=== PATIENT | male | born 1970 | race Two or more races ===

== ENCOUNTER 2023-12-09 10:55 | Outpatient (AMB) | payer OTHER, SELFPAY ==
[2023-12-09 11:07] VITALS: BP 174/79; PULSE 73; O2SAT 98; BMI 25.8
--- NOTE | 2023-12-09 11:07 | A.OFFVIS_ITS ---
Vital Signs 12/09/23 11:07 Height 5 ft 6 in Weight 160 lb BMI 25.8 BP 174/79 H Blood Pressure Location Rt brachial Position Sitting Pulse 73 Pulse Source Pulse Oximeter Pulse Oximetry (%) 98 Oxygen Delivery Method Room Air Intake Visit Reasons: Lumbar Radiculopathy Allergies No Known Allergies Allergy (Verified 12/09/23 11:08) Medication List - Last Reconciled 12/09/23 by Carol Mccoy albuterol sulfate 90 mcg/actuation 1 puff inhalation QID euxessqesj-ttuuncnbzmdox-frwz 50-325-40 mg 1 cap PO Q6H PRN cholecalciferol (vitamin D3) 50 mcg PO DAILY duloxetine 60 mg PO DAILY vdgnaxrlihv-viadeehsv-sfztidla 200-62.5-25 mcg (Trelegy Ellipta) 1 inh inhalation DAILY gabapentin 100 mg PO TID hydrochlorothiazide 25 mg PO DAILY levothyroxine 25 mcg PO DAILY lisinopril 20 mg PO DAILY montelukast (Singulair) 10 mg PO DAILY naproxen (Naprosyn) 500 mg PO BID omeprazole 20 mg PO DAILY risperidone 4 mg PO DAILY sumatriptan succinate take 1 tab at onset of headache; if no relief, may repeat 1 tab after at least 2 hrs; max = 2 tabs/24 hrs PO tramadol 50 mg PO BID PRN trazodone 100 mg PO BID valacyclovir 1,000 mg PO TID HPI Comments Details: Donavon is a very pleasant 53-year-old male who presented to the office today for evaluation and management of his chronic right lower back pain 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 He has been suffering with this pain for greater than 1 year, has been worse over the last couple of months. He has completed physical therapy without improvement of his symptoms. He continues with home exercise program but it is painful and does not provide him much relief Taking prescription medications (gabapentin/duloxetine), nonsteroidal anti- inflammatory medications all without improvement of his symptoms Reports he had a recent MRI at [facility], results are not available for review though his referral containing office note where the provider noted MRI was significant for L3-4 disc herniation, L3 radiculopathy. Pain today is rated as a 9/10, constant and worse in the evening Pain is worse with walking and standing He has not found anything that makes the pain better Denies red flag symptoms including new loss of bowel, bladder or saddle anesthesia In terms of muscle damage condition is described as aching, spasming, stabbing, sharp, shooting Pain is negatively impacting patient's enjoyment of life, general activity, mood, sleeping, recreational activities and relationships with people Denies current use of anticoagulants Denies implantable devices, pacemaker or defibrillator Denies current use of nicotine, tobacco, alcohol or illicit substances Review of Systems Const All systems reviewed & are unremarkable except as noted in HPI and below Physical Exam Vital Signs: Last Vital Signs Pulse 73 12/09/23 11:07 BP 174/79 H 12/09/23 11:07 Pulse Ox 98 12/09/23 11:07 Oxygen Delivery Method Room Air 12/09/23 11:07 BMI result Body Mass Index 25.8 General: awake, alert, oriented. Answers questions appropriately. Fully engaged in examination. Skin: warm, dry, intact HEENT: Normocephalic. Hearing intact. Cardiac: External chest normal in appearance. Respiratory: No cough, audible wheezing or stridor. Abdomen: without gross distension. MS: No obvious swelling or deformities. Able to stand on bilateral tiptoes and bilateral heels.? Able to transition from sit to stand unassisted. Ambulates with bilaterally normal heel strike and toe off SLR positive on the right Tenderness over right L3-4 vertebrae Negative footdrop, negative clonus Bilateral lower extremity strength 5/5 Nontender over PSIS Neurological: Oriented to person, place, time and situation. Thought process intact. Ambulates with the use of a cane Psychiatric: Appropriate mood and affect. Good judgment and insight. Assessment & Plan Assessment & Plan (1) Right lumbar radiculopathy: Code(s): M54.16 - Radiculopathy, lumbar region Category: Medical Plan Patient presented to the office today for evaluation and management of his chronic right lower back pain History, physical exam and provocative testing consistent with right lumbar radiculopathy MRI results have been requested from [facility] for review Discussed options for treatment including diagnostic interventional testing, epidural steroid injections, peripheral nerve stimulation with Sprint, RFA and more permanent neuromodulation. Plan for right L3-4 transforaminal epidural steroid injection under fluoroscopy guidance with local anesthetic pending review MRI. All questions and concerns have been answered and patient agrees with the plan. Follow up after injections and sooner if needed. Coding Level of Care Code New Pt Level 4 (77325) Complex EM visit Add On G2211 Diagnoses Right lumbar radiculopathy M54.16
== END 2023-12-09 11:39 | disposition home or self-care (01) ==
PROVIDERS: PCP Internal Medicine; Visit Provider Registered Nurse Emergency
DX: M54.16 Radiculopathy, lumbar region (principal)
CPT/HCPCS: 99204; G2211

== ENCOUNTER → 2023-12-09 10:55 | Outpatient (BNVA) | payer OTHER, SELFPAY | PROVIDERS: PCP Internal Medicine; Visit Provider Registered Nurse Emergency | DX: M54.16 Radiculopathy, lumbar region (principal) | CPT/HCPCS: 99202 ==

== ENCOUNTER 2024-04-28 08:48 | Outpatient (AMB) | payer OTHER, SELFPAY ==
--- NOTE | 2024-04-28 08:52 | A.OFFVIS_ITS ---
Vital Signs 3 04/28/24 08:57 Height 5 ft 6 in Weight 168 lb 8 oz BMI 27.2 BP 177/86 H Blood Pressure Location Rt brachial Position Sitting Pulse 67 Pulse Source Pulse Oximeter Pulse Oximetry (%) 98 Oxygen Delivery Method Room Air Intake Visit Reasons: FU pain increasing Intake Note: Pain today 09/17 Steffen House Supervisor Required: Yes Steffen House Supervisor Language: Ski Patroller Name: Hermila Accompanied by: Self / Same As Patient Allergies No Known Allergies Allergy (Verified 04/28/24 08:58) HPI Comments Details: Visit completed with Green[place]ic interpretation by Hermila Obrien. The patient is a 54-year-old male presenting with persistent back pain radiating down the right leg. Occasional numbness and tingling are noted, with primary pain radiating from the back down the right leg. Physical therapy and ibuprofen were ineffective. 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 The condition affects daily activities and causes discomfort with specific movements. - Onset and Timing: Pain started 2 years ago - Quality and Character: Persistent back pain with radiation to the right leg. - Primary Location: Lower back. - Areas of Radiation: Outside of the right leg. - Exacerbating Factors: Certain movements and activities. - Relieving Factors: None have been effective so far. - Activities Interference: Affects daily activities and causes discomfort during specific movements. - Affect: The pain impacts his daily activities. - Analgesia: Attempted ibuprofen with no relief; PT with no relief - Adverse Effects: None reported from ibuprofen. - Activities of Daily Living: Pain interferes with daily life, impacting comfort and movement. - Aberrant Drug Related Behaviors: None reported. 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 He has been suffering with this pain for greater than 1 year, has been worse over the last couple of months. He has completed physical therapy without improvement of his symptoms. He continues with home exercise program but it is painful and does not provide him much relief Taking prescription medications (gabapentin/duloxetine), nonsteroidal anti- inflammatory medications all without improvement of his symptoms Reports he had a recent MRI at [facility], results are not available for review though his referral containing office note where the provider noted MRI was significant for L3-4 disc herniation, L3 radiculopathy. Pain today is rated as a 9/10, constant and worse in the evening Pain is worse with walking and standing He has not found anything that makes the pain better Denies red flag symptoms including new loss of bowel, bladder or saddle anesthesia In terms of muscle damage condition is described as aching, spasming, stabbing, sharp, shooting Pain is negatively impacting patient's enjoyment of life, general activity, mood, sleeping, recreational activities and relationships with people Denies current use of anticoagulants Denies implantable devices, pacemaker or defibrillator Denies current use of nicotine, tobacco, alcohol or illicit substances [facility] Medical History (Updated 04/28/24 @ 09:21 by Melanie Ramires APRN, PERRI) Migraines Hypertension GERD (gastroesophageal reflux disease) Hypothyroid Review of Systems Const Details: - Neurological: Reports occasional numbness and tingling down the right leg. - Musculoskeletal: Reports persistent back pain radiating down the right leg on the outside. Physical Exam Vital Signs: Last Vital Signs Pulse 67 04/28/24 08:57 BP 177/86 H 04/28/24 08:57 Pulse Ox 98 04/28/24 08:57 Oxygen Delivery Method Room Air 04/28/24 08:57 BMI result Body Mass Index 27.2 General: awake, alert, oriented. Answers questions appropriately. Fully engaged in examination. Skin: warm, dry, intact HEENT: Normocephalic. Hearing intact. Cardiac: External chest normal in appearance. Respiratory: No cough, audible wheezing or stridor. Abdomen: without gross distension. MS: No obvious swelling or deformities. Able to transition from sit to stand unassisted. Ambulates with bilaterally normal heel strike and toe off SLR positive on the right. Negative footdrop, negative clonus Bilateral lower extremity strength 5/5 Neurological: Oriented to person, place, time and situation. Thought process intact. Psychiatric: Appropriate mood and affect. Good judgment and insight. Results Reviewed Results Reviewed: Assessment & Plan Assessment & Plan (1) Right lumbar radiculopathy: Code(s): M54.16 - Radiculopathy, lumbar region Category: Medical (2) Lumbar spondylosis: Code(s): M47.816 - Spondylosis without myelopathy or radiculopathy, lumbar region Category: Medical Plan Foraminal stenosis with radiculopathy will be addressed with a steroid injection targeted at the L4-5 area on the right side. Following approval, we will proceed with the injection and reassess the impact on symptoms after a month. If symptoms persist, a neurosurgical referral will be considered. The patient is keen on conservative management with the injection as a first-line treatment, avoiding surgery unless absolutely necessary. I discussed with the patient the diagnosis of lumbar foraminal stenosis with radiculopathy and the primary treatment option of a steroid injection. The benefits of potentially reducing inflammation and pain were highlighted. Risks include infection, bleeding, and possible inefficacy. We also spoke about surgical options should the injection not suffice, with surgery being a last resort for him. I assured the patient of ongoing monitoring and adjustment of the plan as needed. We agreed to follow up after the injection to assess progress and discuss further options if necessary. will schedule for fluoroscopy guided right L4-5 transforaminal epidural steroid injection with local anesthetic. Patient has exhausted conservative therapy including PT, home exercise program, NSAIDs, prescription medications. - Follow up with me one month after the injection to assess progress. - Report any new symptoms or significant changes in pain. - Consider surgical consultation if symptoms do not improve after conservative measures. - Maintain activities as tolerated, avoiding movements that exacerbate pain. Patient was informed and verbally consented to the use of an ambient scribe for clinic note documentation during this visit. Coding Level of Care Code Est Pt Level 3 (90677) Complex EM visit Add On G2211 Diagnoses Right lumbar radiculopathy M54.16 Lumbar spondylosis M47.816
[2024-04-28 08:57] VITALS: BP 177/86; PULSE 67; O2SAT 98; BMI 27.2
--- OUTSIDE RECORDS SUMMARY | 2024-04-28 09:10 | XMS_ITS ---
Author Organization [facility] [employer] [facility] Address [address] [place] [address] Care Team Providers Care Washhouse Worker Name Role Phone LENCHO FAITH Unavailable [phone] JR NIRMAL Unavailable [phone] MEDICATIONS Medication SIG (Take, Route, Fr equency, Duration) Notes Start Date End Date Status Lisinopril 20 MG TAKE 1 TABLET BY LEANDRO TH EVERY DAY Orally Once a day for 90 days Ac tive Encounters Encounter Location Date Provider Diagnosis [place] [address] [address] 03/06/2024 NIRMAL NORRIS PLAN OF TREATMENT Medication Medication Name Sig Start Date Stop Date Notes Lisinopril 20 MG TAKE 1 TABLET BY LEANDRO TH EVERY DAY Orally Once a day for 90 days Next Appt Details Provider Name:NIRMAL NORRIS, 07/26/2024 09:30:00 AM, [address] [address], [place], [address], Progress Notes * ANTHONY LANDDOB:[birth year] (53 yo M)Acc No.[id number]:03/06/2024 Patient:??ANTWON LAND TO :1970?Age:53 Y?Sex:Poonam castillo Address:[address] [place] [address] * Refills?? Refill Lisinopril Tablet, 20 MG, Orally, 90 Tablet, TAKE 1 TABLET BY MOUTH EVERY DAY, Once a day, 90 days, Refills=3 * true * Date:??
--- OUTSIDE RECORDS SUMMARY | 2024-04-28 09:10 | XMS_ITS | Clinical Summary ---
Author Organization [facility] Address [address] [place] [address] Phone Care Team Providers Care Percussion Welding Machine Operator Name Role Phone Awilda Maldonado DO Primary Care Provider Medical History Medical History Date Comments Asthma DX:Asthma Family History Medical History Relation Name Comments Other: skin cancer Aunt Colon cancer Father Bladder Cancer Mother Stomach cancer Uncle Relation Name Status Comments Aunt Father Mother Alive Uncle Social History Tobacco Use Types Packs/Day Years Used Date Smoking Tobacco: Never Smokeless Tobacco: Never Sex and Gender Information Value Date Recorded Sex Assigned at Not on file Legal Sex Male 7:05 AM EST Gender Identity Not on file Sexual Orientation Not on file Obstetrics History Last Filed Vital Signs Vital Sign Reading Time Taken Comments Blood Pressure 158/77 12/03/2023 8:37 AM EDT Pulse 77 12/03/2023 8:37 AM EDT Temperature - - Respiratory Rate - - Oxygen Saturation - - Inhaled Oxygen Concentration - - Weight 73.7 kg (162 lb 8 oz) 12/03/2023 8:37 AM EDT Height 167.6 cm (5' 6 ) 12/03/2023 8:37 AM EDT Body Mass Index 26.23 12/03/2023 8:37 AM EDT Plan of Treatment Upcoming Encounters Date Type Department Care Team (Late st Contact Info) Description 12/11/2024 8:30 AM EST Office Visit Pulmonolgy - [place] [facility] [address] [place] [phone] Aiyana Gael MD [address] [facility] [address] [place] [address] Health Maintenance Due Date Last Done Comments Hepatitis B Vaccines (1 of 3 - 19+ 3-dose series) 04/20/1987 Pneumococcal Vaccine: 50+ Years (1 of 2 - PCV) 04/20/1987 Pneumococcal Vaccine: Pediatrics (0 to 5 Years) and At-Risk Patients (6 to 64 Years) (1 of 2 - PCV) 04/20/1987 Zoster Vaccines (1 of 2) 2018 Cholesterol Screening (Lipid Panel) 01/17/2022 Colorectal Cancer Screening: Colonoscopy 01/17/2022 Depression Screening 01/17/2022 HIV Screening 01/17/2022 Hepatitis C Screening 01/17/2022 Social Influencers of Health Screening 01/17/2022 COVID-19 Vaccine ( season) 2023 10/15/2021, 12/13/2020, 05/18/2020, Additional history exists Influenza Vaccine (#1) 2023 11/20/2020, 2020 DTaP,Tdap,and Td Vaccines (2 - Td or Tdap) 12/21/2032 12/21/2022 HIB Vaccines Aged Out No longer eligi ble based on patient's age to complete this topic HPV Vaccines Aged Out No longer eligi ble based on patient's age to complete this topic Hepatitis A Vaccines Aged Out No long er eligible based on patient's age to complete this topic IPV Vaccines Aged Out No longer eligi ble based on patient's age to complete this topic MMR Vaccines Aged Out No longer eligi ble based on patient's age to complete this topic Meningococcal ACWY Vaccine Aged Out N o longer eligible based on patient's age to complete this topic Meningococcal B Vacine Aged Out No lo nger eligible based on patient's age to complete this topic RSV Immunization Patients Under 20 months Aged Out No longer eligible based on patient's age to complete this topic Varicella Vaccines Aged Out No longer eligible based on patient's age to complete this topic Insurance [facility] Member Subscriber Plan / Payer (Ef fective 2018-Present) Name:Melanie Spragueto Relation to Subscriber:Self Name:Melanie Spragueto Payer ID:[id number] Group ID:[id number] Type:Not on file Address: [place] [address] [address] [address] Care Teams Percussion Welding Machine Operator Relationship Specialty Start Date End Date Awilda Maldonado DO [address] [place] PCP - General Family Medicine 07/21/19
--- OUTSIDE RECORDS SUMMARY | 2024-04-28 09:10 | XMS_ITS ---
Author Organization [facility] Address [address] [place] [id number] Care Team Providers Care Upper Cutter Name Role Phone LENCHO FAITH Unavailable [phone] BUFFYNIRMAL MONET Unavailable [phone] ALLERGIES No Known Allergies REASON FOR VISIT Pt here for follow up, pt states he has been having a lot of migraines. MEDICATIONS Medication SIG (Take, Route, Frequency, Duration) Notes Start Date End Date Status Lisinopril 20 MG TAKE 1 TABLET BY MOUTH EVERY DAY Orally Once a day for 90 days Active Trelegy Ellipta 200-62.5-25 MCG/ACT 1 puff Inhalation Once a day for 30 days 11/24/2022 Active traMADol HCl 50 MG 1 tablet as needed Orally twice a day for 10 days Active SUMAtriptan Succinate 100 MG 1 tablet at least 2 hours between doses as needed Orally Twice a day Active traZODone HCl 100 MG 2 tablet at bedtime Orally Once a day Active Albuterol Sulfate HFA 108 (9 0 Base) MCG/ACT 1 puff as needed shortness of breath/wheezing Inhalation every 4 hrs for 30 days 11/24/2022 Active Albuterol Sulfate HFA 108 (9 0 Base) MCG/ACT INHALE 1 PUFF BY MOUTH EVERY 4 HOURS NEEDED for 66 Active risperiDONE 4 MG 1 tablet Orally Once a day Active Naprosyn 500 MG 1 tablet with food o r milk as needed Orally every 12 hrs for 30 days 12/13/2020 Active Omeprazole 20 MG 1 capsule 30 minutes before morning meal Orally Once a day for 90 days Active Vitamin D 50 MCG (2000 UT) 1 capsule Ora lly Once a day for 90 days Active Dkpqtmdkoe-PTIG-Ttjwmjle 50-325-40 MG 1 capsule as needed Orally every 6 hours for 10 days 03/23/2022 Active valACYclovir HCl 1 GM 1 tablet Orally th ree times a day for 10 day(s) 04/13/2022 Active Levothyroxine Sodium 25 MCG 1 tablet in the morning on an empty stomach Orally Once a day for 90 days Active Gabapentin 100 MG 1 capsule Orally three times a day for 90 days Active oxyCODONE HCl 5 MG 1 tablet as needed prn severe pain Orally every 4-6 hrs for 10 days Active DULoxetine HCl 60 MG 1 capsule Orally On ce a day for 90 days Active hydroCHLOROthiazide 25 MG 1 tablet in th e morning Orally Once a day for 90 days Active Singulair 10 MG 1 tablet Orally Once a day for 90 days Active SOCIAL HISTORY Tobacco Use: Social History Observation Description Date Details (start date - stop date) Never Smoker NA - NA Sex Assigned At : Social History Observation Description Sex Assigned At Unknown Tobacco Use/Smoking Question Answer Notes Are you a nonsmoker VITAL SIGNS Blood pressure systolic 140 mm Hg 03/28/19 25 Blood pressure diastolic 84 mm Hg 025 Heart Rate 90 /min 03/28/2024 Height 66 in 03/28/2024 Weight 170 lbs 03/28/2024 BMI 27.44 kg/m2 03/28/2024 Oximetry 99 % 03/28/2024 Encounters Encounter Location Date Provider Diagnosis [place] [address] [address] 03/28/2024 NIRMAL NORRIS Hypertension, unspecified type I10 ; Lumbar radiculopathy M54.16 ; Hip pain, right M25.551 ; Combined hyperlipidemia E78.2 ; Dorsalgia, unspecified M54.9 ; Herniated intervertebral disc of lumbar spine M51.26 and Mild major depression F32.0 ASSESSMENTS Encounter Date Diagnosis Assessment Notes Treatment Notes Treatment Clinical Notes Section Notes 03/28/2024 Hypertension, unspecified type (ICD-10 - I10) Acute Concerns/Problem List: 03/28/2024 Chronic conditions discussed. I have given him Nurtec samples Referral to [place] [facility], Patient to follow-up Labs reviewed Of note, some information is being carried forward from prior records for informational purposes only and is being cited so that efficiency, safety and quality of the patient's care is not compromised This note was prepared using voice recognition software and direct typing Please excuse inadvertent thickener operator or typing errors, or uncorrected word substitutions Although every attempt has been made by the provider to proofread this document, occasional misspellings and typographical errors may still be present Due to the previous pandemic, and the use of personal protective equipment (PPE) This may decrease voice recognition accuracy Inadvertent thickener operator errors may occur 03/28/2024 Lumbar radiculopathy (ICD-10 - M54.16) Acute Concerns/Problem List: 03/28/2024 Chronic conditions discussed. I have given him Nurtec samples Referral to [place] [facility], Patient to follow-up Labs reviewed Of note, some information is being carried forward from prior records for informational purposes only and is being cited so that efficiency, safety and quality of the patient's care is not compromised This note was prepared using voice recognition software and direct typing Please excuse inadvertent thickener operator or typing errors, or uncorrected word substitutions Although every attempt has been made by the provider to proofread this document, occasional misspellings and typographical errors may still be present Due to the previous pandemic, and the use of personal protective equipment (PPE) This may decrease voice recognition accuracy Inadvertent thickener operator errors may occur 03/28/2024 Hip pain, right (ICD-10 - M25.551) Acute Concerns/Problem List: 03/28/2024 Chronic conditions discussed. I have given him Nurtec samples Referral to [place] [facility], Patient to follow-up Labs reviewed Of note, some information is being carried forward from prior records for informational purposes only and is being cited so that efficiency, safety and quality of the patient's care is not compromised This note was prepared using voice recognition software and direct typing Please excuse inadvertent thickener operator or typing errors, or uncorrected word substitutions Although every attempt has been made by the provider to proofread this document, occasional misspellings and typographical errors may still be present Due to the previous pandemic, and the use of personal protective equipment (PPE) This may decrease voice recognition accuracy Inadvertent thickener operator errors may occur 03/28/2024 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 I have given him Nurtec samples Referral to [place] [facility], Patient to follow-up Labs reviewed Of note, some information is being carried forward from prior records for informational purposes only and is being cited so that efficiency, safety and quality of the patient's care is not compromised This note was prepared using voice recognition software and direct typing Please excuse inadvertent thickener operator or typing errors, or uncorrected word substitutions Although every attempt has been made by the provider to proofread this document, occasional misspellings and typographical errors may still be present Due to the previous pandemic, and the use of personal protective equipment (PPE) This may decrease voice recognition accuracy Inadvertent thickener operator errors may occur 03/28/2024 Dorsalgia, unspecified (ICD-10 - M54.9) Acute Concerns/Problem List: 03/28/2024 Chronic conditions discussed. I have given him Nurtec samples Referral to [place] [facility], Patient to follow-up Labs reviewed Of note, some information is being carried forward from prior records for informational purposes only and is being cited so that efficiency, safety and quality of the patient's care is not compromised This note was prepared using voice recognition software and direct typing Please excuse inadvertent thickener operator or typing errors, or uncorrected word substitutions Although every attempt has been made by the provider to proofread this document, occasional misspellings and typographical errors may still be present Due to the previous pandemic, and the use of personal protective equipment (PPE) This may decrease voice recognition accuracy Inadvertent thickener operator errors may occur 03/28/2024 Herniated intervertebral disc of lumbar spine (ICD-10 - M51.26) Acute Concerns/Problem List: 03/28/2024 Chronic conditions discussed. I have given him Nurtec samples Referral to [place] [facility], Patient to follow-up Labs reviewed Of note, some information is being carried forward from prior records for informational purposes only and is being cited so that efficiency, safety and quality of the patient's care is not compromised This note was prepared using voice recognition software and direct typing Please excuse inadvertent thickener operator or typing errors, or uncorrected word substitutions Although every attempt has been made by the provider to proofread this document, occasional misspellings and typographical errors may still be present Due to the previous pandemic, and the use of personal protective equipment (PPE) This may decrease voice recognition accuracy Inadvertent thickener operator errors may occur 03/28/2024 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 I have given him Nurte samples Referral to [place] pain [facility], Patient to follow-up Labs reviewed Of note, some information is being carried forward from prior records for informational purposes only and is being cited so that efficiency, safety and quality of the patient's care is not compromised This note was prepared using voice recognition software and direct typing Please excuse inadvertent thickener operator or typing errors, or uncorrected word substitutions Although every attempt has been made by the provider to proofread this document, occasional misspellings and typographical errors may still be present Due to the previous pandemic, and the use of personal protective equipment (PPE) This may decrease voice recognition accuracy Inadvertent thickener operator errors may occur PLAN OF TREATMENT Medication Medication Name Sig Start Date Stop Date Notes traMADol HCl 50 MG 1 tablet as needed O rally twice a day for 10 days Levothyroxine Sodium 25 MCG 1 tablet in the morning on an empty stomach Orally Once a day for 90 days Gabapentin 100 MG 1 capsule Orally thr ee times a day for 90 days oxyCODONE HCl 5 MG 1 tablet as needed p rn severe pain Orally every 4-6 hrs for 10 days DULoxetine HCl 60 MG 1 capsule Orally On ce a day for 90 days Singulair 10 MG 1 tablet Orally Once a day for 90 days Next Appt Details Provider Name:NIRMAL NORRIS, 07/26/2024 09:30:00 AM, [address] [place] [address], [phone], Progress Notes * ANTWON LANDTODOB:[birth year] (53 yo M)Acc No.[id number]:03/28/2024 Progress Notes Patient:??ANTWON LAND TO Provider:??NIRMAL NORRIS NP :1970?Age:53 Y?Sex:Poonam anna Date:03/28/2024 Address:[address] [place] [address] [place] [facility], [id number] Subjective: * Chief Complaints: * ?1. Pt here for follow up, pt states he has been having a lot of migraines.. * HPI: ?Constitutional:? Patient is here today for a Chronic Disease Management Follow-up Visit ?Patient seen and examined. ? Full past medical history, social history, family history, ?allergies and current medications were reviewed and updated. ?Acute Concerns/Problem List: ?03/28/2024 ?Migraine headaches: sampled Fiorecet, migraines improved ?We discussed prophylactic options such as Nurtec Emgality and Qulipta ?Complains of migraines 3-4 times/month. ?He is now getting FARROWING MANAGER services totaling 1 hour daily ?overwheling issue is pain mgt ?past medical history that includes hypertension, chronic migraines, ?chronic pain syndrome fibromyalgia, acid reflux and low back pain ?He has multiple psychiatric conditions which is managed by [facility] ?Chronic low back pain with some radicular symptoms ?MRI of the lumbar spine was obtained because of likely discogenic cause ?There is multilevel lumbar spine degenerative disease ?Similar to 2020 study ?New rightward L3-L4 disc herniation, with L3 radiculopathy symptoms ?Significant pain discomfort ?No neurological symptoms such as foot drop or lower extremity weakness, bowel or bladder dysfunction ?Discomfort is mostly on the right side ?we did refer to [place] [facility] for further mgt* ?We did put him on gabapentin and Cymbalta ?MRI of the brain without in April 2022 ?No evidence of acute findings ?Some nonspecific white matter changes ?Chronic obstructive asthma, seeing gear tester at [facility] ?using montelukast, advair good effect ?pain contract in place ?MOLST/HCP Discussed and Filed ?Comprehensive labs November 2023 ?Hemoglobin A1c of 5.4 ?Renal function electrolytes and LFTs are stable ?CBC is stable total cholesterol 218, triglycerides 71, HDL 69, LDL 135 ?Vitamin D 19 ?TSH 4.04 ?UA unremarkable ?T4, 1.19 ?PSA 0.7 monitored via urology ?Chemically euthyroid ?Health maintenance ?He has received 3 mRNA vaccines ?Up-to-date on colonoscopy screening 08/2020 ?Flu 2023, at pharmacy ?Shingrix; no previous , to get at pharmacy. * ROS:?All Other Systems:?Review of Systems (ROS)??All others negative except those mentioned in HPI.? * Medical History:??Hypertensi on, Asthma, Seasonal allergies, Hemorrhoids, Thyroid disease, Arthritis, Anxiety, Depression. * Surgical History:??inguinal hernia repair . * Family History:??Father: dec eased.??Mother: .?? * Social History:?Tobacco Use:??Tobacco Use/Smoking??Are you a??nonsmoker.?? * Medications:??Taking traMADo l HCl 50 MG Tablet 1 tablet as needed Orally twice a day , Taking Singulair 10 MG Tablet 1 tablet Orally Once a day , Taking Gabapentin 100 MG Capsule 1 capsule Orally three times a day , Taking DULoxetine HCl 60 MG Capsule Delayed Release Particles 1 capsule Orally Once a day , Taking oxyCODONE HCl 5 MG Tablet 1 tablet as needed prn severe pain Orally every 4-6 hrs , Taking hydroCHLOROthiazide 25 MG Tablet 1 tablet in the morning Orally Once a day , Taking Naprosyn 500 MG Tablet 1 tablet with food or milk as needed Orally every 12 hrs , Taking Omeprazole 20 MG Capsule Delayed Release 1 capsule 30 minutes before morning meal Orally Once a day , Taking Ysmldqqwlv-JZLX-Qkbpxioc 50-325-40 MG Capsule 1 capsule as needed Orally every 6 hours , Taking valACYclovir HCl 1 GM Tablet 1 tablet Orally three times a day , Taking Vitamin D 50 MCG (2000 UT) Capsule 1 capsule Orally Once a day , Taking SUMAtriptan Succinate 100 MG Tablet 1 tablet at least 2 hours between doses as needed Orally Twice a day , Taking Albuterol Sulfate HFA 108 (90 Base) MCG/ACT Aerosol Solution INHALE 1 PUFF BY MOUTH EVERY 4 HOURS NEEDED , Taking risperiDONE 4 MG Tablet 1 tablet Orally Once a day , Taking traZODone HCl 100 MG Tablet 2 tablet at bedtime Orally Once a day , Taking Albuterol Sulfate HFA 108 (90 Base) MCG/ACT Aerosol Solution 1 puff as needed shortness of breath/wheezing Inhalation every 4 hrs , Taking Trelegy Ellipta 200-62.5-25 MCG/ACT Aerosol Powder Breath Activated 1 puff Inhalation Once a day , Taking Levothyroxine Sodium 25 MCG Tablet TAKE 1 TABLET BY MOUTH EVERY DAY IN THE MORNING ON AN EMPTY STOMACH , Taking Lisinopril 20 MG Tablet TAKE 1 TABLET BY MOUTH EVERY DAY Orally Once a day , Discontinued predniSONE 20 MG Tablet 2 tablets with food or milk Orally Once a day , Discontinued predniSONE 10 MG Tablet as directed 50mg x 2 days, 40 mg x days, 30mg x 2 days, 20mg x 2 days, 10mg x 2 days Orally Once a day , Medication List reviewed and reconciled with the patient * Allergies:??N.K.D.A. Objective: * Vitals:??HR:90/min, BP:140/8 4mm Hg, Wt:170lbs, BMI:27.44Index, Ht: 66 in, Oxygen sat %:99%. * Examination: ?General Examination: ?GENERAL APPEARANCE:??in no acute distress, well developed, well nourished.??HEAD:??normocephalic, atraumatic.??EYES:??pupils equal, round, reactive to light and accommodation.??EARS:??normal.??ORAL CAVITY:??mucosa moist.??THROAT:??clear.??NECK/THYROID:??neck supple, full range of motion, no cervical lymphadenopathy.??SKIN:??no suspicious lesions, warm and dry.??HEART:??no murmurs, regular rate and rhythm, S1, S2 normal.??LUNGS:??clear to auscultation bilaterally.??ABDOMEN:??normal, bowel sounds present, soft, nontender, nondistended.??EXTREMITIES:??no clubbing, cyanosis, or edema.??NEUROLOGIC:??nonfocal, motor strength normal upper and lower extremities, sensory exam intact.? Assessment: * Assessment: 1.??Hypertension, unspecifie d type - I10??2.??Lumbar radiculopathy - M54.16??3.??Hip pain, right - M25.551??4.??Combined hyperlipidemia - E78.2??5.??Dorsalgia, unspecified - M54.9??6.??Herniated intervertebral disc of lumbar spine - M51.26??7.??Mild major depression - F32.0?? Acute Concerns/Problem List: 03/28/2024 Chronic conditions discussed. I have given him [facility] samples Referral to [place] pain [facility], Patient to follow-up Labs reviewed Of note, some information is being carried forward from prior records for informational purposes only and is being cited so that efficiency, safety and quality of the patient's care is not compromised This note was prepared using voice recognition software and direct typing Please excuse inadvertent thickener operator or typing errors, or uncorrected word substitutions Although every attempt has been made by the provider to proofread this document, occasional misspellings and typographical errors may still be present Due to the previous pandemic, and the use of personal protective equipment (PPE) This may decrease voice recognition accuracy Inadvertent thickener operator errors may occur. Plan: * Treatment: 2.??Lumbar radiculopathy?? Refill traMADol HCl Tablet, 50 MG, 1 tablet as needed, Orally, twice a day, 10 days, 20 Tablet, Refills 0.? * Images: Billing Information: * Visit Code:?? 61267 Office Visit, Est Pt., Level 4. Modifiers: 25, SA * Procedure Codes:?? Care Plan Details* * Sign off status: Completed true * Provider:??NIRMAL NORRIS NP Date:??03/11 History and Physical Notes * HPI (History of Present Illness) Category Sub-Category Detail Notes Category Not es Constitutional Patient is here today for a Chronic Disease Management Follow-up Visit Patient seen and examined. Full past medical history, social history, family history, allergies and current medications were reviewed and updated. Acute Concerns/Problem List: 03/28/2024 Migraine headaches: sampled Fiorecet, migraines improved We discussed prophylactic options such as Nurtec Emgality and Qulipta Complains of migraines 3-4 times/month. He is now getting FARROWING MANAGER services totaling 1 hour daily overwheling issue is pain mgt past medical history that includes hypertension, chronic migraines, chronic pain syndrome fibromyalgia, acid reflux and low back pain He has multiple psychiatric conditions which is managed by [facility] Chronic low back pain with some radicular symptoms MRI of the lumbar spine was obtained because of likely discogenic cause There is multilevel lumbar spine degenerative disease Similar to 2020 study New rightward L3-L4 disc herniation, with L3 radiculopathy symptoms Significant pain discomfort No neurological symptoms such as foot drop or lower extremity weakness, bowel or bladder dysfunction Discomfort is mostly on the right side we did refer to [place] [facility] for further mgt* We did put him on gabapentin and Cymbalta MRI of the brain without in April 2022 No evidence of acute findings Some nonspecific white matter changes Chronic obstructive asthma, seeing gear tester at [facility] using montelukast, advair good effect pain contract in place MOLST/HCP Discussed and Filed Comprehensive labs November 2023 Hemoglobin A1c of 5.4 Renal function electrolytes and LFTs are stable CBC is stable total cholesterol 218, triglycerides 71, HDL 69, LDL 135 Vitamin D 19 TSH 4.04 UA unremarkable T4, 1.19 PSA 0.7 monitored via urology Chemically euthyroid Health maintenance He has received 3 mRNA vaccines Up-to-date on colonoscopy screening 08/2020 Flu 2023, at pharmacy [facility]; no previous , to get at pharmacy Examination Category Sub-Category Detail Notes Category Not es General Examination GENERAL APPEARANCE: in no ac magdiel distress, well developed, well nourished HEAD: normocephalic, atrau matic EYES: pupils equal, round, reactive to light and accommodation EARS: normal THROAT: clear NECK/THYROID: neck supple, full ra nge of motion, no cervical lymphadenopathy HEART: no murmurs, regular rate and rhythm, S1, S2 normal LUNGS: clear to auscultatio n bilaterally ABDOMEN: normal, bowel sounds present, soft, nontender, nondistended NEUROLOGIC: nonfocal, motor stre ngth normal upper and lower extremities, sensory exam intact SKIN: no suspicious lesion s, warm and dry EXTREMITIES: no clubbing, cyanosi s, or edema ORAL CAVITY: mucosa moist
--- OUTSIDE RECORDS SUMMARY | 2024-04-28 09:10 | XMS_ITS ---
Author Organization [employer] [facility] Address [address] [place] [address] Care Team Providers Care Scientific Process Operator Name Role Phone LENCHO FAITH Unavailable [phone] JR NIRMAL Unavailable [phone] MEDICATIONS Medication SIG (Take, Route, Fr equency, Duration) Notes Start Date End Date Status Lisinopril 20 MG TAKE 1 TABLET BY LEANDRO TH EVERY DAY Orally Once a day for 90 days Ac tive Encounters Encounter Location Date Provider Diagnosis [place] [address] [address] 03/07/2024 NIRMAL NORRIS PLAN OF TREATMENT Medication Medication Name Sig Start Date Stop Date Notes Lisinopril 20 MG TAKE 1 TABLET BY LEANDRO TH EVERY DAY Orally Once a day for 90 days Next Appt Details Provider Name:NIRMAL NORRIS, 07/26/2024 09:30:00 AM, [address] [place] [address], [place], [address], Progress Notes * ANTHONY LANDDOB:[birth year] (53 yo M)Acc No.[id number]:03/07/2024 Patient:??ANTWON LAND TO :1970?Age:53 Y?Sex:Poonam castillo Address:[address] [place] [address] * Refills?? Refill Lisinopril Tablet, 20 MG, Orally, 90 Tablet, TAKE 1 TABLET BY MOUTH EVERY DAY, Once a day, 90 days, Refills=3 * true * Date:??
--- OUTSIDE RECORDS SUMMARY | 2024-04-28 09:10 | XMS_ITS | Clinical Summary ---
Author Organization [facility] Address [address] [place] [address] Care Team Providers Care Cnc Laser Operator Name Role Phone Awilda Maldonado DO Primary Care Provider [phone] Social History Tobacco Use Types Packs/Day Years Used Date Smoking Tobacco: Never Assessed Sex and Gender Information Value Date Recorded Sex Assigned at Not on file Gender Identity Not on file Sexual Orientation Not on file Plan of Treatment Health Maintenance Due Date Last Done Comments Hepatitis B Vaccines (1 of 3 - 3-dose series) 1970 Hepatitis C Screening 1970 COVID-19 Vaccine (#1) 1968 Depression Screening 1980 Preventative Health Evaluation 1986 DTap / Tdap / Td (1 - Tdap) 04/20/1987 Colon Cancer Screening (Colonoscopy) 2013 Shingrix-Zoster Vaccine (1 of 2) 2018 Influenza Vaccine (#1) 2023 Pneumococcal Vaccine Aged Out No long er eligible based on patient's age to complete this topic RSV Ped < 20 months Aged Out No longe r eligible based on patient's age to complete this topic Care Teams Cnc Laser Operator Relationship Specialty Start Date End Date Awilda Maldonado DO [address] [address] PCP - General Family Medicine 07/21/19
--- OUTSIDE RECORDS SUMMARY | 2024-04-28 09:10 | XMS_ITS | Data Portability ---
Author Organization [facility] - Jose Alfredo Nunez [facility], [facility] Address [address] [place] [address] Assessment No assessment recorded. Plan of Treatment Reminders Order Date Submit Date Provider Last Modified By Organization Details Last Modified Time Details Appointments None recorded. Lab vitamin D panel, serum or plasma - blood work to evaluate vitamin d levels 2023 [facility], [address] [facility], [facility] [address], [place], [address], 4 07:15:33 Referral None recorded. Procedures None recorded. Surgeries None recorded. Imaging XR, lumbosacral spine, 4 or more view - Must see 326 4v l-spine 2023 [email or web address] 14 [facility], [address] [facility] [address], [place], [address], 4 17:11:14 Medication Orders gabapentin 300 mg capsule 2023 pchandler 14 Not available 17:11:14 Patient TargetsNo targets recorded. Patient InstructionsNo instructions recorded. Reason for Referral None Reported. Results Created Date Observation Date Name Description Value Unit Range Abnormal Flag Note LastModifiedBy Organization Detail LastModifiedTime 07/01/19 24 07/01/2023 XR, lumbo sacra l spine , 4 or more view [email or web address] ?Encry pted=s hAaTro YD8dLq bEUv6g %2BXZw aYqtaq 0bqfl% 2Fg9IQ a4ajBk vP9nXo QUaueC m3YtLR FvZlgJ JJ8mAn HZtai3 2p7683 AC0Kvb HWMUar eUC8mr 84%3D INTERFACE [facility] [address], [place], [address], 07/01/2023 09:27:22 07/01/19 24 07/01/2023 XR, lumbo sacra l spine , 4 or more view [email or web address] ?Encry pted=s hAaTro YD8dLq bEUv6g %2BXZw aYqtaq 0bqfl% 2Fg9IQ a4ajBk vP9nXo QUaueC m3YtLR FvZlgJ JJ8mAn HZtai3 6e3995 AC0Kvb HWMUar eUC8mr 84%3D INTERFACE [facility] [address], [place], [address], 07/01/2023 09:27:24 07/02/19 24 05/28/2023 MRI, lumba r spine , w/o contr ast No observ ation record ed. BARCODE Not Available 2023 14:18:14 10/09/19 24 06/02/2018 imagi ng/di agnos tic resul t No observ ation record ed. [email or web address] Not Available 09/10 02:51:22 Result Notes None recorded. Problems Name Problem SNOMED Code Status Onset Date Resolution Date Notes Provider Name and Address Organization Details Recorded Time No complaint s 201305201 Active Status: 'I'; Not Available [facility] 4 09:24:21 Pain of right wrist 334498245673 100 Active 2016 Problem Code: M25.531; Problem Code Type: ICD-10; Status: 'A'; Not Available [facility] 4 12:12:15 Lumbar radiculop athy 316480728 Active 2023 Clement Soliman MD [address], [place], [address] , [facility] 4 13:05:35 Radiculop athy due to lumbar intervert ebral disc disorder 824377049919 105 Active 2023 Clement Soliman MD [address], [place], [address] , [facility] 13:05:38 Problem Notes None recorded. Procedures Surgical History Date Name Laterality Status Provider Name and Address Organization Details Recorded Time procedure on testis completed FRANKIE LEE [facility] 07/01/2023 10:25:08 Imaging Results Imaging Date Name Status LastModified by Organiz ation Details LastModified Time 07/01/2023 XR, lumbosacral spine, 4 or more view completed INTERFACE [facility] [address], [place], [address], 07/01/2023 09:27:22 07/01/2023 XR, lumbosacral spine, 4 or more view completed INTERFACE [facility] [address], [place], [address], 07/01/2023 09:27:24 05/28/2023 MRI, lumbar spine, w/o contrast completed [facility] Information not available 07/02/2023 14:18:14 06/02/2018 imaging/diagnos tic result completed [email or web address] Information not available 10/09/2023 02:51:22 Procedure Notes None recorded. Medical Equipment None Reported. Allergies No known drug allergies Medications Name Sig Start Date Stop Date Status Note LastModified by Organization Details LastModified Time butalbital-a cetaminophen -caffeine 50 mg-325 mg-40 mg capsule TAKE 1 CAPSULE BY MOUTH EVERY 6 HOURS FOR 10 DAYS NEEDED active Not Available Not Available No t Available prednisone 10 mg tablet active Not Available Not Available Not Available valacyclovir 1 gram tablet TAKE 1 TABLET BY MOUTH THREE TIMES DAILY FOR 10 DAYS active Not Available Not Available Not Available lisinopril 20 mg tablet TAKE 1 TABLET BY MOUTH EVERY DAY active Not Available Not Available No t Available prednisone 20 mg tablet TAKE 2 TABLETS BY MOUTH EVERY DAY WITH FOOD OR MILK FOR 5 DAYS active Not Available Not Available No t Available tramadol 50 mg tablet TAKE 1 TABLET BY MOUTH TWICE DAILY NEEDED active Not Available Not Available No t Available levothyroxin e 25 mcg tablet TAKE 1 TABLET BY MOUTH EVERY DAY IN THE MORNING ON AN EMPTY STOMACH active Not Available Not Available No t Available risperidone 2 mg tablet TAKE 1 TABLET BY MOUTH EVERY MORNING active Not Available Not Available No t Available trazodone 100 mg tablet TAKE 2 TABLETS BY MOUTH AT BEDTIME active Not Available Not Available No t Available benztropine 1 mg tablet TAKE 1 TABLET BY MOUTH EVERY MORNING active Not Available Not Available No t Available gabapentin 300 mg capsule TAKE 1 CAPSULE BY MOUTH THREE TIMES DAILY active Not Available Not Available Not Available omeprazole 20 mg capsule,erich yed release TAKE 1 CAPSULE BY MOUTH EVERY DAY 30 MINUTES BEFORE BREAKFAST active Not Available Not Available No t Available montelukast 10 mg tablet TAKE 1 TABLET BY MOUTH EVERY DAY active Not Available Not Available No t Available hydrochlorot hiazide 25 mg tablet TAKE 1 TABLET BY MOUTH EVERY DAY IN THE MORNING active Not Available Not Available No t Available gabapentin 100 mg capsule TAKE 1 CAPSULE BY MOUTH THREE TIMES DAILY active Not Available Not Available Not Available albuterol sulfate HFA 90 mcg/actuatio n aerosol inhaler INHALE 1 PUFF BY MOUTH EVERY 4 HOURS NEEDED FOR SHORTNESS OF BREATH OR WHEEZING active Not Available Not Available Not Available risperidone 1 mg tablet TAKE 1 TABLET BY MOUTH EVERY MORNING active Not Available Not Available No t Available naproxen 500 mg tablet TAKE 1 TABLET BY MOUTH EVERY 12 HOURS WITH FOOD OR MILK NEEDED active Not Available Not Available No t Available oxycodone 5 mg tablet TAKE 1 TABLET NEEDED NEEDED FOR SEVERE PAIN ORALLY EVERY 4-6 HOURS FOR 10 DAYS active Not Available Not Available No t Available duloxetine 20 mg capsule,erich yed release TAKE 1 CAPSULE BY MOUTH EVERY MORNING active Not Available Not Available No t Available duloxetine 30 mg capsule,erich yed release TAKE 1 CAPSULE BY MOUTH TWICE A DAY SECOND DOSE DURING THE DAY NO LATER THAN 3PM active Not Available Not Available No t Available duloxetine 60 mg capsule,erich yed release TAKE 1 CAPSULE BY MOUTH EVERY DAY active Not Available Not Available No t Available risperidone risperiDONE 1MG Tablet 2018 active Statu s: 'Curr ent'; Not Available Not Available Not Available cholecalcife rol (vitamin D3) 50 mcg (2,000 unit) capsule TAKE 1 CAPSULE BY MOUTH EVERY DAY active Not Available Not Available No t Available melatonin 10 mg capsule TAKE 1 CAPSULE BY MOUTH DAILY active Not Available Not Available Not Available Wixela Inhub 250 mcg-50 mcg/dose powder for inhalation USE 1 INHALATION BY MOUTH TWICE DAILY active Not Available Not Available Not Available Matt Ellipta 200 mcg-62.5 mcg-25 mcg powder for inhalation INHALE 1 PUFF BY MOUTH EVERY DAY active Not Available Not Available No t Available Vitals Date Recorded Body height Body mass index (BMI) Body weight Provider Name and Address Organization Details Last Updated DateTime 06/29/2023 167.64 cm 26.8 kg/m2 71105.33 g Franchesca Petty [facility] 06/29/2023 10:43:08 Date Recorded Body height Body mass index (BMI) Body weight Provider Name and Address Organization Details Last Updated DateTime 07/01/2023 167.64 cm 26.8 kg/m2 39850.33 g FRANKIE LEE [facility] 07/01/2023 09:36:29 Social History Question Answer Notes LastModified by Organizat ion Details LastModified Time Tobacco Smoking Status Never Smoker Clement Soliman MD [address], [place], [address] 07/01/2023 13:04:49 What Is Your Level Of Alcohol Consumption? Occasional [email or web address] Information not available 07/01/2023 What Is Your Relationship Status? [email or web address] Information not available 07/01/2023 Do You Use Any Illicit Or Recreational Drugs? No [email or web address] Information not available 07/01/2023 Sex: Unknown Functional Status None recorded. Mental Status None recorded. Family History Nothing Reported. Medical History Condition Response Anxiety/Depression Y Thyroid Problems Y Hypertension Y Asthma Y Past Encounters Encounter ID Performer Location Encounter Start Date Encounter Closed Date Diagnosis/Indication Diagnosis SNOMED-CT Code Diagnosis ICD10 Code Diagnosis Note [id number] [facility] [address] [place] [address] 06/29/2023 09:57:26 07/22/2023 11:56:39 Lumbar radiculopathy 182712385 M54.16 [id number] Clement Soliman MD [facility] [address] [place] [address] 07/01/2023 08:54:28 07/23/2023 11:28:25 Lumbar radiculopathy [id number] M54.16 53-year-ol d male with L4-5 right-side d foraminal disc protrusion impinging on the exiting nerve root and traversing nerve root. He has failed significan t rounds of nonoperati ve management to include medication s, physical therapy and injections and he is absolutely miserable. Due to failure of other measures and his debility, we discussed surgical interventi on. He elected for an L4-5 anterior lumbar interbody fusion with posterior instrument ed spinal fusion. He has a history of right inguinal surgery and testicle resection. No other abdominal surgeries. He will be placed on the surgery schedule at time available. After reviewing the patient's history, physical exam, and studies I have decided the patients chronic illness with progressio n warrants elective major surgery. The patient has completed greater than 6 weeks of physician directed nonoperati ve management of this condition to include medication s and physical therapy without improvemen t. I have further discussed the natural progressio n of this disease as well as the operative and non- operative modalities that are appropriat e for treating this disease. The known risks of surgery include infection, bleeding, damage to nerves and/or arteries, continued pain, loss of motion, spinal fluid leak, and the possible need for further surgeries. Risks of anesthesia such as nausea, vomiting, pneumonia, stroke, heart attack and .I will obtain a vitamin D level prior to surgery. He will follow-up for preoperati ve exam.Today I prescribed gabapentin 300 mg 3 times daily to help with his symptoms.Bhupinder gorman has been prescribed medication today. Risks, benefits interactio ns with other medication s have been reviewed and gone over with the patient today. It has been electronic ally sent to the pharmacy. Radiculopa thy due to lumbar intervertebral disc disorder [id number] 93813 M51.16 Lumbar spondylosis 20080 0009 M47.896 Health Concerns Section Related Observation LastModified by Organization Detai ls LastModified Time None Recorded Concern Status LastModified by Organization Details LastModified Time None Recorded Advance Directives Directive None Recorded Payers Encounter Date Sequence Insurance Name Policy Number Policy Otto Covered Member ID Otto Member ID Guarantor Name 06/29/2023 1 [facility] - DOS ON OR AFTER 2022 - ONE CARE (MEDICARE REPLACEMENT/ADV ANTAGE - HMO) Donavon Harristiz [id number] Donavon Schmitz 07/01/2023 1 [facility] - DOS ON OR AFTER 2022 - ONE CARE (MEDICARE REPLACEMENT/ADV ANTAGE - HMO) Donavon Schmitz [id number] Donavon Schmitz Notes Date Note Type Note Provider Name and Address Organization Details Recorded Time 06/29/2023 text/html I am seeing the patient today under the supervision of Dr. Chase who was available but who did not see the patient. HPI: Patient presents for evaluation of ongoing low back pain. Worse sonce April this year. Patient reports radiating right leg pain down to his foot and endorses paresthesias and weakness. Relies now on a cane. Standing and walking worse than sitting. No clear etiology. Worsening over time. 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 He is Mohawk-speaking and a farm equipment assembler was utilized today. Physical therapy for lumbar stabilization and medications in past with minimal relief. He is having side effects including constipation from the medication and wishes to discontinue this. Rates pain moderate to severe. Denies bowel or bladder dysfunction. TREATMENTS: Bed rest, activity modification, home exercise core strengthening lumbar stabilization program over the past 3 months, and NSAIDs. Has had formal Past family, medical, social history and review of systems has been reviewed, updated and signed by me and is located in the patient? ? ?s chart. Examination: The patient is well appearing, alert and oriented x3 and in no acute distress. Gait is antalgic. Inspection of the spine reveals no step off, deformity or overlying skin changes. Range of motion of the lumbar spine is 60% of normal. Range of motion of the hip and knees full without discomfort. The spine is nontender over the paravertebral musculature. Nontender over the greater trochanters. Straight leg raise is positive on the affected side. Strength and sensation intact except for diminished sensation in the L5 distribution right side only and EHL weakness 4 out of 5 on the right side only. Re? e xes normal. No ankle clonus. MRI of the lumbar spine reviewed independently. Images from [facility]. This reveals degenerative disc findings L4-S1 with a right foraminal disc protrusion and severe right-sided foraminal stenosis at L4-5 which correlates with his exam findings. Impression/Plan: Low back pain/Lumbar DDD/Lumbar radiculitis/right lower extremity L5. Discussed the nature of the problem with the patient. Discussed follow-up with one of our spine surgeons to discuss surgical intervention given he has failed to improve over the past several months with conservative care including PT and medications. The patient has a poor quality of life and is unable to work due to this. Follow-up will be arranged. [employer] speech recognition hot end operator software was used to create portions of this document. An attempt at proofreading has been made to minimize errors. Please call for corrections. Juliana Mccauley PA-C [address] [facility] [address], [place], [address], [facility] 06/29/2023 11:46:43 07/01/2023 text/html Mohawk only speaking patient. Entire encounter was completed with the use of a farm equipment assembler took over 20 minutes.53-year-old male presents complaining of lower back pain right lower extremity radiation has been present for a year however increased significantly over the past 3 months. He has been to physical therapy which has not been helpful. Additionally has had injections at [facility] which have lost benefit. Currently taking OxyContin, tramadol, and gabapentin. Clement Soliman MD [address], [place], [address], [facility] 07/01/2023 13:06:11
== END 2024-04-28 09:11 | disposition home or self-care (01) ==
LOC: HO.PMC 08:49
PROVIDERS: PCP Internal Medicine; Visit Provider Registered Nurse Emergency
DX: M54.16 Radiculopathy, lumbar region (principal); M47.816 Spondylosis without myelopathy or radiculopathy, lumbar region
CPT/HCPCS: 99213; G2211

== ENCOUNTER → 2024-04-28 08:48 | Outpatient (BNVA) | payer OTHER, SELFPAY | PROVIDERS: PCP Internal Medicine; Visit Provider Registered Nurse Emergency | DX: M54.16 Radiculopathy, lumbar region (principal); M47.816 Spondylosis without myelopathy or radiculopathy, lumbar region | CPT/HCPCS: 99212 ==

== ENCOUNTER 2024-06-13 06:26 | Outpatient (REF) | payer OTHER, SELFPAY ==
--- NOTE | ~2024-06-13 | FL_ITS ---
EXAMINATION: FL GUIDANCE ONLY HISTORY: M54.16 - Radiculopathy, lumbar region COMPARISON: None available. TECHNIQUE: Fluoroscopy time: 0.4 minutes. Cumulative Dose: 4.14 mGy. DAP: 0.0719 mGym2 Images: 1. FINDINGS: A single fluoroscopic spot film of the lumbar spine in the AP projection demonstrates a needle and contrast material in the region of the right L4-5 facet joint. FL/FL guidance in treatment room IMPRESSION: Fluoroscopy during procedure. Please see procedure report for additional information. Electronically signed by: Robert Mariee MD 06/13/2024 11:54 AM EDT
--- OUTSIDE RECORDS SUMMARY | 2024-06-13 06:30 | XMS_ITS | Patient Health Record ---
Author Organization [facility] Address [address] [place] [address] Care Team Providers Care Manager Policy Name Role Phone LENCHO FAITH Unavailable [phone] NIRMAL NORRIS Unavailable [phone] ALLERGIES No Known Allergies RESULTS Component Value Reference Range Notes GLYCOHEMOGLOBIN PROFILE Reviewed date:12/07/2023 07:58:10 AM Interpretation: Performing Lab: Notes/Report: GLYCATED HEMOGLOBIN A1C 5.4 <6.5 % ESTIMATED AVERAGE GLUCOSE 108 COMPREHENSIVE METABOLIC PANE L Reviewed date:12/06/2023 10:57:31 AM Interpretation: Performing Lab: Notes/Report: Note Original Orderi ng Provider: NIRMAL NORRIS HOG CONFINEMENT SYSTEM MANAGER GLUCOSE 94 70-100 mg/dL Reference range applicable to fasting specimens only BUN 12 5-25 mg/dL CREAT 1.13 0.7-1.3 mg/dL GLOMERULAR FILTRATION RATE 77 >60 This eGFR result was calculated using the CKD-EPI 2020 Creatinine Equation SODIUM 141 135-145 mEq/L POTASSIUM 4.9 3.5-5.5 mmol/L CHLORIDE 108 96-110 mmol/L CO2 29 21-32 mmol/L ANION GAP 4 3-11 CALCIUM 9.3 8.5-10.5 mg/dL TOTAL PROTEIN 6.2 6.0-8.0 G/dL ALBUMIN 3.6 3.2-5.0 G/dL BILI,TOTAL 0.6 0.0-1.4 mg/dL SGOT 18 10-42 U/L SGPT 22 10-60 U/L ALK PHOS 65 42-121 U/L CBC WITH AUTO DIFF Reviewed date:12/06/2023 10:12:19 AM Interpretation: Performing Lab: Notes/Report: WBC 6.5 4.8-10.8 x10-3/uL RBC 4.8 4.5-5.5 x10-6/uL HEMOGLOBIN 14.5 13.5-17.5 g/dL HEMATOCRIT 44.7 42-54 % MCV 92.4 79-98 fL MCH 30.0 27-32 pg MCHC 32.4 32-37 g/dL RDW 12.1 11-15 % PLT COUNT 250 130-400 x10-3/uL MEAN PLATELET VOLUME 9.1 7-11 fL NRBC % AUTO 0.0 <1 % NEUT % 52.0 LYMPH % 28.6 MONO % 8.9 EOS % 9.7 BASO % 0.6 IMMATURE GRANULOCYTES % 0.2 NRBC # AUTO 0.00 <0.1 x10-3/uL ABSOLUTE NEUT 3.38 1.5-7.0 x10-3/uL LYMPH # 1.86 1-5.0 x10-3/uL MONO # 0.58 0.2-1.0 x10-3/uL EOS # 0.63 0-0.5 x10-3/uL BASO # 0.04 0-0.2 x10-3/uL IMMATURE GRANULOCYTES # 0.01 0-0.03 x10-3/uL LIPID PROFILE Reviewed date:12/06/2023 10:57:31 AM Interpretation: Performing Lab: Notes/Report: CHOLESTEROL 218 0-200 mg/dL TRIGLYCERIDES 71 0-150 mg/dL VITAMIN D, 25-HYDROXY Reviewed date:12/06/2023 10:57:31 AM Interpretation: Performing Lab: Notes/Report: VITAMIN D, 25-HYDROXY 19 30-80 ng/mL TSH CASCADE Reviewed date:12/06/2023 10:57:31 AM Interpretation: Performing Lab: Notes/Report: TSH CASCADE 4.04 0.40-4.00 uIU/ml UA WITH CULTURE IF INDICATED Reviewed date:12/06/2023 10:28:07 AM Interpretation: Performing Lab: Notes/Report: GLUCOSE, (UA) NEGATIVE NEGATIVE mg/dL BILIRUBIN, URINE NEGATIVE NEGATIVE KETONE, URINE NEGATIVE NEGATIVE mg/dL SPECIFIC GRAVITY, URINE 1.023 1.003-1.030 BLOOD, URINE NEGATIVE NEGATIVE PH, URINE 5.5 5.0-8.0 PROTEIN, URINE NEGATIVE <= TRACE mg/dl UROBILINOGEN, URINE 0.2 0.2-1.0 E.U./dL NITRITE, URINE NEGATIVE NEGATIVE LEUKOCYTE ESTERASE, URINE NEGATIVE NEGATIVE FREE T4 CASCADE Reviewed date:12/06/2023 10:57:31 AM Interpretation: Performing Lab: Notes/Report: FREE T4 CASCADE 1.19 0.70-1.80 ng/dL Note [employer], a member of [address] [address] 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 Clinical Notes Feli Rand 11:23:25 AM >, Helga Monroe 09/01/2023 03:07:54 PM > The patient was seen on 07/01/2023 Referral Priority Routine Reason [facility] Diagnosis 1 Rectal pain (K62.89) Referral Organization [place] [address] Referring Provider First Name NIRMAL Referring Provider Last Name JR Referring Provider Speciality Internal M edicine Referred Provider Specialty Colorectal S urgery General Notes RUDDY WYATT 08/23 09:30:33 AM > faxed referral to [facility] pt phone # for appt p: [phone] f: [phone], RUDDY WYATT 09/15/2023 04:00:26 PM > dr Orosco retired in February [facility]30[facility]23 11:17:24 AM > faxed form to [facility] with office notes, Helga Monroe 10/07/2023 09:49:30 AM > The office confirmed receipt of referral. They will be calling the patient soon Clinical Notes Eve Maddox 10/07 01:51:44 PM >, recevied fax from [facility] attempted to contact patient twice. a VM and texts have been left. thankyou for your referral., called pt and LVM letting him know if he is still interested in this referral to call [facility]. Referral Priority Routine Reason [facility] Diagnosis 1 Lumbar radiculopathy (M54.16) Referral Organization [facility] Referring Provider First Name LENCHO Referring Provider Last Name VIANNEY Referring Provider Speciality Internal M edicine Referred Provider Specialty Pain Medicin e General Notes Alize Guzman 11/30/2023 10:30:37 AM > Referral with attachment faxed, pt given info to call and schedule visit. [facility] p: [phone] f: [phone] Clinical Notes Helga Monroe 01:35:30 PM > Scheduled for 12/08 at 11 am. Pt is aware Referral Priority Routine MEDICATIONS Medication SIG (Take, Route, Frequency, Duration) Notes Start Date End Date Status Naprosyn 500 MG 1 tablet with food o r milk as needed Orally every 12 hrs for 30 days 12/13/2020 Active Omeprazole 20 MG 1 capsule 30 minutes before morning meal Orally Once a day for 90 days Active Lisinopril 20 MG TAKE 1 TABLET BY MOUTH EVERY DAY Orally Once a day for 90 days Active Trelegy Ellipta 200-62.5-25 MCG/ACT 1 puff Inhalation Once a day for 30 days 11/24/2022 Active traMADol HCl 50 MG 1 tablet as needed Orally twice a day for 10 days Active Levothyroxine Sodium 25 MCG 1 tablet in the morning on an empty stomach Orally Once a day for 90 days Active Vitamin D 50 MCG (2000 UT) 1 capsule Ora lly Once a day for 90 days Active SUMAtriptan Succinate 100 MG 1 tablet at least 2 hours between doses as needed Orally Twice a day Active Gabapentin 100 MG 1 capsule Orally three times a day for 90 days Active Qyplqpcycf-WGUA-Wzcojmqs 50-325-40 MG 1 capsule as needed Orally every 6 hours for 10 days 03/23/2022 Active Singulair 10 MG 1 tablet Orally Once a day for 90 days Active valACYclovir HCl 1 GM 1 tablet Orally th ree times a day for 10 day(s) 04/13/2022 Active oxyCODONE HCl 5 MG 1 tablet as needed prn severe pain Orally every 4-6 hrs for 10 days Active traZODone HCl 100 MG 2 tablet at bedtime Orally Once a day Active DULoxetine HCl 60 MG 1 capsule Orally On a day for 90 days Active Albuterol Sulfate HFA 108 (9 0 Base) MCG/ACT 1 puff as needed shortness of breath/wheezing Inhalation every 4 hrs for 30 days 11/24/2022 Active Albuterol Sulfate HFA 108 (9 0 Base) MCG/ACT INHALE 1 PUFF BY MOUTH EVERY 4 HOURS NEEDED for 66 Active risperiDONE 4 MG 1 tablet Orally Once a day Active hydroCHLOROthiazide 25 MG 1 tablet in th e morning Orally Once a day for 90 days Active IMMUNIZATIONS Vaccine Route Administration Date Status Comme nts Flu vaccine no Preserv 3 and > Unknown 03/11/2020 Administered influenza IM Intramuscular 02/04/2023 Administered Influenza, seasonal, injectable, 6-35 months Unknown 11/20/2020 Administered Pfizer Covid-19 Vaccine Unknown 04/27/2020 Administered Pfizer Covid-19 Vaccine Unknown 05/18/2020 Administered Pfizer Covid-19 Vaccine Unknown 12/13/2020 Administered SOCIAL HISTORY Tobacco Use: Social History Observation Description Date Details (start date - stop date) Never Smoker NA - NA Sex Assigned At : Social History Observation Description Sex Assigned At Unknown Tobacco Use/Smoking Question Answer Notes Are you a nonsmoker PROBLEMS Problem Type ICD Code Onset Dates Problem Status W/U Status Risk SNOMED Code Notes Problem Other specified hypothyroidism (E03.8) Active confirmed Hypothyroidism (32488710) Problem 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) Active confirmed Diabetic retinopathy (1915279) Problem Vitamin D deficiency, unspecified (E55.9) Active confirmed 36899481 Problem Carpal tunnel syndrome, unspecified upper limb (G56.00) Active confirmed Carpal tunnel syndrome (84076001) Problem Other chronic pain (G89.29) Active confirmed 65592631 Problem Encounter for general adult medical examination without abnormal findings (Z00.00) Active confirmed 415302525 Problem Memory loss (R41.3) Active confirmed Memory loss (38415536) Problem Depression, unspecified depression type (F32.9) Active confirmed 84670459 Problem Hypothyroidism, unspecified type (E03.9) Active confirmed 66378505 Problem Sore throat (J02.9) Active confirmed 151604720 Problem Rectal pain (K62.89) Active confirmed 98496204 Problem Left elbow pain (M25.522) Active confirmed 10559873 Problem Hip pain, right (M25.551) Active confirmed Arthralgia of t he pelvic region and thigh (984390201) Problem Exposure to TB (Z20.1) Active confirmed 178632175 Problem Hypertension, unspecified type (I10) Active confirmed 78776512 Problem Lumbar radiculopathy (M54.16) Active confirmed Lumbar radiculopathy (948747956) Problem Ataxia (R27.0) Active confirmed Ataxia (34961072) Problem Herniated intervertebral disc of lumbar spine (M51.26) Active confirmed Displacement of lumbar intervertebral disc without myelopathy (86008607) Problem Combined hyperlipidemia (E78.2) Active confirmed Mixed hyperlipidemia (994650634) Problem 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) Active confirmed Migraine aura without headache (019840079) Problem Depression, unspecified depression type (F32.A) Active confirmed 95728672 Problem 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) Active confirmed 32269484 VITAL SIGNS Heart Rate 90 /min 03/28/2024 Blood pressure diastolic 84 mm Hg 03/28/2024 Oximetry 99 % 03/28/2024 Height 66 in 03/28/2024 Blood pressure systolic 140 mm Hg 03/28/2024 Weight 170 lbs 03/28/2024 BMI 27.44 kg/m2 03/28/2024 Encounters Encounter Location Date Provider Diagnosis [place] [address] [address] 06/21/2023 NIRMAL NORRIS Hypertension, unspecified type I10 ; Lumbar radiculopathy M54.16 ; Hip pain, right M25.551 ; Depression, unspecified depression type F32.A ; Combined hyperlipidemia E78.2 ; Dorsalgia, unspecified M54.9 and Herniated intervertebral disc of lumbar spine M51.26 [place] [address] [address] 08/24/2023 NIRMAL NORRIS Rectal pain K62.89 [place] [address] [address] 11/30/2023 NIRMAL NORRIS Annual physical exam Z00.00 ; Encounter for screening for other disorder Z13.89 ; Encounter for screening for depression Z13.31 ; Hypertension, unspecified type I10 ; Lumbar radiculopathy M54.16 ; Hip pain, right M25.551 ; Combined hyperlipidemia E78.2 ; Dorsalgia, unspecified M54.9 ; Herniated intervertebral disc of lumbar spine M51.26 and Mild major depression F32.[address] [facility] [address] [place] [address] 03/28/2024 NIRMAL NORRIS Hypertension, unspecified type I10 ; Lumbar radiculopathy M54.16 ; Hip pain, right M25.551 ; Combined hyperlipidemia E78.2 ; Dorsalgia, unspecified M54.9 ; Herniated intervertebral disc of lumbar spine M51.26 and Mild major depression F32.[address] [facility] [address] [place] [address] 06/17/2023 NIRMAL BAERTIERNEY Acute right lumbar radiculopathy M54.16 [facility] [address] [place] [address] 08/24/[address] [facility] [address] [facility] [address] [place] [address] 11/30/[address] [facility] [address] [place] [address] 03/06/[address] [facility] [address] [facility] [address] [place] [address] 03/07/2024 NIRMAL ROBERTPankaj ASSESSMENTS Encounter Date Diagnosis Assessment Notes Treatment Notes Treatment Clinical Notes Section Notes 06/17/2023 Acute right lumbar radiculopathy (ICD-10 - M54.16) 06/21/2023 Hypertension, unspecified type (ICD-10 - I10) Patient is here for Chronic Disease Management follow-up visit Acute Concerns/Problem List: 06/21/2023 Chronic conditions discussed. Pain management discussed He will need a referral to spine given MRI findings and significant pain _update labs and MWV in the fall Patient is presenting with back pain. We discussed the differential diagnoses of back pain. These include musculoskeletal causes like arthritis various types, degenerative disc disease of the spine, strain of back muscles causing muscle spasms etc. Primary and secondary malignancies, and abcsess are very rare but important causes of back pain. Most patients with back pain would respond to medications like Tylenol, NSAIDs, muscle relaxants, as tolerated, aqua therapy, physical therapy, back massage, medicated patches, chiropractor interventions and sometimes alternative treatments like acupuncture. Some patients benefit from steroid injections in case of degenerative joint disease in the spine. These injections are given by pain specialist. Narcotics and muscle relaxants can be used for acute exacerbations but they use should be limited and are addicting Certain patients are on chronic narcotics for a long time. Narcotic pain medications can be addictive. they could also cause many other side effects that may be harmful in the long run. We must learn to appreciate that pain is subjective and greatly varies from one patient to another. A holistic approach which is multidimensional and team based generally helps with management of both acute and chronic back pain. Reviewed with patient the importance of medication and treatment plan compliance with BP goal of less then 140/90 per JNC 8 guidelines based on patient's age. This will ensure optimal health outcomes and prevent target organ damage. Made aware that uncontrolled hypertension may be silent and result in a stroke, heart attack, renal failure or even . Discussed the rationale for individualized medication regimen and the effects of their BP. Instructed to seek emergent care if the patient develops a headache, blurry vision, dizziness, chest pain or pressure. We discussed the role of cholesterol and atherosclerosis. Cholesterols broken down into some particles. Cholesterol very important for her body and has an important role in the synthesis of various hormones and neurotransmitters. However, today's cholesterol can have potential complications. Small density LDL particles that are oxidized or particularly dangerous. HDL cholesterol can have a protective effect. Elevated triglycerides levels are also dangerous. An elevated triglyceride and HDL ratio could be a sign of insulin resistance. Statins, fibrates, niacin, fish oil, DHEA, can be beneficial in treatment of dyslipidemia. Lifestyle modification with exercise and appropriate nutrition can decrease the risk of atherosclerosis due to dyslipidemia. Of note, some information is being carried forward from prior records for informational purposes only and is being cited so that efficiency, safety and quality of the patient's care is not compromised This note was prepared using voice recognition software and direct typing Please excuse inadvertent gas engine operator generators or typing errors, or uncorrected word substitutions Although every attempt has been made by the provider to proofread this document, occasional misspellings and typographical errors may still be present Due to the previous pandemic, and the use of personal protective equipment (PPE) This may decrease voice recognition accuracy Inadvertent gas engine operator generators errors may occur 08/24/2023 Rectal pain (ICD-10 - K62.89) Refer to colorectal surgery Of note, some information is being carried forward from prior records for informational purposes only and is being cited so that efficiency, safety and quality of the patient's care is not compromised This note was prepared using voice recognition software and direct typing Please excuse inadvertent gas engine operator generators or typing errors, or uncorrected word substitutions Although every attempt has been made by the provider to proofread this document, occasional misspellings and typographical errors may still be present Due to the previous pandemic, and the use of personal protective equipment (PPE) This may decrease voice recognition accuracy Inadvertent gas engine operator generators errors may occur 11/30/2023 Annual physical exam (ICD-10 - Z00.00) Patient is here for [facility] Acute Concerns/Problem List: 11/30/2023 Chronic conditions discussed. _update labs please Referral to [place] [facility] MOLST/HCP Discussed and Filed Of note, some information is being carried forward from prior records for informational purposes only and is being cited so that efficiency, safety and quality of the patient's care is not compromised This note was prepared using voice recognition software and direct typing Please excuse inadvertent gas engine operator generators or typing errors, or uncorrected word substitutions Although every attempt has been made by the provider to proofread this document, occasional misspellings and typographical errors may still be present Due to the previous pandemic, and the use of personal protective equipment (PPE) This may decrease voice recognition accuracy Inadvertent gas engine operator generators errors may occur 03/28/2024 Hypertension, unspecified type (ICD-10 - I10) Acute Concerns/Problem List: 03/28/2024 Chronic conditions discussed. I have given him Nurtec samples Referral to [facility], Patient to follow-up Labs reviewed Of note, some information is being carried forward from prior records for informational purposes only and is being cited so that efficiency, safety and quality of the patient's care is not compromised This note was prepared using voice recognition software and direct typing Please excuse inadvertent gas engine operator generators or typing errors, or uncorrected word substitutions Although every attempt has been made by the provider to proofread this document, occasional misspellings and typographical errors may still be present Due to the previous pandemic, and the use of personal protective equipment (PPE) This may decrease voice recognition accuracy Inadvertent gas engine operator generators errors may occur 03/28/2024 Lumbar radiculopathy (ICD-10 - M54.16) Acute Concerns/Problem List: 03/28/2024 Chronic conditions discussed. I have given him Nurtec samples Referral to [facility], Patient to follow-up Labs reviewed Of note, some information is being carried forward from prior records for informational purposes only and is being cited so that efficiency, safety and quality of the patient's care is not compromised This note was prepared using voice recognition software and direct typing Please excuse inadvertent gas engine operator generators or typing errors, or uncorrected word substitutions Although every attempt has been made by the provider to proofread this document, occasional misspellings and typographical errors may still be present Due to the previous pandemic, and the use of personal protective equipment (PPE) This may decrease voice recognition accuracy Inadvertent gas engine operator generators errors may occur 11/30/2023 Encounter for screening for other disorder (ICD-10 - Z13.89) Patient is here for [facility] Acute Concerns/Problem List: 11/30/2023 Chronic conditions discussed. _update labs please Referral to [facility] MOLST/HCP Discussed and Filed Of note, some information is being carried forward from prior records for informational purposes only and is being cited so that efficiency, safety and quality of the patient's care is not compromised This note was prepared using voice recognition software and direct typing Please excuse inadvertent gas engine operator generators or typing errors, or uncorrected word substitutions Although every attempt has been made by the provider to proofread this document, occasional misspellings and typographical errors may still be present Due to the previous pandemic, and the use of personal protective equipment (PPE) This may decrease voice recognition accuracy Inadvertent gas engine operator generators errors may occur 06/21/2023 Lumbar radiculopathy (ICD-10 - M54.16) Patient is here for Chronic Disease Management follow-up visit Acute Concerns/Problem List: 06/21/2023 Chronic conditions discussed. Pain management discussed He will need a referral to spine given MRI findings and significant pain _update labs and MWV in the fall Patient is presenting with back pain. We discussed the differential diagnoses of back pain. These include musculoskeletal causes like arthritis various types, degenerative disc disease of the spine, strain of back muscles causing muscle spasms etc. Primary and secondary malignancies, and abcsess are very rare but important causes of back pain. Most patients with back pain would respond to medications like Tylenol, NSAIDs, muscle relaxants, as tolerated, aqua therapy, physical therapy, back massage, medicated patches, chiropractor interventions and sometimes alternative treatments like acupuncture. Some patients benefit from steroid injections in case of degenerative joint disease in the spine. These injections are given by pain specialist. Narcotics and muscle relaxants can be used for acute exacerbations but they use should be limited and are addicting Certain patients are on chronic narcotics for a long time. Narcotic pain medications can be addictive. they could also cause many other side effects that may be harmful in the long run. We must learn to appreciate that pain is subjective and greatly varies from one patient to another. A holistic approach which is multidimensional and team based generally helps with management of both acute and chronic back pain. Reviewed with patient the importance of medication and treatment plan compliance with BP goal of less then 140/90 per JNC 8 guidelines based on patient's age. This will ensure optimal health outcomes and prevent target organ damage. Made aware that uncontrolled hypertension may be silent and result in a stroke, heart attack, renal failure or even . Discussed the rationale for individualized medication regimen and the effects of their BP. Instructed to seek emergent care if the patient develops a headache, blurry vision, dizziness, chest pain or pressure. We discussed the role of cholesterol and atherosclerosis. Cholesterols broken down into some particles. Cholesterol very important for her body and has an important role in the synthesis of various hormones and neurotransmitters. However, today's cholesterol can have potential complications. Small density LDL particles that are oxidized or particularly dangerous. HDL cholesterol can have a protective effect. Elevated triglycerides levels are also dangerous. An elevated triglyceride and HDL ratio could be a sign of insulin resistance. Statins, fibrates, niacin, fish oil, DHEA, can be beneficial in treatment of dyslipidemia. Lifestyle modification with exercise and appropriate nutrition can decrease the risk of atherosclerosis due to dyslipidemia. Of note, some information is being carried forward from prior records for informational purposes only and is being cited so that efficiency, safety and quality of the patient's care is not compromised This note was prepared using voice recognition software and direct typing Please excuse inadvertent gas engine operator generators or typing errors, or uncorrected word substitutions Although every attempt has been made by the provider to proofread this document, occasional misspellings and typographical errors may still be present Due to the previous pandemic, and the use of personal protective equipment (PPE) This may decrease voice recognition accuracy Inadvertent gas engine operator generators errors may occur 11/30/2023 Encounter for screening for depression (ICD-10 - Z13.31) Patient is here for [facility] Acute Concerns/Problem List: 11/30/2023 Chronic conditions discussed. _update labs please Referral to [facility] MOLST/HCP Discussed and Filed Of note, some information is being carried forward from prior records for informational purposes only and is being cited so that efficiency, safety and quality of the patient's care is not compromised This note was prepared using voice recognition software and direct typing Please excuse inadvertent gas engine operator generators or typing errors, or uncorrected word substitutions Although every attempt has been made by the provider to proofread this document, occasional misspellings and typographical errors may still be present Due to the previous pandemic, and the use of personal protective equipment (PPE) This may decrease voice recognition accuracy Inadvertent gas engine operator generators errors may occur 06/21/2023 Hip pain, right (ICD-10 - M25.551) Patient is here for Chronic Disease Management follow-up visit Acute Concerns/Problem List: 06/21/2023 Chronic conditions discussed. Pain management discussed He will need a referral to spine given MRI findings and significant pain _update labs and MWV in the fall Patient is presenting with back pain. We discussed the differential diagnoses of back pain. These include musculoskeletal causes like arthritis various types, degenerative disc disease of the spine, strain of back muscles causing muscle spasms etc. Primary and secondary malignancies, and abcsess are very rare but important causes of back pain. Most patients with back pain would respond to medications like Tylenol, NSAIDs, muscle relaxants, as tolerated, aqua therapy, physical therapy, back massage, medicated patches, chiropractor interventions and sometimes alternative treatments like acupuncture. Some patients benefit from steroid injections in case of degenerative joint disease in the spine. These injections are given by pain specialist. Narcotics and muscle relaxants can be used for acute exacerbations but they use should be limited and are addicting Certain patients are on chronic narcotics for a long time. Narcotic pain medications can be addictive. they could also cause many other side effects that may be harmful in the long run. We must learn to appreciate that pain is subjective and greatly varies from one patient to another. A holistic approach which is multidimensional and team based generally helps with management of both acute and chronic back pain. Reviewed with patient the importance of medication and treatment plan compliance with BP goal of less then 140/90 per JNC 8 guidelines based on patient's age. This will ensure optimal health outcomes and prevent target organ damage. Made aware that uncontrolled hypertension may be silent and result in a stroke, heart attack, renal failure or even . Discussed the rationale for individualized medication regimen and the effects of their BP. Instructed to seek emergent care if the patient develops a headache, blurry vision, dizziness, chest pain or pressure. We discussed the role of cholesterol and atherosclerosis. Cholesterols broken down into some particles. Cholesterol very important for her body and has an important role in the synthesis of various hormones and neurotransmitters. However, today's cholesterol can have potential complications. Small density LDL particles that are oxidized or particularly dangerous. HDL cholesterol can have a protective effect. Elevated triglycerides levels are also dangerous. An elevated triglyceride and HDL ratio could be a sign of insulin resistance. Statins, fibrates, niacin, fish oil, DHEA, can be beneficial in treatment of dyslipidemia. Lifestyle modification with exercise and appropriate nutrition can decrease the risk of atherosclerosis due to dyslipidemia. Of note, some information is being carried forward from prior records for informational purposes only and is being cited so that efficiency, safety and quality of the patient's care is not compromised This note was prepared using voice recognition software and direct typing Please excuse inadvertent gas engine operator generators or typing errors, or uncorrected word substitutions Although every attempt has been made by the provider to proofread this document, occasional misspellings and typographical errors may still be present Due to the previous pandemic, and the use of personal protective equipment (PPE) This may decrease voice recognition accuracy Inadvertent gas engine operator generators errors may occur 03/28/2024 Hip pain, right (ICD-10 - M25.551) Acute Concerns/Problem List: 03/28/2024 Chronic conditions discussed. I have given him Nurtec samples Referral to [facility], Patient to follow-up Labs reviewed Of note, some information is being carried forward from prior records for informational purposes only and is being cited so that efficiency, safety and quality of the patient's care is not compromised This note was prepared using voice recognition software and direct typing Please excuse inadvertent gas engine operator generators or typing errors, or uncorrected word substitutions Although every attempt has been made by the provider to proofread this document, occasional misspellings and typographical errors may still be present Due to the previous pandemic, and the use of personal protective equipment (PPE) This may decrease voice recognition accuracy Inadvertent gas engine operator generators errors may occur 11/30/2023 Hypertension, unspecified type (ICD-10 - I10) Patient is here for [facility] Acute Concerns/Problem List: 11/30/2023 Chronic conditions discussed. _update labs please Referral to [facility]/HCP Discussed and Filed Of note, some information is being carried forward from prior records for informational purposes only and is being cited so that efficiency, safety and quality of the patient's care is not compromised This note was prepared using voice recognition software and direct typing Please excuse inadvertent gas engine operator generators or typing errors, or uncorrected word substitutions Although every attempt has been made by the provider to proofread this document, occasional misspellings and typographical errors may still be present Due to the previous pandemic, and the use of personal protective equipment (PPE) This may decrease voice recognition accuracy Inadvertent gas engine operator generators errors may occur 03/28/2024 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 I have given him Nurtec samples Referral to [facility], Patient to follow-up Labs reviewed Of note, some information is being carried forward from prior records for informational purposes only and is being cited so that efficiency, safety and quality of the patient's care is not compromised This note was prepared using voice recognition software and direct typing Please excuse inadvertent gas engine operator generators or typing errors, or uncorrected word substitutions Although every attempt has been made by the provider to proofread this document, occasional misspellings and typographical errors may still be present Due to the previous pandemic, and the use of personal protective equipment (PPE) This may decrease voice recognition accuracy Inadvertent gas engine operator generators errors may occur 06/21/2023 Depression, unspecified depression type (ICD-10 - F32.A) Patient is here for Chronic Disease Management follow-up visit Acute Concerns/Problem List: 06/21/2023 Chronic conditions discussed. Pain management discussed He will need a referral to spine given MRI findings and significant pain _update labs and MWV in the fall Patient is presenting with back pain. We discussed the differential diagnoses of back pain. These include musculoskeletal causes like arthritis various types, degenerative disc disease of the spine, strain of back muscles causing muscle spasms etc. Primary and secondary malignancies, and abcsess are very rare but important causes of back pain. Most patients with back pain would respond to medications like Tylenol, NSAIDs, muscle relaxants, as tolerated, aqua therapy, physical therapy, back massage, medicated patches, chiropractor interventions and sometimes alternative treatments like acupuncture. Some patients benefit from steroid injections in case of degenerative joint disease in the spine. These injections are given by pain specialist. Narcotics and muscle relaxants can be used for acute exacerbations but they use should be limited and are addicting Certain patients are on chronic narcotics for a long time. Narcotic pain medications can be addictive. they could also cause many other side effects that may be harmful in the long run. We must learn to appreciate that pain is subjective and greatly varies from one patient to another. A holistic approach which is multidimensional and team based generally helps with management of both acute and chronic back pain. Reviewed with patient the importance of medication and treatment plan compliance with BP goal of less then 140/90 per JNC 8 guidelines based on patient's age. This will ensure optimal health outcomes and prevent target organ damage. Made aware that uncontrolled hypertension may be silent and result in a stroke, heart attack, renal failure or even . Discussed the rationale for individualized medication regimen and the effects of their BP. Instructed to seek emergent care if the patient develops a headache, blurry vision, dizziness, chest pain or pressure. We discussed the role of cholesterol and atherosclerosis. Cholesterols broken down into some particles. Cholesterol very important for her body and has an important role in the synthesis of various hormones and neurotransmitters. However, today's cholesterol can have potential complications. Small density LDL particles that are oxidized or particularly dangerous. HDL cholesterol can have a protective effect. Elevated triglycerides levels are also dangerous. An elevated triglyceride and HDL ratio could be a sign of insulin resistance. Statins, fibrates, niacin, fish oil, DHEA, can be beneficial in treatment of dyslipidemia. Lifestyle modification with exercise and appropriate nutrition can decrease the risk of atherosclerosis due to dyslipidemia. Of note, some information is being carried forward from prior records for informational purposes only and is being cited so that efficiency, safety and quality of the patient's care is not compromised This note was prepared using voice recognition software and direct typing Please excuse inadvertent gas engine operator generators or typing errors, or uncorrected word substitutions Although every attempt has been made by the provider to proofread this document, occasional misspellings and typographical errors may still be present Due to the previous pandemic, and the use of personal protective equipment (PPE) This may decrease voice recognition accuracy Inadvertent gas engine operator generators errors may occur 06/21/2023 Combined hyperlipidemia (ICD-10 - E78.2) Patient is here for Chronic Disease Management follow-up visit Acute Concerns/Problem List: 06/21/2023 Chronic conditions discussed. Pain management discussed He will need a referral to spine given MRI findings and significant pain _update labs and MWV in the fall Patient is presenting with back pain. We discussed the differential diagnoses of back pain. These include musculoskeletal causes like arthritis various types, degenerative disc disease of the spine, strain of back muscles causing muscle spasms etc. Primary and secondary malignancies, and abcsess are very rare but important causes of back pain. Most patients with back pain would respond to medications like Tylenol, NSAIDs, muscle relaxants, as tolerated, aqua therapy, physical therapy, back massage, medicated patches, chiropractor interventions and sometimes alternative treatments like acupuncture. Some patients benefit from steroid injections in case of degenerative joint disease in the spine. These injections are given by pain specialist. Narcotics and muscle relaxants can be used for acute exacerbations but they use should be limited and are addicting Certain patients are on chronic narcotics for a long time. Narcotic pain medications can be addictive. they could also cause many other side effects that may be harmful in the long run. We must learn to appreciate that pain is subjective and greatly varies from one patient to another. A holistic approach which is multidimensional and team based generally helps with management of both acute and chronic back pain. Reviewed with patient the importance of medication and treatment plan compliance with BP goal of less then 140/90 per JNC 8 guidelines based on patient's age. This will ensure optimal health outcomes and prevent target organ damage. Made aware that uncontrolled hypertension may be silent and result in a stroke, heart attack, renal failure or even . Discussed the rationale for individualized medication regimen and the effects of their BP. Instructed to seek emergent care if the patient develops a headache, blurry vision, dizziness, chest pain or pressure. We discussed the role of cholesterol and atherosclerosis. Cholesterols broken down into some particles. Cholesterol very important for her body and has an important role in the synthesis of various hormones and neurotransmitters. However, today's cholesterol can have potential complications. Small density LDL particles that are oxidized or particularly dangerous. HDL cholesterol can have a protective effect. Elevated triglycerides levels are also dangerous. An elevated triglyceride and HDL ratio could be a sign of insulin resistance. Statins, fibrates, niacin, fish oil, DHEA, can be beneficial in treatment of dyslipidemia. Lifestyle modification with exercise and appropriate nutrition can decrease the risk of atherosclerosis due to dyslipidemia. Of note, some information is being carried forward from prior records for informational purposes only and is being cited so that efficiency, safety and quality of the patient's care is not compromised This note was prepared using voice recognition software and direct typing Please excuse inadvertent gas engine operator generators or typing errors, or uncorrected word substitutions Although every attempt has been made by the provider to proofread this document, occasional misspellings and typographical errors may still be present Due to the previous pandemic, and the use of personal protective equipment (PPE) This may decrease voice recognition accuracy Inadvertent gas engine operator generators errors may occur 11/30/2023 Lumbar radiculopathy (ICD-10 - M54.16) Patient is here for [facility] Acute Concerns/Problem List: 11/30/2023 Chronic conditions discussed. _update labs please Referral to [facility]ST/HCP Discussed and Filed Of note, some information is being carried forward from prior records for informational purposes only and is being cited so that efficiency, safety and quality of the patient's care is not compromised This note was prepared using voice recognition software and direct typing Please excuse inadvertent gas engine operator generators or typing errors, or uncorrected word substitutions Although every attempt has been made by the provider to proofread this document, occasional misspellings and typographical errors may still be present Due to the previous pandemic, and the use of personal protective equipment (PPE) This may decrease voice recognition accuracy Inadvertent gas engine operator generators errors may occur 03/28/2024 Dorsalgia, unspecified (ICD-10 - M54.9) Acute Concerns/Problem List: 03/28/2024 Chronic conditions discussed. I have given him Nurtec samples Referral to [facility], Patient to follow-up Labs reviewed Of note, some information is being carried forward from prior records for informational purposes only and is being cited so that efficiency, safety and quality of the patient's care is not compromised This note was prepared using voice recognition software and direct typing Please excuse inadvertent gas engine operator generators or typing errors, or uncorrected word substitutions Although every attempt has been made by the provider to proofread this document, occasional misspellings and typographical errors may still be present Due to the previous pandemic, and the use of personal protective equipment (PPE) This may decrease voice recognition accuracy Inadvertent gas engine operator generators errors may occur 11/30/2023 Hip pain, right (ICD-10 - M25.551) Patient is here for [facility] Acute Concerns/Problem List: 11/30/2023 Chronic conditions discussed. _update labs please Referral to [facility]ST/HCP Discussed and Filed Of note, some information is being carried forward from prior records for informational purposes only and is being cited so that efficiency, safety and quality of the patient's care is not compromised This note was prepared using voice recognition software and direct typing Please excuse inadvertent gas engine operator generators or typing errors, or uncorrected word substitutions Although every attempt has been made by the provider to proofread this document, occasional misspellings and typographical errors may still be present Due to the previous pandemic, and the use of personal protective equipment (PPE) This may decrease voice recognition accuracy Inadvertent gas engine operator generators errors may occur 03/28/2024 Herniated intervertebral disc of lumbar spine (ICD-10 - M51.26) Acute Concerns/Problem List: 03/28/2024 Chronic conditions discussed. I have given him Nurtec samples Referral to [facility], Patient to follow-up Labs reviewed Of note, some information is being carried forward from prior records for informational purposes only and is being cited so that efficiency, safety and quality of the patient's care is not compromised This note was prepared using voice recognition software and direct typing Please excuse inadvertent gas engine operator generators or typing errors, or uncorrected word substitutions Although every attempt has been made by the provider to proofread this document, occasional misspellings and typographical errors may still be present Due to the previous pandemic, and the use of personal protective equipment (PPE) This may decrease voice recognition accuracy Inadvertent gas engine operator generators errors may occur 06/21/2023 Dorsalgia, unspecified (ICD-10 - M54.9) Patient is here for Chronic Disease Management follow-up visit Acute Concerns/Problem List: 06/21/2023 Chronic conditions discussed. Pain management discussed He will need a referral to spine given MRI findings and significant pain _update labs and MWV in the fall Patient is presenting with back pain. We discussed the differential diagnoses of back pain. These include musculoskeletal causes like arthritis various types, degenerative disc disease of the spine, strain of back muscles causing muscle spasms etc. Primary and secondary malignancies, and abcsess are very rare but important causes of back pain. Most patients with back pain would respond to medications like Tylenol, NSAIDs, muscle relaxants, as tolerated, aqua therapy, physical therapy, back massage, medicated patches, chiropractor interventions and sometimes alternative treatments like acupuncture. Some patients benefit from steroid injections in case of degenerative joint disease in the spine. These injections are given by pain specialist. Narcotics and muscle relaxants can be used for acute exacerbations but they use should be limited and are addicting Certain patients are on chronic narcotics for a long time. Narcotic pain medications can be addictive. they could also cause many other side effects that may be harmful in the long run. We must learn to appreciate that pain is subjective and greatly varies from one patient to another. A holistic approach which is multidimensional and team based generally helps with management of both acute and chronic back pain. Reviewed with patient the importance of medication and treatment plan compliance with BP goal of less then 140/90 per JNC 8 guidelines based on patient's age. This will ensure optimal health outcomes and prevent target organ damage. Made aware that uncontrolled hypertension may be silent and result in a stroke, heart attack, renal failure or even . Discussed the rationale for individualized medication regimen and the effects of their BP. Instructed to seek emergent care if the patient develops a headache, blurry vision, dizziness, chest pain or pressure. We discussed the role of cholesterol and atherosclerosis. Cholesterols broken down into some particles. Cholesterol very important for her body and has an important role in the synthesis of various hormones and neurotransmitters. However, today's cholesterol can have potential complications. Small density LDL particles that are oxidized or particularly dangerous. HDL cholesterol can have a protective effect. Elevated triglycerides levels are also dangerous. An elevated triglyceride and HDL ratio could be a sign of insulin resistance. Statins, fibrates, niacin, fish oil, DHEA, can be beneficial in treatment of dyslipidemia. Lifestyle modification with exercise and appropriate nutrition can decrease the risk of atherosclerosis due to dyslipidemia. Of note, some information is being carried forward from prior records for informational purposes only and is being cited so that efficiency, safety and quality of the patient's care is not compromised This note was prepared using voice recognition software and direct typing Please excuse inadvertent gas engine operator generators or typing errors, or uncorrected word substitutions Although every attempt has been made by the provider to proofread this document, occasional misspellings and typographical errors may still be present Due to the previous pandemic, and the use of personal protective equipment (PPE) This may decrease voice recognition accuracy Inadvertent gas engine operator generators errors may occur 06/21/2023 Herniated intervertebral disc of lumbar spine (ICD-10 - M51.26) Patient is here for Chronic Disease Management follow-up visit Acute Concerns/Problem List: 06/21/2023 Chronic conditions discussed. Pain management discussed He will need a referral to spine given MRI findings and significant pain _update labs and MWV in the fall Patient is presenting with back pain. We discussed the differential diagnoses of back pain. These include musculoskeletal causes like arthritis various types, degenerative disc disease of the spine, strain of back muscles causing muscle spasms etc. Primary and secondary malignancies, and abcsess are very rare but important causes of back pain. Most patients with back pain would respond to medications like Tylenol, NSAIDs, muscle relaxants, as tolerated, aqua therapy, physical therapy, back massage, medicated patches, chiropractor interventions and sometimes alternative treatments like acupuncture. Some patients benefit from steroid injections in case of degenerative joint disease in the spine. These injections are given by pain specialist. Narcotics and muscle relaxants can be used for acute exacerbations but they use should be limited and are addicting Certain patients are on chronic narcotics for a long time. Narcotic pain medications can be addictive. they could also cause many other side effects that may be harmful in the long run. We must learn to appreciate that pain is subjective and greatly varies from one patient to another. A holistic approach which is multidimensional and team based generally helps with management of both acute and chronic back pain. Reviewed with patient the importance of medication and treatment plan compliance with BP goal of less then 140/90 per JNC 8 guidelines based on patient's age. This will ensure optimal health outcomes and prevent target organ damage. Made aware that uncontrolled hypertension may be silent and result in a stroke, heart attack, renal failure or even . Discussed the rationale for individualized medication regimen and the effects of their BP. Instructed to seek emergent care if the patient develops a headache, blurry vision, dizziness, chest pain or pressure. We discussed the role of cholesterol and atherosclerosis. Cholesterols broken down into some particles. Cholesterol very important for her body and has an important role in the synthesis of various hormones and neurotransmitters. However, today's cholesterol can have potential complications. Small density LDL particles that are oxidized or particularly dangerous. HDL cholesterol can have a protective effect. Elevated triglycerides levels are also dangerous. An elevated triglyceride and HDL ratio could be a sign of insulin resistance. Statins, fibrates, niacin, fish oil, DHEA, can be beneficial in treatment of dyslipidemia. Lifestyle modification with exercise and appropriate nutrition can decrease the risk of atherosclerosis due to dyslipidemia. Of note, some information is being carried forward from prior records for informational purposes only and is being cited so that efficiency, safety and quality of the patient's care is not compromised This note was prepared using voice recognition software and direct typing Please excuse inadvertent gas engine operator generators or typing errors, or uncorrected word substitutions Although every attempt has been made by the provider to proofread this document, occasional misspellings and typographical errors may still be present Due to the previous pandemic, and the use of personal protective equipment (PPE) This may decrease voice recognition accuracy Inadvertent gas engine operator generators errors may occur 03/28/2024 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 I have given him Nurtec samples Referral to [facility], Patient to follow-up Labs reviewed Of note, some information is being carried forward from prior records for informational purposes only and is being cited so that efficiency, safety and quality of the patient's care is not compromised This note was prepared using voice recognition software and direct typing Please excuse inadvertent gas engine operator generators or typing errors, or uncorrected word substitutions Although every attempt has been made by the provider to proofread this document, occasional misspellings and typographical errors may still be present Due to the previous pandemic, and the use of personal protective equipment (PPE) This may decrease voice recognition accuracy Inadvertent gas engine operator generators errors may occur 11/30/2023 Combined hyperlipidemia (ICD-10 - E78.2) Patient is here for [facility] Acute Concerns/Problem List: 11/30/2023 Chronic conditions discussed. _update labs please Referral to [facility] MOLST/HCP Discussed and Filed Of note, some information is being carried forward from prior records for informational purposes only and is being cited so that efficiency, safety and quality of the patient's care is not compromised This note was prepared using voice recognition software and direct typing Please excuse inadvertent gas engine operator generators or typing errors, or uncorrected word substitutions Although every attempt has been made by the provider to proofread this document, occasional misspellings and typographical errors may still be present Due to the previous pandemic, and the use of personal protective equipment (PPE) This may decrease voice recognition accuracy Inadvertent gas engine operator generators errors may occur 11/30/2023 Dorsalgia, unspecified (ICD-10 - M54.9) Patient is here for [facility] Acute Concerns/Problem List: 11/30/2023 Chronic conditions discussed. _update labs please Referral to [facility] MOLST/HCP Discussed and Filed Of note, some information is being carried forward from prior records for informational purposes only and is being cited so that efficiency, safety and quality of the patient's care is not compromised This note was prepared using voice recognition software and direct typing Please excuse inadvertent gas engine operator generators or typing errors, or uncorrected word substitutions Although every attempt has been made by the provider to proofread this document, occasional misspellings and typographical errors may still be present Due to the previous pandemic, and the use of personal protective equipment (PPE) This may decrease voice recognition accuracy Inadvertent gas engine operator generators errors may occur 11/30/2023 Herniated intervertebral disc of lumbar spine (ICD-10 - M51.26) Patient is here for [facility] Acute Concerns/Problem List: 11/30/2023 Chronic conditions discussed. _update labs please Referral to [facility] MOLST/HCP Discussed and Filed Of note, some information is being carried forward from prior records for informational purposes only and is being cited so that efficiency, safety and quality of the patient's care is not compromised This note was prepared using voice recognition software and direct typing Please excuse inadvertent gas engine operator generators or typing errors, or uncorrected word substitutions Although every attempt has been made by the provider to proofread this document, occasional misspellings and typographical errors may still be present Due to the previous pandemic, and the use of personal protective equipment (PPE) This may decrease voice recognition accuracy Inadvertent gas engine operator generators errors may occur 11/30/2023 Mild major depression (ICD-10 - F32.0) Patient is here for [facility] Acute Concerns/Problem List: 11/30/2023 Chronic conditions discussed. _update labs please Referral to [facility] MOLST/HCP Discussed and Filed Of note, some information is being carried forward from prior records for informational purposes only and is being cited so that efficiency, safety and quality of the patient's care is not compromised This note was prepared using voice recognition software and direct typing Please excuse inadvertent gas engine operator generators or typing errors, or uncorrected word substitutions Although every attempt has been made by the provider to proofread this document, occasional misspellings and typographical errors may still be present Due to the previous pandemic, and the use of personal protective equipment (PPE) This may decrease voice recognition accuracy Inadvertent gas engine operator generators errors may occur PLAN OF TREATMENT Pending Test Test Name Order Date EMG/NCV ARMS 06/07/2020 TSH 06/07/2020 Influenza A/B and RSV PCR 12/18/2021 Throat culture 01/13/2021 MRI : Lumbar without contrast 05/10/2023 MRI : Lumbar without contrast 10/01/2021 25OH VITAMIN D 06/21/2023 CBC (COMPLETE BLOOD COUNT) 05/07/2020 CBC (COMPLETE BLOOD COUNT) 07/15/2021 CBC (COMPLETE BLOOD COUNT) WITH DIFF COMPREHENSIVE METABOLIC PANEL 07/15/2021 COMPREHENSIVE METABOLIC PANEL 05/07/2020 COMPREHENSIVE METABOLIC PANEL 06/21/2023 HEMOGLOBIN A1C 06/21/2023 HEMOGLOBIN A1C 05/07/2020 HEMOGLOBIN A1C 07/15/2021 LIPID PANEL 05/07/2020 LIPID PANEL 07/15/2021 LIPID PANEL 06/21/2023 PSA, SCREEN 07/15/2021 TSH 07/15/2021 TSH WITH REFLEX TO FT4 06/21/2023 URINALYSIS W/REFLEX CULTURE 06/21/2023 Chest 2 Views Frontal and Lat 04/10/2022 MRI Brain w/o Contrast 03/23/2022 XR Chest 2 Views 11/24/2022 XR Elbow 2 Views LT 07/15/2021 XR Hip 2+ Views RT 10/01/2021 XR Wrist 3+ Views RT 12/13/2020 QUANTIFERON TB GOLD PLUS 07/15/2021 THROAT CULTURE 12/18/2021 COMPLETE URINALYSIS 05/07/2020 COMPLETE URINALYSIS 07/15/2021 SARS CoV 2 RNA(COVID 19), QUALITATIVE NA AT 12/18/2021 Future Test Test Name Order Date 25OH VITAMIN D 11/21/2022 CBC (COMPLETE BLOOD COUNT) WITH DIFF COMPREHENSIVE METABOLIC PANEL 11/21/2022 HEMOGLOBIN A1C 11/21/2022 LIPID PANEL 11/21/2022 PSA, SCREEN 11/21/2022 T4, TOTAL 11/21/2022 TSH 11/21/2022 URINALYSIS W/REFLEX CULTURE 11/21/2022 Next Appt Details Provider Name:NIRMAL NORRIS, 07/26/2024 09:30:00 AM, [address] [place] [address], [facility] [address], [place], [address], Insurance Providers Payer Name Payer Address Payer Phone Subscriber Number Group Number Insured Name Patient Relationship to Insured Coverage Start Date Coverage End Date [employer] One [employer]/Loren or Options [address] [place] [address] [id number] ANTHONY LAND Self - patient is the insured MEDICAL (GENERAL) HISTORY Medical History History ICD Code hypertension asthma seasonal allergies hemorrhoids thyroid disease Arthritis anxiety depression Surgical History Surgery Date(Month/Year) inguinal hernia repair
--- OUTSIDE RECORDS SUMMARY | 2024-06-13 06:30 | XMS_ITS ---
Author Organization [facility] Address [address] [place] [address] Care Team Providers Care Physician Practice Manager Name Role Phone LENCHO FAITH Unavailable [phone] JR NIRMAL Unavailable [phone] MEDICATIONS Medication SIG (Take, Route, Fr equency, Duration) Notes Start Date End Date Status Lisinopril 20 MG TAKE 1 TABLET BY LEANDRO TH EVERY DAY Orally Once a day for 90 days Ac tive Encounters Encounter Location Date Provider Diagnosis [place] [address] [address] 03/06/2024 NIRMAL NORRIS PLAN OF TREATMENT Medication Medication Name Sig Start Date Stop Date Notes Lisinopril 20 MG TAKE 1 TABLET BY LEANDRO TH EVERY DAY Orally Once a day for 90 days Next Appt Details Provider Name:NIRMAL NORRIS, 07/26/2024 09:30:00 AM, [address] [address], [place], [address], Progress Notes * ANTHONY LANDDOB:[birth year] (53 yo M)Acc No.[id number]:03/06/2024 Patient:??ANTWON LAND TO :1970?Age:53 Y?Sex:Poonam castillo Address:[address] [place] [place] [address] * Refills?? Refill Lisinopril Tablet, 20 MG, Orally, 90 Tablet, TAKE 1 TABLET BY MOUTH EVERY DAY, Once a day, 90 days, Refills=3 * true * Date:??
--- OUTSIDE RECORDS SUMMARY | 2024-06-13 06:30 | XMS_ITS | Clinical Summary ---
Author Organization [facility] Address [address] [place] [address] Phone Care Team Providers Care Road Service Locksmith Name Role Phone Awilda Maldonado DO Primary Care Provider [phone] Medical History Medical History Date Comments Asthma [...] 8:30 AM EST Office Visit Pulmonolgy - [place] [address] [facility] [address] [place] [address] Aiyana Gale MD 175 [facility] [address] [place] [address] Health Maintenance Due Date Last Done Comments [...] 2023 10/15/2021, 12/13/2020, 05/18/2020, Additional history exists Hypertension/CHF/CAD Annual BMP Blood Test 05/16/2024 Influenza Vaccine (Season Ended) 2024 11/20/2020, 03/11/2020 DTaP,Tdap,and Td Vaccines (2 - Td or [...] age to complete this topic Meningococcal B Vaccine Aged Out No l onger eligible based on patient's age to complete this topic RSV Immunization Patients Under 20 months Aged Out No longer eligible based on patient's age to complete this topic Varicella Vaccines Aged Out No longer eligible based on patient's age to complete this topic Insurance [facility] Member Subscriber Plan / Payer (Ef fective 2018-Present) Name:Melanie Spragueto Relation to Subscriber:Self Name:Donavon Sprague Payer ID:[id number] Group ID:[id number] Type:Not on file Address: [place] [address] [place] [address] Service Locksmith Relationship Specialty Start Date End Date Awilda Maldonado DO [address] [place], [place] PCP - General Family Medicine 07/21/19
--- OUTSIDE RECORDS SUMMARY | 2024-06-13 06:30 | XMS_ITS ---
Author Organization [facility] Address [address] [place] [address] Care Team Providers Care Model And Dye Person Name Role Phone LENCHO FAITH Unavailable [phone] JR NIRMAL Unavailable [phone] MEDICATIONS Medication SIG (Take, Route, Fr equency, Duration) Notes Start Date End Date Status Lisinopril 20 MG TAKE 1 TABLET BY LEANDRO TH EVERY DAY Orally Once a day for 90 days Ac tive Encounters Encounter Location Date Provider Diagnosis [place] [address] [address] 03/07/2024 NIRMAL NORRIS PLAN OF TREATMENT Medication Medication Name Sig Start Date Stop Date Notes Lisinopril 20 MG TAKE 1 TABLET BY LEANDRO TH EVERY DAY Orally Once a day for 90 days Next Appt Details Provider Name:NIRMAL NORRIS, 07/26/2024 09:30:00 AM, [address] [address], [place], [address], Progress Notes * ANTHONY LANDDOB:[birth year] (53 yo M)Acc No.[id number]:03/07/2024 Patient:??ANTWON LAND TO :1970?Age:53 Y?Sex:Poonam castillo Address:[address] [place] [address] * Refills?? Refill Lisinopril Tablet, 20 MG, Orally, 90 Tablet, TAKE 1 TABLET BY MOUTH EVERY DAY, Once a day, 90 days, Refills=3 * true * Date:??
--- OUTSIDE RECORDS SUMMARY | 2024-06-13 06:30 | XMS_ITS | Clinical Summary ---
Author Organization [facility] Address [address] [place] [address] Care Team Providers Care Cylinder Press Feeder Name Role Phone Awilda Maldonado DO Primary Care Provider [phone] Social History Tobacco Use Types Packs/Day Years [...] age to complete this topic Care Teams Cylinder Press Feeder Relationship Specialty Start Date End Date Awilda Maldonado DO [address] [address] PCP - General Family Medicine 07/21/19
--- OUTSIDE RECORDS SUMMARY | 2024-06-13 06:31 | XMS_ITS | Data Portability ---
Author Organization [facility], [facility] Address [address] [place] [address] Assessment No assessment recorded. Plan of Treatment Reminders Order Date Submit Date Provider Last Modified By Organization Details Last Modified Time Details Appointments None recorded. Lab vitamin D panel, serum or plasma - blood work to evaluate vitamin d levels 2023 [facility], [address] [facility], [facility] [address], [place], [address], 4 07:15:33 Referral None recorded. Procedures None recorded. Surgeries None recorded. Imaging XR, lumbosacral spine, 4 or more view - Must see 326 4v l-spine 2023 [facility] 14 [facility], [address] [facility] [address], [place], [address], 4 17:11:14 Medication Orders gabapentin 300 mg [...] a4ajBk vP9nXo QUaueC m3YtLR FvZlgJ JJ8mAn HZtai3 5s0071 AC0Kvb HWMUar eUC8mr 84%3D INTERFACE [facility] [address], [place], [address], 07/01/2023 09:27:22 07/01/19 24 07/01/2023 XR, lumbo sacra l spine , 4 or more view http:/ [email or web address] ?Encry pted=s hAaTro YD8dLq bEUv6g %2BXZw aYqtaq 0bqfl% 2Fg9IQ a4ajBk vP9nXo QUaueC m3YtLR FvZlgJ JJ8mAn HZtai3 3e0286 AC0Kvb HWMUar eUC8mr 84%3D INTERFACE [facility] [address], [place], [address], 07/01/2023 09:27:24 07/02/19 24 05/28/2023 MRI, lumba [...] Organization Details Recorded Time No complaint s [id number] Active Status: 'I'; Not Available [facility] 4 09:24:21 Pain of right wrist 475031360006 100 Active 2016 Problem Code: M25.531; Problem Code Type: ICD-10; Status: 'A'; Not Available [facility] 4 12:12:15 Lumbar radiculop athy 901099078 Active 2023 Clement Soliman MD [address], [place], [address] , [facility] 4 13:05:35 Radiculop athy due to lumbar intervert ebral disc disorder 487538797495 105 Active 2023 Clement Soliman MD [address], [place], [address] , [facility] 13:05:38 Problem Notes None recorded. Procedures Surgical History Date Name Laterality Status Provider Name and Address Organization Details Recorded Time procedure on testis completed FRANKIE LEE [facility] 07/01/2023 10:25:08 Imaging Results Imaging Date Name Status LastModified by Organiz ation Details LastModified Time 07/01/2023 XR, lumbosacral spine, 4 or more view completed INTERFACE [facility] [address], [place], [address], 07/01/2023 09:27:22 07/01/2023 XR, lumbosacral spine, 4 or more view completed INTERFACE [facility] [address], [place], [address], 07/01/2023 09:27:24 05/28/2023 MRI, lumbar spine, w/o [...] Updated DateTime 06/29/2023 167.64 cm 26.8 kg/m2 12999.33 g Franchesca Petty [facility] 06/29/2023 10:43:08 Date Recorded Body height Body mass index (BMI) Body weight Provider Name and Address Organization Details Last Updated DateTime 07/01/2023 167.64 cm 26.8 kg/m2 82110.33 g FRANKIE LEE [facility] 07/01/2023 09:36:29 Social History Question Answer Notes LastModified by Organizat ion Details LastModified Time Tobacco Smoking Status Never Smoker Clement Soliman MD [address], [place], [address] 07/01/2023 13:04:49 What Is Your Level Of Alcohol Consumption? Occasional [email or web address] Information not available 07/01/2023 What Is Your Relationship Status? [email or web address] Information not available 07/01/2023 Do You Use Any Illicit Or Recreational Drugs? No [email or web address] Information not available 07/01/2023 Sex: Unknown Functional Status None recorded. Mental Status None recorded. Family History Nothing Reported. Medical History Condition Response Anxiety/Depression Y Thyroid Problems Y Hypertension Y Asthma Y Past Encounters Encounter ID Performer Location Encounter Start Date Encounter Closed Date Diagnosis/Indication Diagnosis SNOMED-CT Code Diagnosis ICD10 Code Diagnosis Note [id number] THADDEUS Lenz [address] [place] [address] 06/29/2023 09:57:26 07/22/2023 11:56:39 Lumbar radiculopathy 798919726 M54.16 [id number] Clement Soliman MD [facility] [address] [place] [address] 07/01/2023 08:54:28 07/23/2023 11:28:25 Lumbar radiculopathy 907604000 M54.16 53-year-ol d male with L4-5 right-side [...] thy due to lumbar intervertebral disc disorder 6188131551 28149 M51.16 Lumbar spondylosis 57785 0009 M47.896 Health Concerns Section Related Observation LastModified by Organization Detai ls LastModified Time None Recorded Concern Status LastModified by Organization Details LastModified Time None Recorded Advance Directives Directive None Recorded Payers Encounter Date Sequence Insurance Name Policy Number Policy Otto Covered Member ID Otto Member ID Guarantor Name 06/29/2023 1 [facility] - DOS ON OR AFTER 2022 - ONE CARE (MEDICARE REPLACEMENT/ADV ANTAGE - HMO) Donavon Harristiz [id number] Donavon Schmitz 07/01/2023 1 [facility] - DOS ON OR AFTER 2022 - ONE CARE (MEDICARE REPLACEMENT/ADV ANTAGE - HMO) Donavon Schmitz [id number] Donavon Schmitz Notes Date Note Type Note [...] Worsening over time. 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 He is Iranian-speaking and a funeral home makeup artist was utilized today. Physical therapy for lumbar [...] the lumbar spine reviewed independently. Images from [facility]. This reveals degenerative disc findings [...] due to this. Follow-up will be arranged. [employer] speech recognition parking cashier software was used to create portions of this document. An attempt at proofreading has been made to minimize errors. Please call for corrections. Juliana Mccauley PA-C [address] [facility] [address], [place], [address], [facility] 06/29/2023 11:46:43 07/01/2023 text/html Iranian only speaking patient. Entire encounter was completed with the use of a funeral home makeup artist took over 20 minutes.53-year-old male presents complaining of lower back pain right lower extremity radiation has been present for a year however increased significantly over the past 3 months. He has been to physical therapy which has not been helpful. Additionally has had injections at [facility] which have lost benefit. Currently taking OxyContin, tramadol, and gabapentin. Clement Soliman MD [address], [place], [address], [facility] 07/01/2023 13:06:11
== END 2024-06-13 06:27 | disposition home or self-care (01) ==
LOC: CF 06:26
PROVIDERS: Visit Provider Anesthesiology
DX: M54.16 Radiculopathy, lumbar region (principal)
CPT/HCPCS: 64483; J2003; J3301; Q9967

== ENCOUNTER 2024-06-13 11:00 | Outpatient (AMB) | payer OTHER, SELFPAY ==
[2024-06-13 11:06] VITALS: BP 138/82; PULSE 79; O2SAT 99
--- NOTE | 2024-06-13 11:06 | MHC.OFFVIS ---
Vital Signs 06/13/24 11:06 06/13/24 11:52 Height 5 ft 6 in BP 138/82 142/82 H Blood Pressure Location Lt brachial Lt brachial Position Sitting Sitting Pulse 79 75 Pulse Source Pulse Oximeter Pulse Oximeter Pulse Oximetry (%) 99 100 Oxygen Delivery Method Room Air Room Air Intake Visit Reasons: RIGHT L4, L5 TFESI Vocational Rehabilitation Supervisor Required: Yes Allergies No Known Allergies Allergy (Verified 04/28/24 08:58) [facility] Medical History (Updated 04/28/24 @ 09:21 by Melanie Ramires, EXPLOSIVE ORDNANCE DISPOSAL TECHNICIAN, TECHNOLOGY ARCHITECT) Migraines Hypertension GERD (gastroesophageal reflux disease) Hypothyroid Physical Exam Vital Signs: Last Vital Signs Pulse 75 06/13/24 11:52 BP 142/82 H 06/13/24 11:52 Pulse Ox 100 06/13/24 11:52 Oxygen Delivery Method Room Air 06/13/24 11:52 Assessment & Plan Assessment & Plan (1) Right lumbar radiculopathy: Code(s): M54.16 - Radiculopathy, lumbar region Category: Medical Plan Transforaminal right L4-L5 epidural steroid injection Informed consent was thoroughly explained to the patient before the procedure. The risks were delineated as bleeding infection peripheral nerve damage spinal cord damage and headache. ? The patient came to the operating room.? He was positioned prone on operating table with a pillow under his abdomen.? Time-out was performed delineating correct site and side of the procedure, nature of the injection, name and date of of the patient. The lower back of the patient was prepped with ChloraPrep and draped with sterile utility towels.? C-arm was brought over the operating field and sq picture of L4 vertebra were demonstrated on the screen.? The right side was chosen 1st as the side of the injection.? Tilting machine ipsilateral to the right at the level of L5 1st the most prominent picture of the superior articular process of L5 vertebra on the right was demonstrated on the screen. Lateral border of the SAP on the right right pedicle was demonstrated on the screen.? The projection of the point of interest to the skin was injected with small amount of lidocaine 1% and after that 22 gauge 5 in needle was inserted through the skin wheal and advanced to were the lateral border of the SAP in tunnel vision fashion. When tip of the needle gently contacted the lateral border of the SAP the needle deviated slightly lateral and after that immediately medial and advanced further 3 mm. Patient reported paresthesia going down the right leg, contrast was injected demonstrating neurorgam. The needle was removed and decision was made to change the direction and approach of the injection. 3 mm below the level of the lowest point of the pedicle projection to the skin small amount of lidocaine 1% 2 cc was injected to anesthetize the skin.? After that 5 in 22 gauge Quincke point needle was inserted through the skin wheal and was advanced to were the L4- L5 foramina on anterior posterior , lateral and oblique views intermittently.? When tip of the needle entered foramina projection on AP view injection of the contrast was performed demonstrating epidural spread of the contrast. No intravascular or intrathecal and no intraneural spread of the contrast this time was noted.? After that injection of the treatment medicine 3 cc of lidocaine 1% mixed with Kenalog 40 mg was injected into the foramina.? Injection of the contrast and injection of the treatment medicine was observed live on the screen.? No intrathecal and no intravascular spread of the contrast was noted. Upon completion of the procedure sterile Band-Aids were applied. Patient tolerated procedure well he was taken outside of the operating room where he recovered uneventfully.? He went home without immediate complications. Orders: Orders FL guidance in treatment room Today M54.16 - Radiculopathy, lumbar region Coding Level of Care Code Procedure Only Diagnoses Right lumbar radiculopathy M54.16
[2024-06-13 11:52] VITALS: BP 142/82; PULSE 75; O2SAT 100
--- OUTSIDE RECORDS SUMMARY | 2024-06-13 12:43 | XMS_ITS | Clinical Summary ---
Author Organization [facility] Address [address] [place] [address] Care Team Providers Care Senior Data Warehouse Architect Name Role Phone Awilda Maldonado DO Primary Care Provider [phone] Social History Tobacco Use Types Packs/Day Years [...] age to complete this topic Care Teams Senior Data Warehouse Architect Relationship Specialty Start Date End Date Awilda Maldonado DO [address] [address] PCP - General Family Medicine 07/21/19
--- OUTSIDE RECORDS SUMMARY | 2024-06-13 12:43 | XMS_ITS ---
Author Organization [facility] Address [address] [place] [phone] Care Team Providers Care Hydrochloric Manufacturing Supervisor Name Role Phone LENCHO FAITH Unavailable [phone] BUFFYNIRMAL MONET Unavailable [phone] ALLERGIES No Known Allergies REASON FOR VISIT [...] Once a day for 90 days Active Wsntrkqnrj-OPRV-Ghhnsupp 50-325-40 MG 1 capsule as needed Orally [...] 03/28/2024 Encounters Encounter Location Date Provider Diagnosis [place] [id number] [address] 03/28/2024 NIRMAL NORRIS Hypertension, unspecified type I10 [...] have given him Nurtec samples Referral to [place] [facility], Patient to follow-up Labs reviewed Of note, some information is being carried forward from prior records for informational purposes only and is being cited so that efficiency, safety and quality of the patient's care is not compromised This note was prepared using voice recognition software and direct typing Please excuse inadvertent reimbursement specialist or typing errors, or uncorrected word substitutions Although every attempt has been made by the provider to proofread this document, occasional misspellings and typographical errors may still be present Due to the previous pandemic, and the use of personal protective equipment (PPE) This may decrease voice recognition accuracy Inadvertent reimbursement specialist errors may occur 03/28/2024 Lumbar radiculopathy (ICD-10 - M54.16) Acute Concerns/Problem List: 03/28/2024 Chronic conditions discussed. I have given him Nurtec samples Referral to [place] [facility], Patient to follow-up Labs reviewed Of note, some information is being carried forward from prior records for informational purposes only and is being cited so that efficiency, safety and quality of the patient's care is not compromised This note was prepared using voice recognition software and direct typing Please excuse inadvertent reimbursement specialist or typing errors, or uncorrected word substitutions Although every attempt has been made by the provider to proofread this document, occasional misspellings and typographical errors may still be present Due to the previous pandemic, and the use of personal protective equipment (PPE) This may decrease voice recognition accuracy Inadvertent reimbursement specialist errors may occur 03/28/2024 Hip pain, right (ICD-10 - M25.551) Acute Concerns/Problem List: 03/28/2024 Chronic conditions discussed. I have given him Nurtec samples Referral to [facility] [place] [facility], Patient to follow-up Labs reviewed Of note, some information is being carried forward from prior records for informational purposes only and is being cited so that efficiency, safety and quality of the patient's care is not compromised This note was prepared using voice recognition software and direct typing Please excuse inadvertent reimbursement specialist or typing errors, or uncorrected word substitutions Although every attempt has been made by the provider to proofread this document, occasional misspellings and typographical errors may still be present Due to the previous pandemic, and the use of personal protective equipment (PPE) This may decrease voice recognition accuracy Inadvertent reimbursement specialist errors may occur 03/28/2024 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 I have given him Nurtec samples Referral to [place] [facility], Patient to follow-up Labs reviewed Of note, some information is being carried forward from prior records for informational purposes only and is being cited so that efficiency, safety and quality of the patient's care is not compromised This note was prepared using voice recognition software and direct typing Please excuse inadvertent reimbursement specialist or typing errors, or uncorrected word substitutions Although every attempt has been made by the provider to proofread this document, occasional misspellings and typographical errors may still be present Due to the previous pandemic, and the use of personal protective equipment (PPE) This may decrease voice recognition accuracy Inadvertent reimbursement specialist errors may occur 03/28/2024 Dorsalgia, unspecified (ICD-10 - M54.9) Acute Concerns/Problem List: 03/28/2024 Chronic conditions discussed. I have given him Nurtec samples Referral to [facility] [place] [facility], Patient to follow-up Labs reviewed Of note, some information is being carried forward from prior records for informational purposes only and is being cited so that efficiency, safety and quality of the patient's care is not compromised This note was prepared using voice recognition software and direct typing Please excuse inadvertent reimbursement specialist or typing errors, or uncorrected word substitutions Although every attempt has been made by the provider to proofread this document, occasional misspellings and typographical errors may still be present Due to the previous pandemic, and the use of personal protective equipment (PPE) This may decrease voice recognition accuracy Inadvertent reimbursement specialist errors may occur 03/28/2024 Herniated intervertebral disc of lumbar spine (ICD-10 - M51.26) Acute Concerns/Problem List: 03/28/2024 Chronic conditions discussed. I have given him Nurtec samples Referral to [place] [facility], Patient to follow-up Labs reviewed Of note, some information is being carried forward from prior records for informational purposes only and is being cited so that efficiency, safety and quality of the patient's care is not compromised This note was prepared using voice recognition software and direct typing Please excuse inadvertent reimbursement specialist or typing errors, or uncorrected word substitutions Although every attempt has been made by the provider to proofread this document, occasional misspellings and typographical errors may still be present Due to the previous pandemic, and the use of personal protective equipment (PPE) This may decrease voice recognition accuracy Inadvertent reimbursement specialist errors may occur 03/28/2024 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 I have given him Nurte samples Referral to [place] [facility], Patient to follow-up Labs reviewed Of note, some information is being carried forward from prior records for informational purposes only and is being cited so that efficiency, safety and quality of the patient's care is not compromised This note was prepared using voice recognition software and direct typing Please excuse inadvertent reimbursement specialist or typing errors, or uncorrected word substitutions Although every attempt has been made by the provider to proofread this document, occasional misspellings and typographical errors may still be present Due to the previous pandemic, and the use of personal protective equipment (PPE) This may decrease voice recognition accuracy Inadvertent reimbursement specialist errors may occur PLAN OF TREATMENT Medication [...] Details Provider Name:NIRMAL NORRIS, 07/26/2024 09:30:00 AM, [address] [place] [address], [phone], Progress Notes * ANTWON LANDTODOB:[birth year] (53 yo M)Acc No.[id number]:03/28/2024 Progress Notes Patient:??ANTWON LAND TO Provider:??NIRMAL NORRIS NP :1970?Age:53 Y?Sex:Poonam anna Date:03/28/2024 Address:[address] [place] [address] [place] [facility] [place] Subjective: * Chief Complaints: * ?1. Pt [...] migraines 3-4 times/month. ?He is now getting CHEMICAL EQUIPMENT REPAIRER services totaling 1 hour daily ?overwheling issue is pain mgt ?past medical history that includes hypertension, chronic migraines, ?chronic pain syndrome fibromyalgia, acid reflux and low back pain ?He has multiple psychiatric conditions which is managed by [facility] ?Chronic low back pain with some radicular [...] the right side ?we did refer to [facility] for further mgt* ?We did put him on gabapentin and Cymbalta ?MRI of the brain without in April 2022 ?No evidence of acute findings ?Some nonspecific white matter changes ?Chronic obstructive asthma, seeing transportation program director at [facility] ?using montelukast, advair good effect ?pain [...] meal Orally Once a day , Taking Ywwrbxxtuy-EFAZ-Nyoiystu 50-325-40 MG Capsule 1 capsule as needed [...] Chronic conditions discussed. I have given him [facility] samples Referral to [place] [facility], Patient to follow-up Labs reviewed Of note, some information is being carried forward from prior records for informational purposes only and is being cited so that efficiency, safety and quality of the patient's care is not compromised This note was prepared using voice recognition software and direct typing Please excuse inadvertent reimbursement specialist or typing errors, or uncorrected word substitutions Although every attempt has been made by the provider to proofread this document, occasional misspellings and typographical errors may still be present Due to the previous pandemic, and the use of personal protective equipment (PPE) This may decrease voice recognition accuracy Inadvertent reimbursement specialist errors may occur. Plan: * Treatment: 2.??Lumbar radiculopathy?? Refill traMADol HCl Tablet, 50 MG, 1 tablet as needed, Orally, twice a day, 10 days, 20 Tablet, Refills 0.? * Images: Billing Information: * Visit Code:?? 60910 Office Visit, Est Pt., Level 4. Modifiers: [...] migraines 3-4 times/month. He is now getting CHEMICAL EQUIPMENT REPAIRER services totaling 1 hour daily overwheling issue is pain mgt past medical history that includes hypertension, chronic migraines, chronic pain syndrome fibromyalgia, acid reflux and low back pain He has multiple psychiatric conditions which is managed by [facility] Chronic low back pain with some radicular [...] the right side we did refer to [facility] for further mgt* We did put him on gabapentin and Cymbalta MRI of the brain without in April 2022 No evidence of acute findings Some nonspecific white matter changes Chronic obstructive asthma, seeing transportation program director at [facility] using montelukast, advair good effect pain [...] colonoscopy screening 08/2020 Flu 2023, at pharmacy [facility]; no previous , to get at pharmacy [...]
--- OUTSIDE RECORDS SUMMARY | 2024-06-13 12:43 | XMS_ITS | Clinical Summary ---
Author Organization [facility] Address [address] [place] [address] Phone Care Team Providers Care Desktop Publisher Name Role Phone Awilda Maldonado DO Primary Care Provider [phone] Medical History Medical History Date Comments Asthma [...] 8:30 AM EST Office Visit Pulmonolgy - [place] [address] [facility] [address] [place] [phone] Aiyana Gale MD 175 [facility] [address] [place] [address] Health Maintenance Due Date Last Done Comments [...] patient's age to complete this topic Insurance [facility] Member Subscriber Plan / Payer (Ef fective 2018-Present) Name:Melanie Spragueto Relation to Subscriber:Self Name:Donavon Sprague Payer ID:[id number] Group ID:[id number] Type:Not on file Address: [place] [address] [address] [id number] Care Teams Desktop Publisher Relationship Specialty Start Date End Date Awilda Maldonado DO [address] [place], [place] PCP - General Family Medicine 07/21/19
== END 2024-06-13 11:42 | disposition home or self-care (01) ==
LOC: HO.PMCPRC 11:00
PROVIDERS: PCP Internal Medicine; Visit Provider Anesthesiology
DX: M54.16 Radiculopathy, lumbar region (principal)
CPT/HCPCS: 64483

== ENCOUNTER 2024-07-05 11:16 | Outpatient (AMB) | payer OTHER, SELFPAY ==
[2024-07-05 11:21] VITALS: BP 159/90; PULSE 76; RESP 18; O2SAT 99
--- NOTE | 2024-07-05 11:21 | A.OFFVIS_ITS ---
Vital Signs 3 07/05/24 11:21 Weight 166 lb BP 159/90 H Blood Pressure Location Rt brachial Position Sitting Respiration 18 Pulse 76 Pulse Source Pulse Oximeter Pulse Oximetry (%) 99 Oxygen Delivery Method Room Air Intake Visit Reasons: RIGHT L4, L5 TFESI Medical Review Coordinator Required: Yes Medical Review Coordinator Language: Resident Athletic Trainer Services: Medical Review Coordinator Present Medical Review Coordinator Name: fuad Allergies No Known Allergies Allergy (Verified 07/05/24 11:23) HPI Comments Details: The patient is a 54-year-old male presenting with chronic lower back pain and associated right lumbar radiculopathy. One month ago, underwent right L4-5 transforaminal epidural steroid injection, which reduced his pain from a 9 to a 6 on a scale of 10. However, he continues to experience some right leg pain with only slight improvement. The patient has not yet seen a neurosurgeon. The patient is concerned about surgical interventions, particularly involving spinal screws, which were previously suggested by another physician and caused him distress. An MRI was performed at [facility], and arrangements are being made to ensure these images are available for the neurosurgical consultation. - Onset: Chronic - Quality: Lower back pain with radiation down the leg - Location: Lumbar region with radiculopathy - Exacerbating Factors: Previously severe before steroid injection - Relieving Factors: Steroid injection reduced pain from 9 to 6 - Interference: Continues to impact daily activities due to persistent leg pain - Affect: Patient expressed fear and concern regarding surgical options discussed by other doctors - Analgesia: Previous steroid injection reduced pain; current pain level at 6/10 - Adverse Effects: No specific medication adverse effects discussed - Activities of Daily Living: Persistent leg pain still impacts daily function - Aberrant Drug Related Behaviors: None reported [facility] Medical History (Updated 04/28/24 @ 09:21 by Melanie Ramires, BLAST FURNACE BLOWER, BROADCAST OPERATIONS TECHNICIAN) Migraines Hypertension GERD (gastroesophageal reflux disease) Hypothyroid Review of Systems Const Details: - Musculoskeletal: Reports chronic back pain; Denies complete relief from previous interventions - Neurological: Reports persistent leg pain with minimal improvement Physical Exam Vital Signs: Last Vital Signs Pulse 76 07/05/24 11:21 Resp 18 07/05/24 11:21 BP 159/90 H 07/05/24 11:21 Pulse Ox 99 07/05/24 11:21 Oxygen Delivery Method Room Air 07/05/24 11:21 General: awake, alert, oriented. Answers questions appropriately. Fully engaged in examination. Skin: warm, dry, intact HEENT: Normocephalic. Hearing intact. Cardiac: External chest normal in appearance. Respiratory: No cough, audible wheezing or stridor. Abdomen: without gross distension. MS: No obvious swelling or deformities. Able to transition from sit to stand unassisted. Ambulates with bilaterally normal heel strike and toe off Neurological: Oriented to person, place, time and situation. Thought process intact. Psychiatric: Appropriate mood and affect. Good judgment and insight. Results Reviewed Results Reviewed: Assessment & Plan Assessment & Plan (1) Right lumbar radiculopathy: Code(s): M54.16 - Radiculopathy, lumbar region Category: Medical (2) Lumbar spondylosis: Code(s): M47.816 - Spondylosis without myelopathy or radiculopathy, lumbar region Category: Medical Plan The patient will be referred to a neurosurgeon for further evaluation of significant foraminal narrowing, as previous conservative management with a steroid injection provided only partial relief. The necessity of having the MRI images from [facility] available for this consultation was emphasized. Coordination with the spine center will be pursued to determine further intervention needs, and pain management strategies will be revisited based on these recommendations. I discussed with the patient the significant foramina narrowing observed on his MRI and the limited relief provided by the recent steroid injection. I emphasized the importance of a neurosurgical consultation to explore potential surgical options, particularly minimally invasive procedures that could alleviate nerve compression without extensive hardware given his concerns. The patient expressed concern about the prospect of surgery, particularly due to previous discussions about spinal screws, but was reassured about the advancements in minimally invasive techniques. I advised him to ensure the MRI images are available for his neurosurgical appointment. We also covered the potential risks and benefits of the various surgical interventions, and I assured him that the goal is to minimize invasiveness and recovery time. The patient was informed that the spine center would be in contact to schedule his appointment, and further pain management strategies would be considered following the neurosurgical recommendations. Patient was informed and verbally consented to the use of an ambient scribe for clinic note documentation during this visit. Orders: Referrals 2 Neuro Spine Referral M54.16 - Radiculopathy, lumbar region Patient Instructions: - Ensure MRI images from [facility] are available for your neurosurgical appointment. - Attend the scheduled consultation with the spine center. - Discuss any concerns about potential surgical interventions with the neurosurgeon. - Follow up as directed after the neurosurgical evaluation for further pain management planning. - Contact the clinic if you have any questions or concerns before your appointment. Coding Level of Care Code Est Pt Level 3 (62608) Complex EM visit Add On G2211 Diagnoses Right lumbar radiculopathy M54.16 Lumbar spondylosis M47.816
--- OUTSIDE RECORDS SUMMARY | 2024-07-05 12:17 | XMS_ITS | Clinical Summary ---
Author Organization [facility] Address [address] [place] [address] Care Team Providers Care Cdl Bulk Driver Name Role Phone Awilda Maldonado DO Primary Care Provider [phone] Social History Tobacco Use Types Packs/Day Years [...] age to complete this topic Care Teams Cdl Bulk Driver Relationship Specialty Start Date End Date Awilda Maldonado DO [address] [address] PCP - General Family Medicine 07/21/19
== END 2024-07-05 11:41 | disposition home or self-care (01) ==
LOC: HO.PMC 11:16
PROVIDERS: PCP Internal Medicine; Visit Provider Registered Nurse Emergency
DX: M54.16 Radiculopathy, lumbar region (principal); M47.816 Spondylosis without myelopathy or radiculopathy, lumbar region
CPT/HCPCS: 99213; G2211

== ENCOUNTER → 2024-07-05 11:16 | Outpatient (BNVA) | payer OTHER, SELFPAY | PROVIDERS: PCP Internal Medicine; Visit Provider Registered Nurse Emergency | DX: M47.26 Other spondylosis with radiculopathy, lumbar region (principal) | CPT/HCPCS: 99212 ==

== ENCOUNTER → 2024-07-10 12:49 | Outpatient (BNVA) | payer OTHER, SELFPAY | PROVIDERS: PCP Internal Medicine; Referring Provider Registered Nurse Emergency; Visit Provider Physician Assistant ==

== ENCOUNTER 2024-07-12 12:39 | Outpatient (AMB) | payer OTHER, SELFPAY ==
--- NOTE | 2024-07-12 13:03 | HO.SPINEOV ---
Intake Visit Reasons: LBP Intake Note: Mr. Fabian Schmitz is here today c/o low back pain. Bicycle Inspector Required: Yes Bicycle Inspector Services: Bicycle Inspector Present Bicycle Inspector Name: Yadira Calloway LM Allergies No Known Allergies Allergy (Verified 07/12/24 13:04) Assessment & Plan Assessment & Plan (1) Right lumbar radiculopathy: Code(s): M54.16 - Radiculopathy, lumbar region Category: Medical Plan Dear ASHLEE Ramires, Thank you for referring Donavon to our office today. He is a pleasant 54-year-old male who comes in today for evaluation of low back pain and shooting pain down his right lower extremity. He states that this pain 1st began about 5 years ago when he fell down a large staircase at work. He reports being evaluated a year or so ago by a surgeons office who offered him lumbar fusion for this issue. He states that he began experiencing fairly severe low back pain and shooting pains down his right leg directly after this incident. When describing the pain that shoots down his right leg he states that it starts in his low back shoots down his anterior / lateral right thigh over the right knee and into the right anterior tibialis. He states the pain has became significantly worse within the last 1 year, and is now accompanied by cramping/electric shock feeling. He reports that with activity and walking his pain significantly worsens. He is able to obtain some pain relief when lying flat on his back. He rates his daily pain is a 9/10. He states that he has attempted physical therapy, cortisone injections (most recently a L4-5 TFESI with [facility] pain management), acupuncture, and a plethora of gzyz-sjk-[id number] medications in an effort to help mitigate his symptoms. He is currently taking prescribed gabapentin and tramadol to help alleviate some of his pain. PMH: Asthma, depression, vitamin-D deficiency, high blood pressure, HSV, GERD, migraines. Social hx: The patient does not smoke, reports no substance use. Medications: See demandmart list. Allergies: NKDA. Physical exam: The patient has 5/5 strength in his upper and lower extremities, however does elicit pain to right-sided iliopsoas testing. He ambulates with a slightly antalgic gait favoring the left side and utilizing a cane to brace himself. He has no significant sensational deficits on exam. He is able to get up onto the examination table without much issue. (+) right-sided straight leg raise. (-) left-sided straight leg raise. (-) Hodgson's. (-) Clonus. Imaging review: MRI of the lumbar spine completed at [facility] on 05/28/2023 shows a right-sided disc herniation at L4-5 causing severe right-sided foraminal stenosis at this level. There is also a posterior disc bulge at L5-S1 that is causing mild-moderate bilateral foraminal stenosis. Impression: Donavon is a pleasant 54-year-old male who comes in today for evaluation of low back pain and shooting pain into his right lower extremity. He reports this has been ongoing for the past 5 years, but does report that it has significantly worsened over the course of the last 1 year. It sounds like when he fell down the staircase at work 5 years ago he herniated disc in his back, which never resorbed. The disc herniation seen on the right L4-5 matches the dermatomal distribution of his pain. He did get some pain relief from the right-sided transforaminal epidural steroid injection that he had at L4-5 with our colleagues in pain management, however his pain quickly returned after the injection. I believe that the patient is a great candidate for a right-sided lumbar microdiskectomy at L4-5, however his MRI imaging is from May of 2023, in his symptoms have significantly worsened over the course of the last year per his report. Therefore, I would like to obtain a repeat lumbar MRI to ensure that his disc herniation has not worsened, and also to make sure that the disc bulge seen at L5-S1 has not worsened. We extensively discussed minimally invasive microdiskectomy surgery during this office visit utilizing the spine models we have. I answered all questions related to the proposed surgery to the best of my ability. I will review his MRI imaging with the attending neurosurgeon Dr. Yañez when it is complete, and we will call and update the patient thereafter. Thank you for allowing us to care for your patient. The total time spent with this visit with this patient was 45 minutes reviewing history, physical exam, MRI imaging review, and implementation of treatment plan or further diagnostic testing Mejia Yañez MD,PhD [facility] Coding Level of Care Code New Pt Level 4 (60002) Diagnoses Right lumbar radiculopathy M54.16
--- OUTSIDE RECORDS SUMMARY | 2024-07-12 13:09 | XMS_ITS | Clinical Summary ---
Author Organization [facility] Address [address] [place] [address] Care Team Providers Care Technical Trainer Name Role Phone Awilda Maldonado DO Primary Care Provider [phone] Social History Tobacco Use Types Packs/Day Years [...] Vaccine (1 of 2) 2018 Influenza Vaccine (Season Ended) 2024 Pneumococcal Vaccine Aged Out No long er eligible based on patient's age to complete this topic RSV Ped < 20 months Aged Out No longe r eligible based on patient's age to complete this topic Care Teams Technical Trainer Relationship Specialty Start Date End Date Awilda Maldonado DO [address] [address] PCP - General Family Medicine 07/21/19
== END 2024-07-12 13:45 | disposition home or self-care (01) ==
LOC: HO.HNS 12:40
PROVIDERS: PCP Internal Medicine; Referring Provider Registered Nurse Emergency; Visit Provider Physician Assistant
DX: M54.16 Radiculopathy, lumbar region (principal)
CPT/HCPCS: 99204

== ENCOUNTER → 2024-07-12 12:39 | Outpatient (BNVA) | payer OTHER, SELFPAY | PROVIDERS: PCP Internal Medicine; Referring Provider Registered Nurse Emergency; Visit Provider Physician Assistant | DX: M54.16 Radiculopathy, lumbar region (principal) | CPT/HCPCS: 99202 ==

== ENCOUNTER 2024-07-21 19:30 | Outpatient (REF) | payer OTHER, SELFPAY ==
--- NOTE | ~2024-07-21 | MR_ITS ---
CLINICAL HISTORY: M54.16 - Radiculopathy, lumbar region MR lumbar spine without gadolinium Comparison: None Findings: Normal alignment. Moderate multilevel spondylosis with degenerative disc desiccation, disc height loss, posterior disc bulges, ligamentum flavum thickening and facet arthropathy. At L1-L2, no significant spinal canal narrowing and mild bilateral neural foraminal narrowing. At L2-L3, circumferential disc bulge causing moderate spinal canal narrowing and mild bilateral neural foraminal narrowing. (Small linear T2 hyperdensity noted within the posterior disc bulge may represent an annular tear. At L3-L4, mild spinal canal narrowing and moderate bilateral neural foraminal narrowing causing abutment of the exiting bilateral L3 nerve roots. At L4-L5, mild spinal canal narrowing. Moderate right and mild left neural foraminal narrowing. Abutment of the exiting right L4 nerve root. L5-S1 mild spinal canal narrowing and mild bilateral neural foraminal narrowing. Cauda equina and conus medullaris within normal limits. Paraspinous musculature intact. IMPRESSION: No acute findings. Moderate multilevel spondylosis as detailed in the findings. Small linear T2 hyperdensity noted within the posterior disc bulge at L2-L3,may represent a small annular tear. This document has been electronically signed by: Jeremías Bravo MD on 07/24/2024 20:29:37
== END 2024-07-21 19:31 | disposition home or self-care (01) ==
LOC: HO.MRI 19:30
PROVIDERS: Visit Provider Physician Assistant
DX: M54.16 Radiculopathy, lumbar region (principal)
CPT/HCPCS: 72148

== ENCOUNTER → 2024-07-21 19:31 | Outpatient (BNV) | payer OTHER, SELFPAY | PROVIDERS: Visit Provider Student in an Organized Health Care Education/Training Program | DX: M47.26 Other spondylosis with radiculopathy, lumbar region (principal) | CPT/HCPCS: 72148 ==

== ENCOUNTER 2024-07-27 15:04 | Outpatient (REF) | payer OTHER, SELFPAY ==
--- OUTSIDE RECORDS SUMMARY | 2024-07-26 09:55 | XMS_ITS | Encounter Summary ---
Author Organization [email or web address] Address [address] [place] [address] Care Team Providers Care Rn Clinical Quality Name Role Phone Awilda Maldonado Primary Care Provider [phone] Encounter Details Date Type Department Care Team (Latest Contact Info) Description 07/26/2024 9:55 AM EDT - 07/26/2024 11:59 PM EDT Hospital Encounter [facility] Xray [address] [place] [phone] Pain in left shoulder Discharge Disposition: Home [...] Description 12/11/2024 8:30 AM EST Office Visit [facility] 175 [facility] [address] [place] [phone] Aiyana Gale MD [address] [address] documented as of this encounter Procedures Procedure [...] 07/26/2024 10:10 AM EDT Normal examination. Code 44586 -------- FINAL REPORT -------- Dictated By: Ren Fontenot Dictated Date: 07/26/2024 10:10 ET Assigned Physician: Ren Fontenot Reviewed and Electronically Signed By: Ren Fontenot Signed Date: 07/26/2024 10:10 ET Workstation ID: [id number] Transcribed By: Self Edit Transcribed Date: 07/26/2024 [...] tissue abnormality isseen. IMPRESSION: Normal examination. Code 66784 -------- FINAL REPORT -------- Dictated By: Ren Fontenot Dictated Date: 07/26/2024 10:10 ET Assigned Physician: Ren Fontenot Reviewed and Electronically Signed By: Ren Fontenot Signed Date: 07/26/2024 10:10 ET Workstation ID: [id number] Transcribed By: Self Edit Transcribed Date: 07/26/2024 10:10 ET us Margy Keating NP IMG XR PROCEDURES Final Resul t documented in this encounter Visit Diagnoses Diagnosis Pain in left shoulder documented in this encounter Care Teams Rn Clinical Quality Relationship Specialty Start Date End Date Awilda Maldonado, [address] [place], [place] PCP - General Family Medicine 07/21/19 documented as of this encounter
== END 2024-07-27 15:05 | disposition home or self-care (01) ==
LOC: HO.HOSX 15:04
PROVIDERS: Visit Provider Physician Assistant
DX: Z13.89 Encounter for screening for other disorder (principal)

== ENCOUNTER 2024-07-31 14:28 | Outpatient (AMB) | payer OTHER, SELFPAY ==
--- NOTE | 2024-07-31 14:31 | A.SPINEOV_ITS ---
Intake Visit Reasons: MRI f/up with xrays Intake Note: Mr. Fabian Schmitz is here today to F/u on the results to his MRI and xrays. Geothermal Sheet Metal Worker Required: Yes Geothermal Sheet Metal Worker Services: Geothermal Sheet Metal Worker Present Geothermal Sheet Metal Worker Name: Yadira Calloway LM Information Interpreted: non-clinical & clinical Allergies No Known Allergies Allergy (Verified 07/12/24 13:04) Assessment & Plan Assessment & Plan (1) Right lumbar radiculopathy: Code(s): M54.16 - Radiculopathy, lumbar region Category: Medical Plan Donavon is a pleasant 54-year-old male who comes in today for a follow-up visit after having repeat lumbar MRI completed to evaluate for compression at L4-5. His previous MRI was more than 1-year-old. I did review his new MRI imaging with the attending neurosurgeon Dr. Yañez who is willing to offer the patient a right-sided L4 foraminotomy. I did have the patient obtain flexion/extension x-rays prior to this visit at the request of Dr. Yañez. I do not see any evidence of worsening lithesis with flexion / extension. We extensively discussed right L4 foraminotomy during this visit today utilizing the spine models in office. I answered all the patient's questions to the best of my ability he had regarding the proposed surgical procedure. Donavon would like to proceed with surgery. The patient was given risk and benefits of foraminotomy surgery including but not limited to infection, hematoma, nerve injury, durotomy, weakness, bowel/bladder injury, persistent pain. We also discussed the option to continue with conservative treatment and patient wishes to proceed with surgery. They are aware they should stop NSAIDs 7 days prior to surgery. All questions were answered to the best of our ability. If there is anything about this patients medical history that we have overlooked or concerns you have about us proceeding with surgery we would appreciate any input you can offer. Mejia Yañez MD,PhD [facility] Coding Level of Care Code Global (89491) Diagnoses Right lumbar radiculopathy M54.16
== END 2024-07-31 15:16 | disposition home or self-care (01) ==
LOC: HO.HNS 14:29
PROVIDERS: Visit Provider Physician Assistant
DX: M54.16 Radiculopathy, lumbar region (principal)
CPT/HCPCS: 99214

== ENCOUNTER → 2024-07-31 14:35 | Outpatient (BNV) | payer OTHER, SELFPAY | PROVIDERS: Visit Provider Radiology Diagnostic Radiology | DX: M47.816 Spondylosis without myelopathy or radiculopathy, lumbar region (principal) | CPT/HCPCS: 72110 ==

== ENCOUNTER 2024-07-31 15:04 | Outpatient (REF) | payer OTHER, SELFPAY ==
--- OUTSIDE RECORDS SUMMARY | 2024-07-26 09:55 | XMS_ITS | Encounter Summary ---
Author Organization [employer] Address [address] [place] [address] Care Team Providers Care Director Of Sustainable Design Name Role Phone Awilda Maldonado Primary Care Provider [phone] Encounter Details Date Type Department Care Team (Latest Contact Info) Description 07/26/2024 9:55 AM EDT - 07/26/2024 11:59 PM EDT Hospital Encounter [facility] Xray [address] [place] [phone] Pain in left shoulder Discharge Disposition: Home or Self Care Social History Tobacco Use Types Packs/Day Years Used Date Smoking Tobacco: Never Smokeless Tobacco: Never Sex and Gender Information Value Date Recorded Sex Assigned at Not on file Legal Sex Male 7:05 AM EST Gender Identity Not on file Sexual Orientation Not on file documented as of this encounter Discharge Disposition Disposition Code Departure Means Destination Home or Self Care documented in this encounter Plan of Treatment Upcoming Encounters Date Type Department Care Team (Late st Contact Info) Description 12/11/2024 8:30 AM EST Office Visit [facility] 175 [facility] [address] [place] [phone] Aiyana Gale MD [address] [address] documented as of this encounter Procedures Procedure Name Priority Date/Time Associated Diagnosis Comments XR SHOULDER 2+ VIEWS LEFT Routine 07/26/2024 10:07 AM EDT Pain in left shoulder documented in this encounter Results * XR Shoulder 2+ Views Left (07/26/2024 10:07 AM EDT) Anatomical Region Laterality Modality Upper Extremities, Shoulder Left Radi ographic Imaging 07/26/2024 10:1 0 AM EDT Impressions 07/26/2024 10:10 AM EDT Normal examination. Code 01197 -------- FINAL REPORT -------- Dictated By: Ren Fontenot Dictated Date: 07/26/2024 10:10 ET Assigned Physician: Ren Fontenot Reviewed and Electronically Signed By: Ren Fontenot Signed Date: 07/26/2024 10:10 ET Workstation ID: [id number] Transcribed By: Self Edit Transcribed Date: 07/26/2024 10:10 ET Narrative 07/26/2024 10:10 AM EDT HISTORY: The patient is a 54-year-old male with left shoulder pain. No history of trauma is provided. FINDINGS: AP, left posterior oblique, and transscapular views of the left shoulder are obtained. The study demonstrates no fracture, dislocation, arthritic change, or other bony abnormality. No soft tissue abnormality is seen. Procedure Note Ren Fontenot MD - 07/26/2024 HISTORY: The patient is a 54-year-old male with left shoulder pain. Nohistory of trauma is provided. FINDINGS: AP, left posterior oblique, and transscapular views of the leftshoulder are obtained. The study demonstrates no fracture, dislocation,arthritic change, or other bony abnormality. No soft tissue abnormality isseen. IMPRESSION: Normal examination. Code 12462 -------- FINAL REPORT -------- Dictated By: Ren Fontenot Dictated Date: 07/26/2024 10:10 ET Assigned Physician: Ren Fontenot Reviewed and Electronically Signed By: Ren Fontenot Signed Date: 07/26/2024 10:10 ET Workstation ID: [id number] Transcribed By: Self Edit Transcribed Date: 07/26/2024 10:10 ET us Margy Keating NP IMG XR PROCEDURES Final Resul t documented in this encounter Visit Diagnoses Diagnosis Pain in left shoulder documented in this encounter Care Teams Director Of Sustainable Design Relationship Specialty Start Date End Date Awilda Maldonado, [address] [place], [place] PCP - General Family Medicine 07/21/19 documented as of this encounter
--- NOTE | ~2024-07-31 | XR_ITS ---
EXAMINATION: XR LUMBOSACRAL SPINE CLINICAL INFORMATION: M54.16 - Radiculopathy, lumbar region COMPARISON: MR lumbar 07/21/2024. TECHNIQUE: 4 views of the lumbar spine, inclusive of flexion and extension views, were obtained. FINDINGS: There is no scoliosis. There is a normal lumbar lordosis. There is no fracture, compression deformity, or suspicious bone lesion. There is a 3 mm degenerative appearing retrolisthesis of L1 on L2, and L2 on L3. Alignment is otherwise anatomic. No change in alignment or pathologic motion noted on flexion and extension views. Mild to moderate disc degeneration noted diffusely, most significant at L2-3. Facets are normally aligned. There are mild degenerative facet changes spanning L4-S1. The sacrum is intact. The SI joints appear normal. There is no discrete soft tissue abnormality. XR/XR lumbar spine 4V min IMPRESSION: 1. No acute bony abnormalities of the lumbar spine. 2. Mild to moderate spondylosis, most significant at L1-2 and L2-3. 3. No evidence of instability on flexion and extension views. Electronically signed by: Hero Campuzano MD 07/31/2024 03:34 PM EDT
== END 2024-07-31 15:05 | disposition home or self-care (01) ==
LOC: HO.HOSX 15:04
PROVIDERS: Visit Provider Physician Assistant
DX: M54.16 Radiculopathy, lumbar region (principal)
CPT/HCPCS: 72110; 99212

== ENCOUNTER 2024-09-07 08:22 | Day surgery (SDC) | payer OTHER, SELFPAY ==
--- OUTSIDE RECORDS SUMMARY | 2024-08-22 15:43 | XMS_ITS | Clinical Summary ---
Author Organization [facility] Address [address] [place] [address] Care Team Providers Care Blow Machine Tender Starch Spraying Name Role Phone Awilda Maldonado DO Primary Care Provider [phone] Social History Tobacco Use Types Packs/Day Years [...] (1 of 2) 2018 Influenza Vaccine (#1) 2024 Pneumococcal Vaccine Aged Out No long er eligible based on patient's age to complete this topic RSV Ped < 20 months Aged Out No longe r eligible based on patient's age to complete this topic Care Teams Blow Machine Tender Starch Spraying Relationship Specialty Start Date End Date Awilda Maldonado DO [address] [phone] PCP - General Family Medicine 07/21/19
--- OUTSIDE RECORDS SUMMARY | 2024-08-22 15:44 | XMS_ITS | Clinical Summary ---
Author Organization [facility] Address [address] [place] [address] Phone Care Team Providers Care Warehouse Distribution Specialist Name Role Phone Bladimir Kohler MD Primary Care Provider [phone] Encounters Date Type Department Care Team Description 07/26/2024 9:55 AM EDT - 07/26/2024 11:59 PM EDT Hospital Encounter [facility] Xray [address] [place] [address] Pain in left shoulder Discharge Disposition: Home or Self Care from Last 3 Months Medical History Medical History Date Comments Asthma [...] Care Team (Late st Contact Info) Description 08/30/2024 2:00 PM EDT Consult Orthopedic Surgery - [place] 175 [facility] [address] [place] [phone] Estevan Hylton MD 175 [facility] [address] [place] [address] 12/11/2024 8:30 AM EST Office Visit Pulmonolgy - [place] 175 [facility] [address] [place] [phone] Aiyana Gale MD 175 [facility] [address] [place] [address] Health Maintenance Due Date Last Done Comments Diabetes: Annual GFR (Glomerular Filtration Rate) 1968 Diabetes: Annual Foot Exam 1978 Diabetes: Annual Retina Eye Exam 1978 Hepatitis B Vaccines (1 of 3 - 19+ 3-dose series) 04/20/1987 Pneumococcal Vaccine: 50+ Years (1 of 2 - PCV) 04/20/1987 Zoster Vaccines (1 of 2) 2018 Cholesterol Screening (Lipid Panel) 01/17/2022 Colorectal Cancer Screening: Colonoscopy 01/17/2022 Depression Screening 01/17/2022 HIV Screening 01/17/2022 Hepatitis C Screening 01/17/2022 Social Influencers of Health Screening 01/17/2022 COVID-19 Vaccine ( season) 2023 10/15/2021, 12/13/2020, 05/18/2020, Additional history exists Hypertension/CHF/CAD Annual BMP Blood Test 05/16/2024 Diabetes: Annual Urine Albumin-Creatinine Ratio (uACR) 07/13/2024 Diabetes: Blood Sugar Control Test (HGBA1C) 07/13/2024 Influenza Vaccine (#1) 2024 , 11/20/2020, 03/11/2020 DTaP,Tdap,and Td Vaccines (2 - [...] on patient's age to complete this topic Procedures Procedure Name Priority Date/Time Associated Diagnosis Comments XR SHOULDER 2+ VIEWS LEFT Routine 07/26/2024 10:07 AM EDT Pain in left shoulder from Last 3 Months Results * XR Shoulder 2+ Views Left (07/26/2024 10:07 AM EDT) Anatomical Region Laterality Modality Upper Extremities, Shoulder Left Radi ographic Imaging 07/26/2024 10:1 0 AM EDT Impressions 07/26/2024 10:10 AM EDT Normal examination. Code 01880 -------- FINAL REPORT -------- Dictated By: Ren Fontenot Dictated Date: 07/26/2024 10:10 ET Assigned Physician: Ren Fontenot Reviewed and Electronically Signed By: Ren Fontenot Signed Date: 07/26/2024 10:10 ET Workstation ID: [id number] Transcribed By: Self Edit Transcribed Date: 07/26/2024 [...] tissue abnormality isseen. IMPRESSION: Normal examination. Code 31606 -------- FINAL REPORT -------- Dictated By: Ren Fontenot Dictated Date: 07/26/2024 10:10 ET Assigned Physician: Ren Fontenot Reviewed and Electronically Signed By: Ren Fontenot Signed Date: 07/26/2024 10:10 ET Workstation ID: [id number] Transcribed By: Self Edit Transcribed Date: 07/26/2024 10:10 ET us Margy Keating [employer] IMG XR PROCEDURES Final Resul t from Last 3 Months Insurance [facility] Member Subscriber Plan / Payer (Ef fective 2018-Present) Name:DONAVON MELISSA Relation to Subscriber:Self Name:Donavon Sprague Payer ID:[id number] Group ID:[id number] Type:Not on file Address: [place] [address] [address] [address] Care Teams Warehouse Distribution Specialist Relationship Specialty Start Date End Date Bladimir Kohler MD [address] [place] [phone] PCP - General Internal Medicine 08/01/24
--- OUTSIDE RECORDS SUMMARY | 2024-08-22 15:44 | XMS_ITS | Patient Health Record ---
Author Organization [facility] [address] [address] Address [address] [place] [address] Care Team Providers Care Bottom Pounder [employer] Name Role Phone LENCHO FAITH Unavailable [phone] NIRMAL NORRIS Unavailable [phone] Allergies No Known Allergies Results Component Value Reference Range Notes XR SHOULDER 2+ VIEWS LEFT Reviewed date:07/26/2024 10:59:17 AM Interpretation: Performing Lab: Notes/Report: Note See Note [facility], a member of [facility] Patient Name: ANTHONY REVELES Date of : 1970 Reason for Exam: OTHER Exam Date: 07/26/2024 [id number] EST Report Status: Final Ordering Provider: NIRMAL NORRIS PCP: TEMI SORIANO HISTORY: The patient is a 54-year-old male with left shoulder pain. No history of trauma is provided. FINDINGS: AP, left posterior oblique, and transscapular views of the left shoulder are obtained. The study demonstrates no fracture, dislocation, arthritic change, or other bony abnormality. No soft tissue abnormality is seen. IMPRESSION: Normal examination. Code 61525 -------- FINAL REPOR T -------- Dictated By: Ren Fontenot Dictated Date: 07/26/2024 10:10 ET Assigned Physician: Ren Fontenot Reviewed and Electronically Signed By: Ren Fontenot Signed Date: 10:10 ET Workstation ID: [id number] Transcribed By: Self Edit Transcribed Date: 07/26/2024 10:10 ET FREE T4 CASCADE Reviewed date:12/06/2023 10:57:31 AM Interpretation: Performing Lab: Notes/Report: FREE T4 CASCADE 1.19 0.70-1.80 ng/dL Note [employer], [place] [address] [employer] - Nathaly Coe MD UA WITH CULTURE IF INDICATED Reviewed date:12/06/2023 10:28:07 AM Interpretation: Performing Lab: Notes/Report: Original Ordering Provider: NIRMAL NORRIS NP [employer], a member of [address] [address] [employer] - Nathaly Coe MD GLUCOSE, (UA) NEGATIVE NEGATIVE mg/dL BILIRUBIN, URINE NEGATIVE NEGATIVE KETONE, URINE NEGATIVE NEGATIVE mg/dL SPECIFIC GRAVITY, URINE 1.023 1.003-1.030 BLOOD, URINE NEGATIVE NEGATIVE PH, URINE 5.5 5.0-8.0 PROTEIN, URINE NEGATIVE <= TRACE mg/dl UROBILINOGEN, URINE 0.2 0.2-1.0 E.U./dL NITRITE, URINE NEGATIVE NEGATIVE LEUKOCYTE ESTERASE, URINE NEGATIVE NEGATIVE TSH CASCADE Reviewed date:12/06/2023 10:57:31 AM Interpretation: Performing Lab: Notes/Report: TSH CASCADE 4.04 0.40-4.00 uIU/ml VITAMIN D, 25-HYDROXY Reviewed date:12/06/2023 10:57:31 AM Interpretation: Performing Lab: Notes/Report: VITAMIN D, 25-HYDROXY 19 30-80 ng/mL LIPID PROFILE Reviewed date:12/06/2023 10:57:31 AM Interpretation: Performing Lab: Notes/Report: CHOLESTEROL 218 0-200 mg/dL TRIGLYCERIDES 71 0-150 mg/dL HDL CHOLESTEROL 69 >40 mg/dL LDL CALCULATED 135 0-100 mg/dL TC-HDLC RATIO 3.2 0-4.4 mg/dL CBC WITH AUTO DIFF Reviewed date:12/06/2023 10:12:19 AM Interpretation: Performing Lab: Notes/Report: Original Ordering Provider: NIRMAL NORRIS NP [employer], a member of [address] [address] [employer] - Nathaly Coe MD WBC 6.5 4.8-10.8 x10-3/uL RBC 4.8 4.5-5.5 [...] x10-3/uL IMMATURE GRANULOCYTES # 0.01 0-0.03 x10-3/uL COMPREHENSIVE METABOLIC PANE L Reviewed date:12/06/2023 10:57:31 AM Interpretation: Performing Lab: Notes/Report: Note Original Orderi ng Provider: NIRMAL NORRIS WHARF HELPER GLUCOSE 94 70-100 mg/dL Reference range applicable [...] 10-60 U/L ALK PHOS 65 42-121 U/L GLYCOHEMOGLOBIN PROFILE Reviewed date:12/07/2023 07:58:10 AM Interpretation: Performing Lab: Notes/Report: Fiber Picker - Nathaly Coe MD [address] [place] [id number] [employer], a member of [facility] Original Ordering Provider: NIRMAL NORRIS WHARF HELPER GLYCATED HEMOGLOBIN A1C 5.4 <6.5 % ESTIMATED AVERAGE GLUCOSE 108 Reason For Referral Reason [facility] Diagnosis 1 Rectal pain (K62.89) Referral Organization [facility] [address] Referring Provider First Name NIRMAL Referring Provider Last Name JR Referring Provider Speciality Internal M edicine Referred Provider Specialty Colorectal S urgery General Notes RUDDY WYATT 08/23 09:30:33 AM > faxed referral to [facility] & gave pt phone # for appt p: [phone] f: [phone], RUDDY WYATT 09/15/2023 04:00:26 PM > dr Orosco [facility] in February [facility] 11:17:24 AM > faxed form to [facility] with office notes, Helga Monroe 10/07/2023 09:49:30 AM > The office confirmed receipt of referral. They will be calling the patient soon Clinical Notes Eve Maddox 10/07 01:51:44 PM >, recevied fax from [facility] attempted to contact patient twice. a VM and texts have been left. thankyou for your referral., called pt and LVM letting him know if he is still interested in this referral to call [facility] colorectal. Referral Priority Routine Reason [facility] Diagnosis 1 Lumbar radiculopathy (M54.16) Referral Organization [facility] [address] Referring Provider First Name LENCHO Referring Provider Last Name VIANNEY Referring Provider Speciality Internal M edicine Referred Provider Specialty Pain Medicin e General Notes Alize Guzman 11/30/2023 10:30:37 AM > Referral with attachment faxed, pt given info to call and schedule visit. [facility]. p: [phone] f: [phone] Clinical Notes Helga Monroe 01:35:30 PM > Scheduled for 12/08 at 11 am. Pt is aware Referral Priority Routine Reason [facility] Diagnosis 1 Pain, joint, shoulde r, left (M25.512) Referral Organization [facility] [address] Referring Provider First Name LENCHO Referring Provider Last Name VIANNEY Referring Provider Speciality Internal M edicine Referred Provider Specialty Orthopedic S urgery General Notes Elsa Sheehan 08:39:21 AM > Pt given phone [phone] referral faxed to [phone] Referral Priority Routine Medications Medication SIG (Take, Route, Frequency, Duration) Notes Start Date End Date Status Trelegy Ellipta 200-62.5-25 MCG/ACT 1 puff Inhalation Once a day; Duration: 30 days 11/24/2022 Active Omeprazole 20 MG 1 capsule 30 minutes before morning meal Orally Once a day; Duration: 90 days Active Lisinopril 20 MG TAKE 1 TABLET BY MOUTH EVERY DAY Orally Once a day; Duration: 90 days Active valACYclovir HCl 1 GM 1 tablet Orally th ree times a day; Duration: 10 day(s) 04/13/2022 Active Levothyroxine Sodium 25 MCG 1 tablet in the morning on an empty stomach Orally Once a day; Duration: 90 days Active traMADol HCl 50 MG 1 tablet as needed Orally twice a day; Duration: 10 days Active hydroCHLOROthiazide 25 MG 1 tablet in e morning Orally Once a day; Duration: 90 days Active Albuterol Sulfate HFA 108 (9 0 Base) MCG/ACT 1 puff as needed shortness of breath/wheezing Inhalation every 4 hrs; Duration: 30 days 11/24/2022 Active Xpeyrjiwon-YLWK-Hhtioenu 50-325-40 MG 1 capsule as needed Orally every 6 hours; Duration: 10 days 03/23/2022 Active Vitamin D 50 MCG (2000 UT) 1 capsule Ora lly Once a day; Duration: 90 days Active Naprosyn 500 MG 1 tablet with food o r milk as needed Orally every 12 hrs; Duration: 30 days 12/13/2020 Active Singulair 10 MG 1 tablet Orally Once a day; Duration: 90 days Active Gabapentin 100 MG 1 capsule Orally three times a day; Duration: 90 days Active DULoxetine HCl 60 MG 1 capsule Orally On ce a day; Duration: 90 days Active SUMAtriptan Succinate 100 MG 1 tablet at least 2 hours between doses as needed Orally Twice a day Active Albuterol Sulfate HFA 108 (9 0 Base) MCG/ACT INHALE 1 PUFF BY MOUTH EVERY 4 HOURS NEEDED; Duration: 66 Active risperiDONE 4 MG 1 tablet Orally Once a day Active oxyCODONE HCl 5 MG 1 tablet as needed prn severe pain Orally every 4-6 hrs; Duration: 10 days Active traZODone HCl 100 MG 2 tablet at bedtime Orally Once a day Active Immunizations Vaccine Route Administration Date Status Comme nts Flu vaccine no Preserv 3 and > Unknown 03/11/2020 Administered influenza IM Intramuscular 02/04/2023 Administered Influenza, seasonal, injectable, 6-35 months Unknown 11/20/2020 Administered Pfizer Covid-19 Vaccine Unknown 04/27/2020 Administered Pfizer Covid-19 Vaccine Unknown 05/18/2020 Administered Pfizer Covid-19 Vaccine Unknown 12/13/2020 Administered Social History Tobacco Use: Social History Observation Description Date Details (start date - stop date) Never Smoker NA - NA Tobacco Use/Smoking Question Answer Notes Are you a nonsmoker Problems Problem Type SNOMED Code ICD Code Onset Dates Problem Status W/U Status Risk Notes Problem Hypothyroidism (49428394) Other specified hypothyroidism (E03.8) Active confirmed Problem Diabetic retinopathy (6376558) 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) Active confirmed Problem Vitamin D deficiency (64542313) Vitamin D deficiency, unspecified (E55.9) Active confirmed Problem Carpal tunnel syndrome (61061788) Carpal tunnel syndrome, unspecified upper limb (G56.00) Active confirmed Problem Chronic pain (98980461) Other chronic pain (G89.29) Active confirmed Problem Adult health examination (585858075) Encounter for general adult medical examination without abnormal findings (Z00.00) Active confirmed Problem Memory loss (06960160) Memory loss (R41.3) Active confirmed Problem Depressive disorder (disorder) (43440095) Depression, unspecified depression type (F32.9) Active confirmed Problem Hypothyroidism (70903152) Hypothyroidism, unspecified type (E03.9) Active confirmed Problem Sore throat (456564388) Sore throat (J02.9) Active confirmed Problem Rectal pain (82245635) Rectal pain (K62.89) Active confirmed Problem Arthralgia of the upper arm (418492914) Left elbow pain (M25.522) Active confirmed Problem Arthralgia of the pelvic region and thigh (117061565) Hip pain, right (M25.551) Active confirmed Problem Exposure to tuberculosis (6347182217471) Exposure to TB (Z20.1) Active confirmed Problem Essential hypertension (54478083) Hypertension, unspecified type (I10) Active confirmed Problem Lumbar radiculopathy (303860292) Lumbar radiculopathy (M54.16) Active confirmed Problem Ataxia (54890776) Ataxia (R27.0) Active confirm ed Problem Displacement of lumbar intervertebral disc without myelopathy (59221643) Herniated intervertebral disc of lumbar spine (M51.26) Active confirmed Problem Mixed hyperlipidemia (644163920) Combined hyperlipidemia (E78.2) Active confirmed Problem Migraine aura without headache (351968970) 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) Active confirmed Problem Depressive disorder (disorder) (61313843) Depression, unspecified depression type (F32.A) Active confirmed Problem Avitaminosis D (17103476) Avitaminosis D (E55.9) Active confirmed Problem Mild major depression (79896193) 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) Active confirmed Vital Signs Heart Rate 79 /min 07/26/2024 Oximetry 99 % 07/26/2024 Blood pressure diastolic 84 mm Hg 07/26/2024 Height 66 in 07/26/2024 Blood pressure systolic 138 mm Hg 07/26/2024 Weight 164 lbs 07/26/2024 BMI 26.47 kg/m2 07/26/2024 Encounters Encounter Location Date Provider Diagnosis [facility] [address] [address] 08/24/2023 NIRMAL NORRIS Rectal pain K62.89 [facility] [address] [address] 11/30/2023 NIRMAL NORRIS Annual physical exam Z00.00 ; Encounter for screening for other disorder Z13.89 ; Encounter for screening for depression Z13.31 ; Hypertension, unspecified type I10 ; Lumbar radiculopathy M54.16 ; Hip pain, right M25.551 ; Combined hyperlipidemia E78.2 ; Dorsalgia, unspecified M54.9 ; Herniated intervertebral disc of lumbar spine M51.26 and Mild major depression F32.0 [facility] [address] [address] 03/28/2024 NIRMAL BORHOT Hypertension, unspec ified type I10 ; Lumbar radiculopathy M54.16 ; Hip pain, right M25.551 ; Combined hyperlipidemia E78.2 ; Dorsalgia, unspecified M54.9 ; Herniated intervertebral disc of lumbar spine M51.26 and Mild major depression F32.0 [facility] [address] [address] 07/26/2024 NIRMAL BORHOT Hypertension, unspec ified type I10 ; Lumbar radiculopathy M54.16 ; Hip pain, right M25.551 ; Combined hyperlipidemia E78.2 ; Dorsalgia, unspecified M54.9 ; Herniated intervertebral disc of lumbar spine M51.26 ; Mild major depression F32.0 ; Other chronic pain G89.29 ; Encounter for examination of blood pressure without abnormal findings Z01.30 and Pain, joint, shoulder, left M25.[address] [facility] [address] [place] [address] 08/24/2023 NIRMAL BORHOT [facility] [address] 11/30/2023 LENCHO FAITH [facility] [address] 03/06/2024 NIRMAL BORHOT [facility] [address] 03/07/2024 NIRMAL BORHOT [facility] [address] [place] [address] 07/25/2024 NIRMAL BORHOT [facility] [address] [address] 07/26/2024 LENCHO FAITH Assessments Encounter Date Diagnosis (ICD Code) Assessment Notes Treatment Notes Treatment Clinical Notes Section Notes 08/24/2023 Rectal pain (ICD-10 - K62.89) Refer to colorectal surgery Of note, some information is being carried forward from prior records for informational purposes only and is being cited so that efficiency, safety and quality of the patient's care is not compromised This note was prepared using voice recognition software and direct typing Please excuse inadvertent face worker or typing errors, or uncorrected word substitutions Although every attempt has been made by the provider to proofread this document, occasional misspellings and typographical errors may still be present Due to the previous pandemic, and the use of personal protective equipment (PPE) This may decrease voice recognition accuracy Inadvertent face worker errors may occur 11/30/2023 Annual physical exam (ICD-10 - Z00.00) Patient is here for [facility] Acute Concerns/Problem List: 11/30/2023 Chronic conditions discussed. _update labs please Referral to [place] [facility] MOLST/HCP Discussed and Filed Of note, some information is being carried forward from prior records for informational purposes only and is being cited so that efficiency, safety and quality of the patient's care is not compromised This note was prepared using voice recognition software and direct typing Please excuse inadvertent face worker or typing errors, or uncorrected word substitutions Although every attempt has been made by the provider to proofread this document, occasional misspellings and typographical errors may still be present Due to the previous pandemic, and the use of personal protective equipment (PPE) This may decrease voice recognition accuracy Inadvertent face worker errors may occur 03/28/2024 Hypertension, unspecified type (ICD-10 - I10) Acute Concerns/Problem List: 03/28/2024 Chronic conditions discussed. I have given him Nurtec samples Referral to [place] [facility], Patient to follow-up Labs reviewed Of note, some information is being carried forward from prior records for informational purposes only and is being cited so that efficiency, safety and quality of the patient's care is not compromised This note was prepared using voice recognition software and direct typing Please excuse inadvertent face worker or typing errors, or uncorrected word substitutions Although every attempt has been made by the provider to proofread this document, occasional misspellings and typographical errors may still be present Due to the previous pandemic, and the use of personal protective equipment (PPE) This may decrease voice recognition accuracy Inadvertent face worker errors may occur 07/26/2024 Hypertension, unspecified type (ICD-10 - I10) Acute Concerns/Problem List: 07/26/2024 Left shoulder films and orthopedics, I suspect OA or calcific tendinitis May benefit from steroid injections Lets request [place] [facility] notes _update labs and Medicare visit in the fall Of note, some information is being carried forward from prior records for informational purposes only and is being cited so that efficiency, safety and quality of the patient's care is not compromised This note was prepared using voice recognition software and direct typing Please excuse inadvertent face worker or typing errors, or uncorrected word substitutions Although every attempt has been made by the provider to proofread this document, occasional misspellings and typographical errors may still be present Due to the previous pandemic, and the use of personal protective equipment (PPE) This may decrease voice recognition accuracy Inadvertent face worker errors may occur 07/26/2024 Lumbar radiculopathy (ICD-10 - M54.16) Acute Concerns/Problem List: 07/26/2024 Left shoulder films and orthopedics, I suspect OA or calcific tendinitis May benefit from steroid injections Lets request [place] [facility] notes _update labs and Medicare visit in the fall Of note, some information is being carried forward from prior records for informational purposes only and is being cited so that efficiency, safety and quality of the patient's care is not compromised This note was prepared using voice recognition software and direct typing Please excuse inadvertent face worker or typing errors, or uncorrected word substitutions Although every attempt has been made by the provider to proofread this document, occasional misspellings and typographical errors may still be present Due to the previous pandemic, and the use of personal protective equipment (PPE) This may decrease voice recognition accuracy Inadvertent face worker errors may occur 03/28/2024 Lumbar radiculopathy (ICD-10 - M54.16) Acute Concerns/Problem List: 03/28/2024 Chronic conditions discussed. [facility] to [place] [facility], Patient to follow-up Labs reviewed Of note, some information is being carried forward from prior records for informational purposes only and is being cited so that efficiency, safety and quality of the patient's care is not compromised This note was prepared using voice recognition software and direct typing Please excuse inadvertent face worker or typing errors, or uncorrected word substitutions Although every attempt has been made by the provider to proofread this document, occasional misspellings and typographical errors may still be present Due to the previous pandemic, and the use of personal protective equipment (PPE) This may decrease voice recognition accuracy Inadvertent face worker errors may occur 11/30/2023 Encounter for screening for other disorder (ICD-10 - Z13.89) Patient is here for [facility] Acute Concerns/Problem List: 11/30/2023 Chronic conditions discussed. _update labs please Referral to [place] [facility] MOLST/HCP Discussed and Filed Of note, some information is being carried forward from prior records for informational purposes only and is being cited so that efficiency, safety and quality of the patient's care is not compromised This note was prepared using voice recognition software and direct typing Please excuse inadvertent face worker or typing errors, or uncorrected word substitutions Although every attempt has been made by the provider to proofread this document, occasional misspellings and typographical errors may still be present Due to the previous pandemic, and the use of personal protective equipment (PPE) This may decrease voice recognition accuracy Inadvertent face worker errors may occur 11/30/2023 Encounter for screening for depression (ICD-10 - Z13.31) Patient is here for [facility] Acute Concerns/Problem List: 11/30/2023 Chronic conditions discussed. _update labs please Referral to [place] [facility] MOLST/HCP Discussed and Filed Of note, some information is being carried forward from prior records for informational purposes only and is being cited so that efficiency, safety and quality of the patient's care is not compromised This note was prepared using voice recognition software and direct typing Please excuse inadvertent face worker or typing errors, or uncorrected word substitutions Although every attempt has been made by the provider to proofread this document, occasional misspellings and typographical errors may still be present Due to the previous pandemic, and the use of personal protective equipment (PPE) This may decrease voice recognition accuracy Inadvertent face worker errors may occur 03/28/2024 Hip pain, right (ICD-10 - M25.551) Acute Concerns/Problem List: 03/28/2024 Chronic conditions discussed. I have given him Nurtec samples Referral to [place] [facility], Patient to follow-up Labs reviewed Of note, some information is being carried forward from prior records for informational purposes only and is being cited so that efficiency, safety and quality of the patient's care is not compromised This note was prepared using voice recognition software and direct typing Please excuse inadvertent face worker or typing errors, or uncorrected word substitutions Although every attempt has been made by the provider to proofread this document, occasional misspellings and typographical errors may still be present Due to the previous pandemic, and the use of personal protective equipment (PPE) This may decrease voice recognition accuracy Inadvertent face worker errors may occur 07/26/2024 Hip pain, right (ICD-10 - M25.551) Acute Concerns/Problem List: 07/26/2024 Left shoulder films and orthopedics, I suspect OA or calcific tendinitis May benefit from steroid injections Lets request [place] [facility] notes _update labs and Medicare visit in the fall Of note, some information is being carried forward from prior records for informational purposes only and is being cited so that efficiency, safety and quality of the patient's care is not compromised This note was prepared using voice recognition software and direct typing Please excuse inadvertent face worker or typing errors, or uncorrected word substitutions Although every attempt has been made by the provider to proofread this document, occasional misspellings and typographical errors may still be present Due to the previous pandemic, and the use of personal protective equipment (PPE) This may decrease voice recognition accuracy Inadvertent face worker errors may occur 07/26/2024 Combined hyperlipidemia (ICD-10 - E78.2) Acute Concerns/Problem List: 07/26/2024 Left shoulder films and orthopedics, I suspect OA or calcific tendinitis May benefit from steroid injections Lets request [place] [facility] notes _update labs and Medicare visit in the fall Of note, some information is being carried forward from prior records for informational purposes only and is being cited so that efficiency, safety and quality of the patient's care is not compromised This note was prepared using voice recognition software and direct typing Please excuse inadvertent face worker or typing errors, or uncorrected word substitutions Although every attempt has been made by the provider to proofread this document, occasional misspellings and typographical errors may still be present Due to the previous pandemic, and the use of personal protective equipment (PPE) This may decrease voice recognition accuracy Inadvertent face worker errors may occur 11/30/2023 Hypertension, unspecified type (ICD-10 - I10) Patient is here for [facility] Acute Concerns/Problem List: 11/30/2023 Chronic conditions discussed. _update labs please Referral to [place] [facility] MOLST/HCP Discussed and Filed Of note, some information is being carried forward from prior records for informational purposes only and is being cited so that efficiency, safety and quality of the patient's care is not compromised This note was prepared using voice recognition software and direct typing Please excuse inadvertent face worker or typing errors, or uncorrected word substitutions Although every attempt has been made by the provider to proofread this document, occasional misspellings and typographical errors may still be present Due to the previous pandemic, and the use of personal protective equipment (PPE) This may decrease voice recognition accuracy Inadvertent face worker errors may occur 03/28/2024 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 [facility] [place] [facility], Patient to follow-up Labs reviewed Of note, some information is being carried forward from prior records for informational purposes only and is being cited so that efficiency, safety and quality of the patient's care is not compromised This note was prepared using voice recognition software and direct typing Please excuse inadvertent face worker or typing errors, or uncorrected word substitutions Although every attempt has been made by the provider to proofread this document, occasional misspellings and typographical errors may still be present Due to the previous pandemic, and the use of personal protective equipment (PPE) This may decrease voice recognition accuracy Inadvertent face worker errors may occur 07/26/2024 Dorsalgia, unspecified (ICD-10 - M54.9) Acute Concerns/Problem List: 07/26/2024 Left shoulder films and orthopedics, I suspect OA or calcific tendinitis May benefit from steroid injections Lets request [place] [facility] notes _update labs and Medicare visit in the fall Of note, some information is being carried forward from prior records for informational purposes only and is being cited so that efficiency, safety and quality of the patient's care is not compromised This note was prepared using voice recognition software and direct typing Please excuse inadvertent face worker or typing errors, or uncorrected word substitutions Although every attempt has been made by the provider to proofread this document, occasional misspellings and typographical errors may still be present Due to the previous pandemic, and the use of personal protective equipment (PPE) This may decrease voice recognition accuracy Inadvertent face worker errors may occur 11/30/2023 Lumbar radiculopathy (ICD-10 - M54.16) Patient is here for [facility] Acute Concerns/Problem List: 11/30/2023 Chronic conditions discussed. _update labs please Referral to [place] [facility] MOLST/HCP Discussed and Filed Of note, some information is being carried forward from prior records for informational purposes only and is being cited so that efficiency, safety and quality of the patient's care is not compromised This note was prepared using voice recognition software and direct typing Please excuse inadvertent face worker or typing errors, or uncorrected word substitutions Although every attempt has been made by the provider to proofread this document, occasional misspellings and typographical errors may still be present Due to the previous pandemic, and the use of personal protective equipment (PPE) This may decrease voice recognition accuracy Inadvertent face worker errors may occur 03/28/2024 Dorsalgia, unspecified (ICD-10 - M54.9) Acute Concerns/Problem List: 03/28/2024 Chronic conditions discussed. I have given him [employer]ur[employer] samples Referral to [place] [facility], Patient to follow-up Labs reviewed Of note, some information is being carried forward from prior records for informational purposes only and is being cited so that efficiency, safety and quality of the patient's care is not compromised This note was prepared using voice recognition software and direct typing Please excuse inadvertent face worker or typing errors, or uncorrected word substitutions Although every attempt has been made by the provider to proofread this document, occasional misspellings and typographical errors may still be present Due to the previous pandemic, and the use of personal protective equipment (PPE) This may decrease voice recognition accuracy Inadvertent face worker errors may occur 11/30/2023 Hip pain, right (ICD-10 - M25.551) Patient is here for [facility] Acute Concerns/Problem List: 11/30/2023 Chronic conditions discussed. _update labs please Referral to [place] [facility]OL[facility]/HCP Discussed and Filed Of note, some information is being carried forward from prior records for informational purposes only and is being cited so that efficiency, safety and quality of the patient's care is not compromised This note was prepared using voice recognition software and direct typing Please excuse inadvertent face worker or typing errors, or uncorrected word substitutions Although every attempt has been made by the provider to proofread this document, occasional misspellings and typographical errors may still be present Due to the previous pandemic, and the use of personal protective equipment (PPE) This may decrease voice recognition accuracy Inadvertent face worker errors may occur 07/26/2024 Herniated intervertebral disc of lumbar spine (ICD-10 - M51.26) Acute Concerns/Problem List: 07/26/2024 Left shoulder films and orthopedics, I suspect OA or calcific tendinitis May benefit from steroid injections Lets request [place] [facility] notes _update labs and Medicare visit in the fall Of note, some information is being carried forward from prior records for informational purposes only and is being cited so that efficiency, safety and quality of the patient's care is not compromised This note was prepared using voice recognition software and direct typing Please excuse inadvertent face worker or typing errors, or uncorrected word substitutions Although every attempt has been made by the provider to proofread this document, occasional misspellings and typographical errors may still be present Due to the previous pandemic, and the use of personal protective equipment (PPE) This may decrease voice recognition accuracy Inadvertent face worker errors may occur 03/28/2024 Herniated intervertebral disc of lumbar spine (ICD-10 - M51.26) Acute Concerns/Problem List: 03/28/2024 Chronic conditions discussed. I have given him Nurtec samples Referral to [place] [facility], Patient to follow-up Labs reviewed Of note, some information is being carried forward from prior records for informational purposes only and is being cited so that efficiency, safety and quality of the patient's care is not compromised This note was prepared using voice recognition software and direct typing Please excuse inadvertent face worker or typing errors, or uncorrected word substitutions Although every attempt has been made by the provider to proofread this document, occasional misspellings and typographical errors may still be present Due to the previous pandemic, and the use of personal protective equipment (PPE) This may decrease voice recognition accuracy Inadvertent face worker errors may occur 03/28/2024 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 I have given him [employer]urtec samples Referral to [place] [facility], Patient to follow-up Labs reviewed Of note, some information is being carried forward from prior records for informational purposes only and is being cited so that efficiency, safety and quality of the patient's care is not compromised This note was prepared using voice recognition software and direct typing Please excuse inadvertent face worker or typing errors, or uncorrected word substitutions Although every attempt has been made by the provider to proofread this document, occasional misspellings and typographical errors may still be present Due to the previous pandemic, and the use of personal protective equipment (PPE) This may decrease voice recognition accuracy Inadvertent face worker errors may occur 11/30/2023 Combined hyperlipidemia (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 _update labs please Referral to [place] [facility] MOLST/HCP Discussed and Filed Of note, some information is being carried forward from prior records for informational purposes only and is being cited so that efficiency, safety and quality of the patient's care is not compromised This note was prepared using voice recognition software and direct typing Please excuse inadvertent face worker or typing errors, or uncorrected word substitutions Although every attempt has been made by the provider to proofread this document, occasional misspellings and typographical errors may still be present Due to the previous pandemic, and the use of personal protective equipment (PPE) This may decrease voice recognition accuracy Inadvertent face worker errors may occur 07/26/2024 Mild major depression (ICD-10 - F32.0) Acute Concerns/Problem List: 07/26/2024 Left shoulder films and orthopedics, I suspect OA or calcific tendinitis May benefit from steroid injections Lets request [place] [facility] notes _update labs and Medicare visit in the fall Of note, some information is being carried forward from prior records for informational purposes only and is being cited so that efficiency, safety and quality of the patient's care is not compromised This note was prepared using voice recognition software and direct typing Please excuse inadvertent face worker or typing errors, or uncorrected word substitutions Although every attempt has been made by the provider to proofread this document, occasional misspellings and typographical errors may still be present Due to the previous pandemic, and the use of personal protective equipment (PPE) This may decrease voice recognition accuracy Inadvertent face worker errors may occur 07/26/2024 Other chronic pain (ICD-10 - G89.29) Acute Concerns/Problem List: 07/26/2024 Left shoulder films and orthopedics, I suspect OA or calcific tendinitis May benefit from steroid injections Lets request [place] [facility] notes _update labs and Medicare visit in the fall Of note, some information is being carried forward from prior records for informational purposes only and is being cited so that efficiency, safety and quality of the patient's care is not compromised This note was prepared using voice recognition software and direct typing Please excuse inadvertent face worker or typing errors, or uncorrected word substitutions Although every attempt has been made by the provider to proofread this document, occasional misspellings and typographical errors may still be present Due to the previous pandemic, and the use of personal protective equipment (PPE) This may decrease voice recognition accuracy Inadvertent face worker errors may occur 11/30/2023 Dorsalgia, unspecified (ICD-10 - M54.9) Patient is here for [facility] Acute Concerns/Problem List: 11/30/2023 Chronic conditions discussed. _update labs please Referral to [place] [facility]OL[facility]/HCP Discussed and Filed Of note, some information is being carried forward from prior records for informational purposes only and is being cited so that efficiency, safety and quality of the patient's care is not compromised This note was prepared using voice recognition software and direct typing Please excuse inadvertent face worker or typing errors, or uncorrected word substitutions Although every attempt has been made by the provider to proofread this document, occasional misspellings and typographical errors may still be present Due to the previous pandemic, and the use of personal protective equipment (PPE) This may decrease voice recognition accuracy Inadvertent face worker errors may occur 07/26/2024 Encounter for examination of blood pressure without abnormal findings (ICD-10 - Z01.30) Acute Concerns/Problem List: 07/26/2024 Left shoulder films and orthopedics, I suspect OA or calcific tendinitis May benefit from steroid injections Lets request [place] [facility] notes _update labs and Medicare visit in the fall Of note, some information is being carried forward from prior records for informational purposes only and is being cited so that efficiency, safety and quality of the patient's care is not compromised This note was prepared using voice recognition software and direct typing Please excuse inadvertent face worker or typing errors, or uncorrected word substitutions Although every attempt has been made by the provider to proofread this document, occasional misspellings and typographical errors may still be present Due to the previous pandemic, and the use of personal protective equipment (PPE) This may decrease voice recognition accuracy Inadvertent face worker errors may occur 11/30/2023 Herniated intervertebral disc of lumbar spine (ICD-10 - M51.26) Patient is here for [facility] Acute Concerns/Problem List: 11/30/2023 Chronic conditions discussed. _update labs please Referral to [place] [facility] MOLST/HCP Discussed and Filed Of note, some information is being carried forward from prior records for informational purposes only and is being cited so that efficiency, safety and quality of the patient's care is not compromised This note was prepared using voice recognition software and direct typing Please excuse inadvertent face worker or typing errors, or uncorrected word substitutions Although every attempt has been made by the provider to proofread this document, occasional misspellings and typographical errors may still be present Due to the previous pandemic, and the use of personal protective equipment (PPE) This may decrease voice recognition accuracy Inadvertent face worker errors may occur 11/30/2023 Mild major depression (ICD-10 - F32.0) Patient is here for [facility] Acute Concerns/Problem List: 11/30/2023 Chronic conditions discussed. _update labs please Referral to [place] [facility]/HCP Discussed and Filed Of note, some information is being carried forward from prior records for informational purposes only and is being cited so that efficiency, safety and quality of the patient's care is not compromised This note was prepared using voice recognition software and direct typing Please excuse inadvertent face worker or typing errors, or uncorrected word substitutions Although every attempt has been made by the provider to proofread this document, occasional misspellings and typographical errors may still be present Due to the previous pandemic, and the use of personal protective equipment (PPE) This may decrease voice recognition accuracy Inadvertent face worker errors may occur 07/26/2024 Pain, joint, shoulder, left (ICD-10 - M25.512) Acute Concerns/Problem List: 07/26/2024 Left shoulder films and orthopedics, I suspect OA or calcific tendinitis May benefit from steroid injections Lets request [place] [facility] notes _update labs and Medicare visit in the fall Of note, some information is being carried forward from prior records for informational purposes only and is being cited so that efficiency, safety and quality of the patient's care is not compromised This note was prepared using voice recognition software and direct typing Please excuse inadvertent face worker or typing errors, or uncorrected word substitutions Although every attempt has been made by the provider to proofread this document, occasional misspellings and typographical errors may still be present Due to the previous pandemic, and the use of personal protective equipment (PPE) This may decrease voice recognition accuracy Inadvertent face worker errors may occur Plan Of Treatment Pending Test Test Name Order Date X ray : Shoulder, left 07/26/2024 EMG/NCV ARMS 06/07/2020 TSH 06/07/2020 Influenza A/B and RSV PCR 12/18/2021 Throat culture 01/13/2021 MRI : Lumbar without contrast 10/01/2021 MRI : Lumbar without contrast 05/10/2023 25OH VITAMIN D 06/21/2023 CBC (COMPLETE BLOOD COUNT) 05/07/2020 CBC (COMPLETE BLOOD COUNT) 07/15/2021 CBC (COMPLETE BLOOD COUNT) WITH DIFF COMPREHENSIVE METABOLIC PANEL 06/21/2023 COMPREHENSIVE METABOLIC PANEL 07/15/2021 COMPREHENSIVE METABOLIC PANEL 05/07/2020 HEMOGLOBIN A1C 05/07/2020 HEMOGLOBIN A1C 07/15/2021 HEMOGLOBIN A1C 06/21/2023 LIPID PANEL 06/21/2023 LIPID PANEL 05/07/2020 LIPID PANEL 07/15/2021 PSA, SCREEN 07/15/2021 TSH 07/15/2021 TSH WITH REFLEX TO FT4 06/21/2023 URINALYSIS W/REFLEX CULTURE 06/21/2023 Chest 2 Views Frontal and Lat 04/10/2022 MRI Brain w/o Contrast 03/23/2022 XR Chest 2 Views 11/24/2022 XR Elbow 2 Views LT 07/15/2021 XR Hip 2+ Views RT 10/01/2021 XR Wrist 3+ Views RT 12/13/2020 LIPID PANEL, STANDARD 07/26/2024 COMPREHENSIVE METABOLIC PANEL 07/26/2024 CBC (INCLUDES DIFF/PLT) 07/26/2024 URINALYSIS, COMPLETE 07/26/2024 HEMOGLOBIN A1c 07/26/2024 PSA (FREE AND TOTAL) 07/26/2024 TSH 07/26/2024 VITAMIN D,25-OH,TOTAL,IA 07/26/2024 QUANTIFERON TB GOLD PLUS 07/15/2021 THROAT CULTURE [...] W/REFLEX CULTURE 11/21/2022 Next Appt Details Provider Name:NIRMALSHANNON NORRIS, 11/28/2024 09:00:00 AM, [address] [place] [address], [facility] [address], [place], [address], Insurance Providers Payer Name Payer Address Payer Phone Subscriber Number Group Number Insured Name Patient Relationship to Insured Coverage Start Date Coverage End Date [employer] or Options [address] [place] [id number] [phone] [id number] ANTHONY LAND Self - patient is the insured Medical (General) History Medical History History ICD Code hypertension asthma seasonal allergies hemorrhoids thyroid disease Arthritis anxiety depression Surgical History Surgery Date(Month/Year) inguinal hernia repair
--- OUTSIDE RECORDS SUMMARY | 2024-08-22 15:44 | XMS_ITS | Data Portability ---
Author Organization [place] - Jose Alfredo Nunez [facility], [facility] Address [address] [place] [address] Assessment No assessment recorded. Plan of Treatment Reminders Order Date Submit Date Provider Last Modified By Organization Details Last Modified Time Details Appointments None recorded. Lab vitamin D panel, serum or plasma - blood work to evaluate vitamin d levels 2023 [employer] [facility], [address] [facility], [address], [place], [address], 4 07:15:33 Referral None recorded. Procedures None recorded. Surgeries None recorded. Imaging XR, lumbosacral spine, 4 or more view - Must see 326 4v l-spine 2023 [email or web address] 14 [facility], [address], [address], [place], [address], 4 17:11:14 Medication Orders gabapentin 300 mg capsule 2023 024 pchandler 14 Not available 17:11:14 Patient TargetsNo [...] a4ajBk vP9nXo QUaueC m3YtLR FvZlgJ JJ8mAn HZtai3 2x2869 AC0Kvb HWMUar eUC8mr 84%3D INTERFACE [facility] [address], [place], [address], 07/01/2023 09:27:22 07/01/19 24 07/01/2023 XR, lumbo sacra l spine , 4 or more view http:/ [email or web address] ?Encry pted=s hAaTro YD8dLq bEUv6g %2BXZw aYqtaq 0bqfl% 2Fg9IQ a4ajBk vP9nXo QUaueC m3YtLR FvZlgJ JJ8mAn HZtai3 8c9701 AC0Kvb HWMUar eUC8mr 84%3D INTERFACE [facility] [address], [place], [address], 07/01/2023 09:27:24 07/02/19 24 05/28/2023 MRI, lumba r spine , w/o contr ast No observ ation record ed. BARCODE Not Available 2023 14:18:14 10/09/19 24 06/02/2018 imagi ng/di agnos tic resul t No observ ation record ed. [email or web address] Not Available 09/10 02:51:22 Result Notes Documentation Provider Name and Address Organization Details Recorded Time Xr, Lumbosacral Spine, 4 Or More View : [email or web address]? Encrypted=gjLqYfwAD5aUejF Uv6g%8LXMaqCumie1cmyd%2Fg 7KZj3ejRatJ7yYjBUwioSn7Sp XSFrIeyLXG2oHiACtrq76k266 3NN4HfrKJPFdhlRR5sb85%3D Not Available [facility] 07/01/2023 09:2 7:22 Xr, Lumbosacral Spine, 4 Or More View : [email or web address]? Encrypted=lvUjRnhNN9yWemA Uv6g%2BXCikKezik3szha%2Fg 4WHb1fmHlgP8iUxMZifiGv0Os SPTpTdkQDB2jHmEVovs24s170 5CJ4PjfEQSRntbYE9du88%3D Not Available [facility] 07/01/2023 09:2 7:24 Problems Name Problem SNOMED Code Status Onset Date Resolution Date Notes Provider Name and Address Organization Details Recorded Time No complaint s 587219237 Active Status: 'I'; Not Available [facility] 4 09:24:21 Pain of right wrist 403942381530 100 Active 2016 Problem Code: M25.531; Problem Code Type: ICD-10; Status: 'A'; Not Available [facility] 4 12:12:15 Lumbar radiculop athy 945756565 Active 2023 Clement Soliman MD [address] [facility] [address], [place], [address] , [facility] 4 13:05:35 Radiculop athy due to lumbar intervert ebral disc disorder 453535179397 105 Active 2023 Clement Soliman MD [address] [employer] [facility] [address], [place], [address] , [facility] 4 13:05:38 Problem Notes None recorded. Procedures Surgical History Date Name Laterality Status Provider Name and Address Organization Details Recorded Time procedure on testis completed FRANKIE LEE [facility] 07/01/2023 10:25:08 Imaging Results None recorded. Procedure Notes None recorded. Medical Equipment None [...] active Not Available Not Available Not Available Rupaxroni Inhub 250 mcg-50 mcg/dose powder for inhalation USE 1 INHALATION BY MOUTH TWICE DAILY active Not Available Not Available Not Available Trelegy Ellipta 200 mcg-62.5 mcg-25 mcg powder for inhalation INHALE 1 PUFF BY MOUTH EVERY DAY active Not Available Not Available No t Available Vitals Date Recorded Body height Body mass index (BMI) Body weight Provider Name and Address Organization Details Last Updated DateTime 06/29/2023 167.64 cm 26.8 kg/m2 57951.33 g Franchesca Petty [facility] 06/29/2023 10:43:08 Date Recorded Body height Body mass index (BMI) Body weight Provider Name and Address Organization Details Last Updated DateTime 07/01/2023 167.64 cm 26.8 kg/m2 70689.33 g FRANKIE LEE [facility] 07/01/2023 09:36:29 Social History Question Answer Notes LastModified by Organizat ion Details LastModified Time Tobacco Smoking Status Never Smoker Clement Soliman MD [address] [facility] [address], [place], [address], [facility] 07/01/2023 13:04:49 What Is Your Relationship Status? Information not available 07/01/2023 Sex: Unknown Functional Status Question Answer Note LastModified by Organizat ion Details LastModified Time Do you use any illicit or recreational drugs? No [email or web address] Information not available 07/01/2023 What is your level of alcohol consumption? Occasional [email or web address] Information not available 07/01/2023 Mental Status None recorded. Family History Nothing Reported. Medical History Condition Response Anxiety/Depression Y Thyroid Problems Y Hypertension Y Asthma Y Past Encounters Encounter ID Performer Location Encounter Start Date Encounter Closed Date Diagnosis/Indication Diagnosis SNOMED-CT Code Diagnosis ICD10 Code Diagnosis Note [id number] [facility] [address] [place] [address] 06/29/2023 09:57:26 07/22/2023 11:56:39 Lumbar radiculopathy 988580314 M54.16 [id number] Clement Soliman MD [place] [address], [place] [address] 07/01/2023 08:54:28 07/23/2023 11:28:25 Lumbar radiculopathy 908463473 M54.16 53-year-ol d male with L4-5 right-side [...] 3 times daily to help with his symptoms.P sherif has been prescribed medication today. Risks, benefits interactio ns with other medication s have been reviewed and gone over with the patient today. It has been electronic ally sent to the pharmacy. Radiculopa thy due to lumbar intervertebral disc disorder 9159613313 95307 M51.16 Lumbar spondylosis 43963 0009 M47.896 Health Concerns Section Related Observation LastModified by Organization Cordell louis LastModified Time None Recorded Concern Status LastModified by Organization Details LastModified Time None Recorded Advance Directives Directive None Recorded Payers Insurance Date Sequence Insurance Name Policy Number Policy Otto Covered Member ID Otto Member ID Guarantor Name 07/22/2023 1 [facility] - DOS ON OR AFTER 2022 - ONE CARE (MEDICARE REPLACEMENT/ADV ANTAGE - HMO) Donavon Schmitz [id number] Donavon Schmitz Notes Date Note Type Note [...] Worsening over time. 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 He is Sri [place]ankan-speaking and a shirrer was utilized today. Physical therapy for lumbar [...] by me and is located in the patient s chart. Examination: The patient is well appearing, [...] of 5 on the right side only. Re exes normal. No ankle clonus. MRI of the lumbar spine reviewed independently. Images from [facility]. This reveals degenerative disc findings L4-S1 with [...] due to this. Follow-up will be arranged. [employer] speech recognition drinking water technician software was used to create portions of this document. An attempt at proofreading has been made to minimize errors. Please call for corrections. Juliana Mccauley PA-C [address], [place], [address], [facility] 06/29/2023 11:46:43 07/01/2023 text/html Sri [place]ankan only speaking patient. Entire encounter was completed with the use of a shirrer took over 20 minutes.53-year-old male presents complaining of lower back pain right lower extremity radiation has been present for a year however increased significantly over the past 3 months. He has been to physical therapy which has not been helpful. Additionally has had injections at [facility] which have lost benefit. Currently taking OxyContin, tramadol, and gabapentin. Clement Soliman MD [address], [place], [address], [facility] 07/01/2023 13:06:11
[2024-09-04 12:19] VITALS: BP 149/85; PULSE 75; RESP 18; O2SAT 98; BMI 26.7
[2024-09-07] VITALS (7 sets, daily range): BP systolic 119–148; BP diastolic 59–87; PULSE 61–85; RESP 16–20; TEMP 36.1–36.9; O2SAT 97–100; BMI 26.2
--- NOTE | ~2024-09-07 | FL_ITS ---
EXAMINATION: FL GUIDANCE ONLY HISTORY: L4 foraminotomy right COMPARISON: Correlation is made with plain films of the lumbar spine dated 07/31/2024. TECHNIQUE: Fluoroscopy time: Less than 1 minute. Cumulative Dose: 3.72 mGy. DAP: 1.01 mGym2 Images: 1. FINDINGS: A single fluoroscopic spot film of the lumbar spine in the lateral projection demonstrates a probe directed toward the L4-5 intervertebral disc space from a posterior approach. FL/FL guidance in OR IMPRESSION: Fluoroscopy during procedure. Please see procedure report for additional information. Electronically signed by: Robert Mariee MD 09/07/2024 12:42 PM EDT
[2024-09-07] MEDS: Lactated Ringers 1,000 ML 100 ML IVCONT (08:57)
--- NOTE | 2024-09-07 10:37 | HO.ANESPROP2 ---
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 [facility] Active Problems Active Problems: All Active Problems Lumbar spondylosis (Acute) Right lumbar radiculopathy (Acute) Past Medical History Medical History (Updated 09/04/24 @ 12:13 by Stephania Monroe RN) Lumbar radiculopathy Anxiety Depression Arthritis Asthma Migraines Hypertension GERD (gastroesophageal reflux disease) Hypothyroid Family History Family history of problems with anesthesia: No Surgical History Surgical History (Updated 09/04/24 @ 12:13 by Stephania Monroe RN) History of esophagogastroduodenoscopy (EGD) H/O colonoscopy Hx of hernia repair History of Problems with Anesthesia: No Social History Social History Are you a primary manager progressive care to a significant other at home: No 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 If so, by whom?: No Spiritual Healthcare Practices: no Hindu Healthcare Practices: no Cultural Healthcare Practices: no Are you DNR?: No Advance Directives Information Provided: Yes (as above noted) Advance Directives on File: No Poor oral hygiene: No (upper front left implant) Meds Allergies Allergy/AdvReac Type Severity Reaction Status Date / Time No Known Allergies Allergy Verified 07/12/24 13:04 Home Medications ?Medication ?Instructions ?Recorded ?Confirmed ?Last Taken ?Type albuterol sulfate 90 mcg/actuation 1 puff inhalation QID PRN 12/09/23 09/01/24 09/07/24 History aerosol inhaler Shortness Of Breath Or Wheezing hicvwpcijt-yygnfmmrtopij-cjsqpglu 1 cap PO Q6H PRN migraine headaches 12/09/23 09/01/24 Unknown History 50 mg-325 mg-40 mg capsule cholecalciferol (vitamin D3) 50 50 mcg PO DAILY 12/09/23 09/01/24 Unknown History mcg (2,000 unit) capsule duloxetine 60 mg capsule,delayed 60 mg PO DAILY 12/09/23 09/01/24 Unknown History release gabapentin 100 mg capsule 100 mg PO TID 12/09/23 09/01/24 Unknown History hydrochlorothiazide 25 mg tablet 25 mg PO DAILY 12/09/23 09/01/24 Unknown History lisinopril 20 mg tablet 20 mg PO DAILY 12/09/23 09/01/24 Unknown History montelukast 10 mg tablet 10 mg PO DAILY 12/09/23 09/01/24 Unknown History (Singulair) naproxen 500 mg tablet (Naprosyn) 500 mg PO BID 12/09/23 09/01/24 09/03/24 History omeprazole 20 mg capsule,delayed 20 mg PO DAILY 12/09/23 09/01/24 Unknown History release risperidone 4 mg tablet 4 mg PO DAILY 12/09/23 09/01/24 Unknown History sumatriptan succinate 100 mg tablet See Rx Instructions PO .COMPLEX 12/09/23 09/01/24 Unknown History tramadol 50 mg tablet 50 mg PO BID PRN Pain 12/09/23 09/01/24 Unknown History trazodone 100 mg tablet 100 mg PO BID 12/09/23 09/01/24 Unknown History valacyclovir 1 gram tablet 1,000 mg PO TID 12/09/23 09/01/24 Unknown History fluticasone propionate 50 1 spray intranasal DAILY 04/28/24 09/01/24 Unknown History mcg/actuation nasal spray,suspension levothyroxine 25 mcg tablet 25 mcg PO DAILY 04/28/24 09/01/24 09/07/24 History tiotropium bromide 1.25 2 puff inhalation DAILY 04/28/24 09/04/24 Unknown History mcg/actuation mist for inhalation (Spiriva Respimat) diazepam 5 mg tablet 5 mg PO BEDTIME 09/04/24 09/04/24 Unknown History Exam Height,Weight and Vital Signs: Height 5 ft 6 in Weight 75 kg Last Vital Signs Pulse 75 09/04/24 12:19 Resp 18 09/04/24 12:19 BP 149/85 H 09/04/24 12:19 Pulse Ox 98 09/04/24 12:19 O2 Del Method Room Air 09/04/24 12:19 Airway Mallampati Class: II TM Dist: >3cm Neck ROM: Full Loose/Missing/Broken Teeth: No (#9 implant - stable) Heart: RRR Lungs: CTAB Assessment and Plan Assessment Anesthesia Assessment: Anesthesia Plan Discussed and PAT Visit Final Anesthetic Review Family History of Problems with Anesthesia: No History of Problems with Anesthesia: No Documented by User: Vanessa Muniz, DO 09/07/24 10:44 HPI - Anesthesia Eval Consult details Narrative: 54yo M for Right L4 Foraminotomy, 09/07/24 No recent illness No CP/SOB with ADLs, stretching, walking at the store Asthma: Stable on current regimen PMFSH Past Medical History Medical History (Updated 09/04/24 @ 12:13 by Stephania Monroe RN) Lumbar radiculopathy Anxiety Depression Arthritis Asthma Migraines Hypertension GERD (gastroesophageal reflux disease) Hypothyroid Family History Family history of problems with anesthesia: No Surgical History Surgical History (Updated 09/04/24 @ 12:13 by Stephania Monroe RN) History of esophagogastroduodenoscopy (EGD) H/O colonoscopy Hx of hernia repair History of Problems with Anesthesia: No Social History Social History Are you a primary manager progressive care to a significant other at home: No 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 If so, by whom?: No Spiritual Healthcare Practices: no Hindu Healthcare Practices: no Cultural Healthcare Practices: no Are you DNR?: No Advance Directives Information Provided: Yes (as above noted) Advance Directives on File: No Poor oral hygiene: No (upper front left implant) Meds Allergies Allergy/AdvReac Type Severity Reaction Status Date / Time No Known Allergies Allergy Verified 07/12/24 13:04 Home Medications ?Medication ?Instructions ?Recorded ?Confirmed ?Last Taken ?Type albuterol sulfate 90 mcg/actuation 1 puff inhalation QID PRN 12/09/23 09/01/24 09/07/24 History aerosol inhaler Shortness Of Breath Or Wheezing krcnfceeut-yjsxcxzyuwvbh-dfycrmkb 1 cap PO Q6H PRN migraine headaches 12/09/23 09/01/24 Unknown History 50 mg-325 mg-40 mg capsule cholecalciferol (vitamin D3) 50 50 mcg PO DAILY 12/09/23 09/01/24 Unknown History mcg (2,000 unit) capsule duloxetine 60 mg capsule,delayed 60 mg PO DAILY 12/09/23 09/01/24 Unknown History release gabapentin 100 mg capsule 100 mg PO TID 12/09/23 09/01/24 Unknown History hydrochlorothiazide 25 mg tablet 25 mg PO DAILY 12/09/23 09/01/24 Unknown History lisinopril 20 mg tablet 20 mg PO DAILY 12/09/23 09/01/24 Unknown History montelukast 10 mg tablet 10 mg PO DAILY 12/09/23 09/01/24 Unknown History (Singulair) naproxen 500 mg tablet (Naprosyn) 500 mg PO BID 12/09/23 09/01/24 09/03/24 History omeprazole 20 mg capsule,delayed 20 mg PO DAILY 12/09/23 09/01/24 Unknown History release risperidone 4 mg tablet 4 mg PO DAILY 12/09/23 09/01/24 Unknown History sumatriptan succinate 100 mg tablet See Rx Instructions PO .COMPLEX 12/09/23 09/01/24 Unknown History tramadol 50 mg tablet 50 mg PO BID PRN Pain 12/09/23 09/01/24 Unknown History trazodone 100 mg tablet 100 mg PO BID 12/09/23 09/01/24 Unknown History valacyclovir 1 gram tablet 1,000 mg PO TID 12/09/23 09/01/24 Unknown History fluticasone propionate 50 1 spray intranasal DAILY 04/28/24 09/01/24 Unknown History mcg/actuation nasal spray,suspension levothyroxine 25 mcg tablet 25 mcg PO DAILY 04/28/24 09/01/24 09/07/24 History tiotropium bromide 1.25 2 puff inhalation DAILY 04/28/24 09/04/24 Unknown History mcg/actuation mist for inhalation (Spiriva Respimat) diazepam 5 mg tablet 5 mg PO BEDTIME 09/04/24 09/04/24 Unknown History Exam Exam Date and Time: 09/07/24 1035 Air[address] Mallampati Class: II TM Dist: >3cm Neck ROM: Full Loose/Missing/Broken Teeth: No (permanent bridge upper jaw) Heart: S1S2 Assessment and Plan Assessment Anesthesia Assessment: Anesthesia Plan Discussed and Chart Reviewed Final Anesthetic Review Family History of Problems with Anesthesia: No History of Problems with Anesthesia: No NPO: Yes ASA Class: II Final Preanesthetic Review: No Changes in Pt Med Stat, Meds/Allgs Chart Reviewed, Consent Obtained/Reviewed (casing trimmer at bedside for translation) and Anes Risks/Benef Reviewed Patient Risk: Low Procedure Risk: Intermediate Anesthetic Plan Anesthetic Plan: GA and Agree w/ Assess. and Plan Disposition: Standard PACU
--- NOTE | 2024-09-07 10:46 | MHC.SHP ---
Pre-Procedural Eval Section A - 24 Hr Update-Section A only Date of Service: 09/07/24 The patient is an INPATIENT: No Section B - Complete if H&P > 30 days Chief Complaint: Radiculopathy, lumbar region Details of Present Illness: Right leg pain Allergies: Allergies Allergy/AdvReac Type Severity Reaction Status Date / Time No Known Allergies Allergy Verified 07/12/24 13:04 Review of Systems Sugical H&P ROS: Negative: Constitution, Cardiovascular, Respiratory, Neurological, Psychiatric, Hem-Onc, Allergic/Immunologic, Gastrointestinal, Genitourinary, Musculoskeletal, Integumentary, Endocrine and Eyes/Ears/Nose/Throat Exam Surgical H&P Exam: Normal: HEENT, Normal: Heart, Normal: Lungs, Normal: Extremities, Normal: Abdomen, Normal: Skin and Normal: Neurological (Awake, alert) Plan Diagnosis/Plan: Unchanged I have reviewed the history and physical and performed a pertinent physical examination on my patient. No changes have occurred unless specified. Right L4 foraminotomy Time Spent With Patient Time: Total time managing care of this patient today __5__ minutes.
--- NOTE | 2024-09-07 10:55 | P.DS_ITS ---
DS: Providers Provider Date of Service: 09/07/24 Date of discharge: 09/07/24 Primary care physician: Unknown Physician Admitting clinician: Reynaldo Yañez DS: Diagnosis Discharge Diagnosis (1) Right lumbar radiculopathy: Status: Acute DS: Summary Time Attestation Discharge Coordination Time (in mins): 5 Quality: Safe Use of Opioids Does Pt have an Active Cancer Diagnosis on the Problem List?: No Quality: Stroke Does the patient have a stroke diagnosis?: No Physical Exam Vital Signs: Vital Signs: Last Vital Signs Temp 97 F 09/07/24 09:00 Pulse 62 09/07/24 09:00 Resp 20 09/07/24 09:00 BP 148/87 H 09/07/24 09:00 Pulse Ox 98 09/07/24 09:00 O2 Del Method Room Air 09/07/24 09:00 BMI result Body Mass Index 26.2 Discharge Plan Discharge Patient Disposition: Home, Self-Care Referrals: Physician,Unknown J [Primary Care Provider, Medical] - 1 Week Discharge Medications: New docusate sodium [Colace] 100 mg capsule 100 mg PO BID Qty: 20 0RF oxycodone 5 mg tablet 5 mg PO Q4H PRN (Reason: pain) Qty: 20 0RF Rx Instructions: Partial Fill upon patient request. Continued diazepam 5 mg tablet 5 mg PO BEDTIME tramadol 50 mg tablet 50 mg PO BID PRN (Reason: Pain) montelukast [Singulair] 10 mg tablet 10 mg PO DAILY gabapentin 100 mg capsule 100 mg PO TID duloxetine 60 mg capsule,delayed release(DR/EC) 60 mg PO DAILY hydrochlorothiazide 25 mg tablet 25 mg PO DAILY naproxen [Naprosyn] 500 mg tablet 500 mg PO BID omeprazole 20 mg capsule,delayed release(DR/EC) 20 mg PO DAILY vxuxdsznqz-gwvrxcerrwqjv-viug 50-325-40 mg capsule 1 cap PO Q6H PRN (Reason: migraine headaches) valacyclovir 1 gram tablet 1,000 mg PO TID lisinopril 20 mg tablet 20 mg PO DAILY cholecalciferol (vitamin D3) 50 mcg (2,000 unit) capsule 50 mcg PO DAILY sumatriptan succinate 100 mg tablet See Rx Instructions PO .COMPLEX Rx Instructions: take 1 tab at onset of headache; if no relief, may repeat 1 tab after at least 2 hrs; max = 2 tabs/24 hrs PO albuterol sulfate 90 mcg/actuation HFA aerosol inhaler 1 puff inhalation QID PRN (Reason: Shortness Of Breath Or Wheezing) risperidone 4 mg tablet 4 mg PO DAILY trazodone 100 mg tablet 100 mg PO BID fluticasone propionate 50 mcg/actuation spray,suspension 1 spray intranasal DAILY Spiriva Respimat 1.25 mcg/actuation mist 2 puff inhalation DAILY levothyroxine 25 mcg tablet 25 mcg PO DAILY Discharge Orders: Discharge Order (Routine); Ordered 09/07/24 Ordered By: Amari Goins Diet: Advance to usual diet Activity on Discharge: As tolerated Activity Restrictions/Additional Instructions: After your spinal surgery we ask you to observe the following restrictions/guidelines: Activity: It is normal to feel some discomfort as you increase your activity, but that will improve with time. We ask you avoid heavy lifting or acitivities that cause pain. As a general rule, 8lbs is a safe limit for lifting right after surgery. Walk as much as you feel comfortable but not to exhaustion. You will feel extra tired the first few days after surgery. Stay well hydrated. It is OK to walk up and down stairs You may return to driving when you are off narcotics (such as vicodin, oxycodone, dilaudid, etc), and you are back to normal functional capacity. If you have any concerns please check with office before driving. Return to work is specific to each patient and each surgery, so please speak with your doctor/PA at first follow up. Please bring paperwork such as FMLA at that time if you need it filled out. Medications: For optimum pain control, it is best to start with a combination of 500 mg of Tylenol every 4 hours with 600 mg of Motrin every 8 hours, and use narcotics as needed in between for breakthrough pain. We will give you a short supply of narcotics after surgery (usually one weeks worth). If you need more please call the office but do not use more than pres cribed. You will need to give our office 48 hours notice if you need narcotics refilled and we do not fill narcotics on weekends or evenings. If you are on a narcotic, it is a good idea to take a stool softener such as colace or senna to avoid constipation If you take blood thinner such as aspirin, Plavix, Coumadin, Effient, Eliquis etc for conditions such as Afib, DVT, Pulmonary embolus, coronary disease, stents etc please speak with your surgeon about specific details as to when you can resume these medications. You can resume NSAIDs on post op day 1 (eg: Motrin, Naproxen, etc). Follow up: Please call the office, , after surgery to arrange a 3 week follow up for wound check. Wound Care: You may remove your dressing on the first day after surgery. ?You may ?leave open to air. Please do not remove the steri strips underneath. they will fall off on their own in one week. IT IS NORMAL FOR THE WOUND TO OOZE OR BE BLOODY FOR A FEW DAYS AFTER SURGERY. ?IF THIS HAPPENS JUST PLACE NEW DRESSING OVER IT TO AVOID STAINING CLOTHES. You may shower on post op day # 1 We ask that you do not let the water soak the wound. If it does get wet, just towel dry lightly. Please do not scrub your incision or place any type of chemical/ointment on the wound. No tub baths, pools or jacuzzis for one month. If you have any leaking or redness from your wound, or fevers, please call office Print Language: Estonian
--- NOTE | 2024-09-07 12:37 | W.PM.OPN ---
Operative Note Operative Note Date of Service: 09/07/24 Narrative: Preoperative Diagnosis: Spinal stenosis/lateral recess stenosis/neural foraminal stenosis Operation: Right L4 Laminotomy, Partial facetectomy and foraminotomy with use of microscope Consent Informed Consent was obtained for this operation. I have explained the nature, purpose and benefits of the operation. I have discussed the risks and benefit of the operation including possible complications or adverse events with patient/family. Alternative(s) were discussed with the patient with their relative benefits and risks as well as the consequences of not accepting the operation were included in obtaining consent. Surgeon: MAE GOOD MD, PHD Procedure Assisted By: sly Berry Description of Procedure This patient is suffering from a right lumbar radiculopathy due to a right L4 neuroforaminal stenosis. The patient was offered a decompression of the nervous structures. The procedure complications were explained. The patient was consented. The patient was brought to the operating room and endotracheally intubated. The patient was turned in prone position on the Poli frame. Prep and drape was done followed by timeout. Physician assistant activities director provided access. A mid lumbar incision was made followed by release of the paravertebral muscle on the right side to expose the L4 lamina and facet joint. An intraoperative x-ray was obtained to confirm the correct level. The microscope was brought in. I took over the procedure. The high-speed drill was used to do a L4 laminotomy. #2 Kerrison was used to further remove the lamina towards the L4 foramen. With a nerve hook the medial wall of the L4 pedicle was palpated as well as the beginning of the L4 foramen. The facet joint was partially drilled down after which with a #2 Kerrison a foraminotomy was done. Finally a foraminotomy Kerrison was used to complete the foraminotomy. A long nerve hook could be easily passed lateral and dorsally from the nerve root, a sign of relief of the neuroforaminal stenosis and decompression of the nerve root . The microscope was removed. Hemostasis was done. Incision was closed in 2 layers. Steri-Strips were used to approximate incision. An OpSite with Tegaderm was used to cover the incision. All sponge needle counts were correct. Patient was extubated and transported in stable is to recovery room. Anesthesia: General Estimated Blood Loss (ml): Minimal Duration of Surgery: 45 Minutes Postoperative Plan: Discharge to home
[2024-09-07] MEDS: oxyCODONE HCl Immed Release 5 MG TABLET PO (13:45)
== END 2024-09-07 14:30 | disposition home or self-care (01) ==
PROVIDERS: Visit Provider Neurological Surgery
PROC: (CPT 63047; principal; 2024-09-07 11:40)
DX: M48.062 Spinal stenosis, lumbar region with neurogenic claudication (principal); M54.16 Radiculopathy, lumbar region; J45.909 Unspecified asthma, uncomplicated; I10 Essential (primary) hypertension; M19.90 Unspecified osteoarthritis, unspecified site; K21.9 Gastro-esophageal reflux disease without esophagitis; E03.9 Hypothyroidism, unspecified; F32.A Depression, unspecified; G43.909 Migraine, unspecified, not intractable, without status migrainosus; F41.9 Anxiety disorder, unspecified; Z79.51 Long term (current) use of inhaled steroids; Z98.890 Other specified postprocedural states; Z96.1 Presence of intraocular lens; Z79.899 Other long term (current) drug therapy
CPT/HCPCS: 63047; J0131; J0690; J1100; J1885; J2003; J2371; J2405; J2704; J3010

== ENCOUNTER → 2024-09-07 08:22 | Outpatient (BNV) | payer OTHER, SELFPAY | PROVIDERS: Visit Provider Neurological Surgery | DX: M54.16 Radiculopathy, lumbar region (principal); M48.062 Spinal stenosis, lumbar region with neurogenic claudication | CPT/HCPCS: 63047; 99499 ==

== ENCOUNTER 2024-09-29 08:37 | Outpatient (AMB) | payer OTHER, SELFPAY ==
--- NOTE | 2024-09-29 08:41 | HO.SPINEOV ---
Intake Visit Reasons: 1st post op Intake Note: Mr. Fabian Schmitz is here today for his 1st post op. [employer] Required: Yes [employer] Services: [employer] Present [employer] Name: Yadira Calloway LM Allergies No Known Allergies Allergy (Verified 09/29/24 08:43) Assessment & Plan Assessment & Plan (1) Right lumbar radiculopathy: Code(s): M54.16 - Radiculopathy, lumbar region Category: Medical Plan Operation: Right L4 Laminotomy, Partial facetectomy and foraminotomy Donavon is a pleasant 54-year-old male who comes in today for his 1st postoperative visit after having a right-sided L4 foraminotomy completed by Dr. Yañez. To recap he was initially evaluated in clinic for right-sided leg pain. He reports that his right sided leg pain is much better than it was prior to surgery, but he can still tell he has some degree of pain at baseline in his leg, which does occasionally flare up with increased activity. His significant other accompanied him to this visit today and reported that she had to give him a Gabapentin she had due to a flare up of pain last week, as he is out of Oxycodone. He asked several questions regarding the postoperative healing course, all of which I answered to the best of my ability. He did ask if he is able to take a flight to [place] to see his mother who is recently diagnosed with the cancer. We discussed getting up and walking around before and during the flight to help reduce overall pain. No new neurological deficits. The patient ambulates well and rises from a seated position without much difficulty. He does use a cane for support. His posterior incision site is closed and well healing. I would like to follow up with Donavon again in 6 weeks for his 2nd postop visit. Mejia Yañez MD,PhD [facility] Coding Level of Care Code Global (86923) Diagnoses Right lumbar radiculopathy M54.16
--- OUTSIDE RECORDS SUMMARY | 2024-09-29 08:51 | XMS_ITS | Clinical Summary ---
Author Organization [facility] Address [address] [place] [address] Care Team Providers Care Animal Trainer Name Role Phone Awilda Maldonado DO Primary Care Provider [phone] Social History Tobacco Use Types Packs/Day Years [...] age to complete this topic Care Teams Animal Trainer Relationship Specialty Start Date End Date Awilda Maldonado DO [address] [id number] PCP - General Family Medicine 07/21/19
--- OUTSIDE RECORDS SUMMARY | 2024-09-29 08:52 | XMS_ITS | Patient Health Record ---
[facility] [address] [address] Address [address] [place] [address] Care Team Providers Care Case Management Associate Name Role Phone LENCHO FAITH Unavailable [phone] NIRMAL NORRIS Unavailable [phone] Allergies No Known Allergies Results Component Value Reference Range Notes XR SHOULDER 2+ VIEWS LEFT Reviewed date:07/26/2024 10:59:17 AM Interpretation: Performing Lab: Notes/Report: Note See Note [facility], a member of [facility] Patient Name: ANTHONY REVELES Date of : 1970 Reason for Exam: OTHER Exam Date: 07/26/2024 [id number] EST Report Status: Final Ordering Provider: NIRMAL [...] abnormality is seen. IMPRESSION: Normal examination. Code 93662 -------- FINAL REPOR T -------- Dictated By: Ren Fontenot Dictated Date: 07/26/2024 10:10 ET Assigned Physician: Ren Fontenot Reviewed and Electronically Signed By: Ren Fontenot Signed Date: 10:10 ET Workstation ID: [id number] Transcribed By: Self Edit Transcribed Date: 07/26/2024 10:10 ET FREE T4 CASCADE Reviewed date:12/06/2023 10:57:31 AM Interpretation: Performing Lab: Notes/Report: FREE T4 CASCADE 1.19 0.70-1.80 ng/dL Note [employer], [place] [address] [employer] - Nathaly Coe MD UA WITH CULTURE IF INDICATED Reviewed date:12/06/2023 10:28:07 AM Interpretation: Performing Lab: Notes/Report: Original Ordering Provider: NIRMAL NORRIS NP [employer], a member of [address] [address] [employer] - Nathaly Coe MD GLUCOSE, (UA) NEGATIVE [...] date:12/06/2023 10:12:19 AM Interpretation: Performing Lab: Notes/Report: [employer] - Nathaly Coe MD [address] [place] [address] [employer], a member of [facility] Original Ordering Provider: NIRMAL NORRIS NP WBC 6.5 4.8-10.8 x10-3/uL RBC 4.8 4.5-5.5 [...] Note Original Orderi ng Provider: NIRMAL NORRIS [employer] GLUCOSE 94 70-100 mg/dL Reference range applicable [...] date:12/07/2023 07:58:10 AM Interpretation: Performing Lab: Notes/Report: [employer] - Nathaly Coe MD [address] [place] [id number] [employer], a member of [facility] Original Ordering Provider: NIRMAL NORRIS [employer] GLYCATED HEMOGLOBIN A1C 5.4 <6.5 % ESTIMATED AVERAGE GLUCOSE 108 Reason For Referral Reason [facility] er Pain Mgt Diagnosis 1 Lumbar radiculopathy (M54.16) Referral Organization [facility] Referring Provider First Name LENCHO Referring Provider Last Name VIANNEY Referring Provider Speciality Internal edicine Referred Provider Specialty Pain Medicin e General Notes Alize Guzman 11/30/2023 10:30:37 AM > Referral with attachment faxed, pt given info to call and schedule visit. [facility]. p: [phone] f: [phone] Clinical Notes Helga Monroe 01:35:30 PM > Scheduled for 12/08 at 11 am. Pt is aware Referral Priority Routine Reason [facility] Diagnosis 1 Pain, joint, shoulde r, left (M25.512) Referral Organization [facility] Referring Provider First Name LENCHO Referring Provider Last Name VIANNEY Referring Provider Speciality Internal edicine Referred Provider Specialty Orthopedic S urgery General Notes Elsa Sheehan 08:39:21 AM > Pt given phone [phone] referral faxed to [phone] Referral Priority Routine Reason Enrollment in [employer] pr ogram Diagnosis 1 Memory loss (R41.3) Diagnosis 2 Physical decondition ing (R53.81) Referral Organization [facility] [address] Referring Provider First Name NIRMAL Referring Provider Last Name JR Referring Provider Speciality Internal edicine Referred Provider Specialty Multispecial ty Clinic or Group Practice General Notes [facility] Alma Valdo roca , p: [phone], f: [phone] Referral Priority Routine Medications Medication SIG (Take, [...] a day; Duration: 10 day(s) 04/13/2022 Active traMADol HCl 50 MG 1 tablet as needed Orally twice a day; Duration: 10 days Active hydroCHLOROthiazide 25 MG 1 tablet in th e morning Orally Once a day; Duration: 90 days Active Albuterol Sulfate HFA 108 (9 0 Base) MCG/ACT 1 puff as needed shortness of breath/wheezing Inhalation every 4 hrs; Duration: 30 days 11/24/2022 Active Docmvxozyp-YXMF-Klsfvqeh 50-325-40 MG 1 capsule as needed Orally every 6 hours; Duration: 10 days 03/23/2022 Active Levothyroxine Sodium 25 MCG TAKE 1 TABLE T BY MOUTH EVERY DAY IN THE MORNING ON EMPTY STOMACH FOR 90 DAYS; Duration: 90 Active Vitamin D 50 MCG (2000 UT) [...] Status W/U Status Risk Notes Problem Hypothyroidism (99853026) Other specified hypothyroidism (E03.8) Active confirmed Problem Diabetic retinopathy (4728857) 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) Active confirmed Problem Vitamin D deficiency (51527601) Vitamin D deficiency, unspecified (E55.9) Active confirmed Problem Carpal tunnel syndrome (06318680) Carpal tunnel syndrome, unspecified upper limb (G56.00) Active confirmed Problem Chronic pain (80305871) Other chronic pain (G89.29) Active confirmed Problem Adult health examination (486618421) Encounter for general adult medical examination without abnormal findings (Z00.00) Active confirmed Problem Memory loss (78940798) Memory loss (R41.3) Active confirmed Problem Depressive disorder (disorder) (36473092) Depression, unspecified depression type (F32.9) Active confirmed Problem Hypothyroidism (18643555) Hypothyroidism, unspecified type (E03.9) Active confirmed Problem Sore throat (437552188) Sore throat (J02.9) Active confirmed Problem Rectal pain (62821753) Rectal pain (K62.89) Active confirmed Problem Arthralgia of the upper arm (192169146) Left elbow pain (M25.522) Active confirmed Problem Arthralgia of the pelvic region and thigh (649616978) Hip pain, right (M25.551) Active confirmed Problem Exposure to tuberculosis (3558059945057) Exposure to TB (Z20.1) Active confirmed Problem Essential hypertension (60832657) Hypertension, unspecified type (I10) Active confirmed Problem Lumbar radiculopathy (483698761) Lumbar radiculopathy (M54.16) Active confirmed Problem Ataxia (57764579) Ataxia (R27.0) Active confirm ed Problem Displacement of lumbar intervertebral disc without myelopathy (86058570) Herniated intervertebral disc of lumbar spine (M51.26) Active confirmed Problem Mixed hyperlipidemia (116710616) Combined hyperlipidemia (E78.2) Active confirmed Problem Migraine aura without headache (516467697) 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) Active confirmed Problem Depressive disorder (disorder) (93617401) Depression, unspecified depression type (F32.A) Active confirmed Problem Avitaminosis D (00911602) Avitaminosis D (E55.9) Active confirmed Problem Mild major depression (97282481) 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) Active confirmed Vital Signs Heart Rate 79 /min 07/26/2024 Oximetry 99 % 07/26/2024 Blood pressure diastolic 84 mm Hg 07/26/2024 Height 66 in 07/26/2024 Blood pressure systolic 138 mm Hg 07/26/2024 Weight 164 lbs 07/26/2024 BMI 26.47 kg/m2 07/26/2024 Encounters Encounter Location Date Provider Diagnosis [facility] [address] [address] 11/30/2023 NIRMAL NORRIS Annual physical exam Z00.00 ; Encounter for screening for other disorder Z13.89 ; Encounter for screening for depression Z13.31 ; Hypertension, unspecified type I10 ; Lumbar radiculopathy M54.16 ; Hip pain, right M25.551 ; Combined hyperlipidemia E78.2 ; Dorsalgia, unspecified M54.9 ; Herniated intervertebral disc of lumbar spine M51.26 and Mild major depression F32.0 [facility] [address] [address] 03/28/2024 NIRMAL NORRIS Hypertension, unspec ified type I10 ; Lumbar radiculopathy M54.16 ; Hip pain, right M25.551 ; Combined hyperlipidemia E78.2 ; Dorsalgia, unspecified M54.9 ; Herniated intervertebral disc of lumbar spine M51.26 and Mild major depression F32.0 [facility] [address] [address] 07/26/2024 NIRMAL NORRIS Hypertension, unspec ified type I10 ; Lumbar radiculopathy M54.16 ; Hip pain, right M25.551 ; Combined hyperlipidemia E78.2 ; Dorsalgia, unspecified M54.9 ; Herniated intervertebral disc of lumbar spine M51.26 ; Mild major depression F32.0 ; Other chronic pain G89.29 ; Encounter for examination of blood pressure without abnormal findings Z01.30 and Pain, joint, shoulder, left M25.512 [facility] [address] [address] 11/30/2023 LENCHO FAITH [facility] [address] [address] 03/06/2024 NIRMAL BORHOT [facility] [address] [facility] [address] [address] 03/07/20[address] [facility] [address] [place] [address] 07/25/2024 NIRMAL BORHOT [facility] [address] [address] 07/26/2024 LENCHO FAITH [facility] [address] [address] 09/13/2024 NIRMAL BORHOT [facility] [address] [address] 09/14/2024 NIRMAL BORHOT Assessments Encounter Date Diagnosis (ICD Code) Assessment Notes Treatment Notes Treatment Clinical Notes Section Notes 11/30/2023 Annual physical exam (ICD-10 - Z00.00) Patient is here for [facility] Acute Concerns/Problem List: 11/30/2023 Chronic conditions discussed. _update labs please Referral to [facility] MOLST/HCP Discussed and Filed Of note, some information is being carried forward from prior records for informational purposes only and is being cited so that efficiency, safety and quality of the patient's care is not compromised This note was prepared using voice recognition software and direct typing Please excuse inadvertent fire and explosion investigator or typing errors, or uncorrected word substitutions Although every attempt has been made by the provider to proofread this document, occasional misspellings and typographical errors may still be present Due to the previous pandemic, and the use of personal protective equipment (PPE) This may decrease voice recognition accuracy Inadvertent fire and explosion investigator errors may occur 03/28/2024 Hypertension, unspecified type (ICD-10 - I10) Acute Concerns/Problem List: 03/28/2024 Chronic conditions discussed. I have given him Nurtec samples Referral to [facility], Patient to follow-up Labs reviewed Of note, some information is being carried forward from prior records for informational purposes only and is being cited so that efficiency, safety and quality of the patient's care is not compromised This note was prepared using voice recognition software and direct typing Please excuse inadvertent fire and explosion investigator or typing errors, or uncorrected word substitutions Although every attempt has been made by the provider to proofread this document, occasional misspellings and typographical errors may still be present Due to the previous pandemic, and the use of personal protective equipment (PPE) This may decrease voice recognition accuracy Inadvertent fire and explosion investigator errors may occur 07/26/2024 Hypertension, unspecified type (ICD-10 - I10) Acute Concerns/Problem List: 07/26/2024 Left shoulder films and orthopedics, I suspect OA or calcific tendinitis May benefit from steroid injections Lets request [facility] notes _update labs and Medicare visit in the fall Of note, some information is being carried forward from prior records for informational purposes only and is being cited so that efficiency, safety and quality of the patient's care is not compromised This note was prepared using voice recognition software and direct typing Please excuse inadvertent fire and explosion investigator or typing errors, or uncorrected word substitutions Although every attempt has been made by the provider to proofread this document, occasional misspellings and typographical errors may still be present Due to the previous pandemic, and the use of personal protective equipment (PPE) This may decrease voice recognition accuracy Inadvertent fire and explosion investigator errors may occur 07/26/2024 Lumbar radiculopathy (ICD-10 - M54.16) Acute Concerns/Problem List: 07/26/2024 Left shoulder films and orthopedics, I suspect OA or calcific tendinitis May benefit from steroid injections Lets request [facility] notes _update labs and Medicare visit in the fall Of note, some information is being carried forward from prior records for informational purposes only and is being cited so that efficiency, safety and quality of the patient's care is not compromised This note was prepared using voice recognition software and direct typing Please excuse inadvertent fire and explosion investigator or typing errors, or uncorrected word substitutions Although every attempt has been made by the provider to proofread this document, occasional misspellings and typographical errors may still be present Due to the previous pandemic, and the use of personal protective equipment (PPE) This may decrease voice recognition accuracy Inadvertent fire and explosion investigator errors may occur 03/28/2024 Lumbar radiculopathy (ICD-10 - M54.16) Acute Concerns/Problem List: 03/28/2024 Chronic conditions discussed. I have given him Nurtec samples Referral to [facility], Patient to follow-up Labs reviewed Of note, some information is being carried forward from prior records for informational purposes only and is being cited so that efficiency, safety and quality of the patient's care is not compromised This note was prepared using voice recognition software and direct typing Please excuse inadvertent fire and explosion investigator or typing errors, or uncorrected word substitutions Although every attempt has been made by the provider to proofread this document, occasional misspellings and typographical errors may still be present Due to the previous pandemic, and the use of personal protective equipment (PPE) This may decrease voice recognition accuracy Inadvertent fire and explosion investigator errors may occur 11/30/2023 Encounter for screening for other disorder (ICD-10 - Z13.89) Patient is here for [facility] Acute Concerns/Problem List: 11/30/2023 Chronic conditions discussed. _update labs please Referral to [facility] MOLST/HCP Discussed and Filed Of note, some information is being carried forward from prior records for informational purposes only and is being cited so that efficiency, safety and quality of the patient's care is not compromised This note was prepared using voice recognition software and direct typing Please excuse inadvertent fire and explosion investigator or typing errors, or uncorrected word substitutions Although every attempt has been made by the provider to proofread this document, occasional misspellings and typographical errors may still be present Due to the previous pandemic, and the use of personal protective equipment (PPE) This may decrease voice recognition accuracy Inadvertent fire and explosion investigator errors may occur 11/30/2023 Encounter for screening for depression (ICD-10 - Z13.31) Patient is here for [facility] Acute Concerns/Problem List: 11/30/2023 Chronic conditions discussed. _update labs please Referral to [facility] MOLST/HCP Discussed and Filed Of note, some information is being carried forward from prior records for informational purposes only and is being cited so that efficiency, safety and quality of the patient's care is not compromised This note was prepared using voice recognition software and direct typing Please excuse inadvertent fire and explosion investigator or typing errors, or uncorrected word substitutions Although every attempt has been made by the provider to proofread this document, occasional misspellings and typographical errors may still be present Due to the previous pandemic, and the use of personal protective equipment (PPE) This may decrease voice recognition accuracy Inadvertent fire and explosion investigator errors may occur 03/28/2024 Hip pain, right (ICD-10 - M25.551) Acute Concerns/Problem List: 03/28/2024 Chronic conditions discussed. [facility], Patient to follow-up Labs reviewed Of note, some information is being carried forward from prior records for informational purposes only and is being cited so that efficiency, safety and quality of the patient's care is not compromised This note was prepared using voice recognition software and direct typing Please excuse inadvertent fire and explosion investigator or typing errors, or uncorrected word substitutions Although every attempt has been made by the provider to proofread this document, occasional misspellings and typographical errors may still be present Due to the previous pandemic, and the use of personal protective equipment (PPE) This may decrease voice recognition accuracy Inadvertent fire and explosion investigator errors may occur 07/26/2024 Hip pain, right (ICD-10 - M25.551) Acute Concerns/Problem List: 07/26/2024 Left shoulder films and orthopedics, I suspect OA or calcific tendinitis May benefit from steroid injections Lets request [facility] notes _update labs and Medicare visit in the fall Of note, some information is being carried forward from prior records for informational purposes only and is being cited so that efficiency, safety and quality of the patient's care is not compromised This note was prepared using voice recognition software and direct typing Please excuse inadvertent fire and explosion investigator or typing errors, or uncorrected word substitutions Although every attempt has been made by the provider to proofread this document, occasional misspellings and typographical errors may still be present Due to the previous pandemic, and the use of personal protective equipment (PPE) This may decrease voice recognition accuracy Inadvertent fire and explosion investigator errors may occur 07/26/2024 Combined hyperlipidemia (ICD-10 - E78.2) Acute Concerns/Problem List: 07/26/2024 Left shoulder films and orthopedics, I suspect OA or calcific tendinitis May benefit from steroid injections Lets request [facility] notes _update labs and Medicare visit in the fall Of note, some information is being carried forward from prior records for informational purposes only and is being cited so that efficiency, safety and quality of the patient's care is not compromised This note was prepared using voice recognition software and direct typing Please excuse inadvertent fire and explosion investigator or typing errors, or uncorrected word substitutions Although every attempt has been made by the provider to proofread this document, occasional misspellings and typographical errors may still be present Due to the previous pandemic, and the use of personal protective equipment (PPE) This may decrease voice recognition accuracy Inadvertent fire and explosion investigator errors may occur 11/30/2023 Hypertension, unspecified type (ICD-10 - I10) Patient is here for [facility] Acute Concerns/Problem List: 11/30/2023 Chronic conditions discussed. _update labs please Referral to [facility] MOLST/HCP Discussed and Filed Of note, some information is being carried forward from prior records for informational purposes only and is being cited so that efficiency, safety and quality of the patient's care is not compromised This note was prepared using voice recognition software and direct typing Please excuse inadvertent fire and explosion investigator or typing errors, or uncorrected word substitutions Although every attempt has been made by the provider to proofread this document, occasional misspellings and typographical errors may still be present Due to the previous pandemic, and the use of personal protective equipment (PPE) This may decrease voice recognition accuracy Inadvertent fire and explosion investigator errors may occur 03/28/2024 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 I have given him Nurtec samples Referral to [facility], Patient to follow-up Labs reviewed Of note, some information is being carried forward from prior records for informational purposes only and is being cited so that efficiency, safety and quality of the patient's care is not compromised This note was prepared using voice recognition software and direct typing Please excuse inadvertent fire and explosion investigator or typing errors, or uncorrected word substitutions Although every attempt has been made by the provider to proofread this document, occasional misspellings and typographical errors may still be present Due to the previous pandemic, and the use of personal protective equipment (PPE) This may decrease voice recognition accuracy Inadvertent fire and explosion investigator errors may occur 07/26/2024 Dorsalgia, unspecified (ICD-10 - M54.9) Acute Concerns/Problem List: 07/26/2024 Left shoulder films and orthopedics, I suspect OA or calcific tendinitis May benefit from steroid injections Lets request [facility] notes _update labs and Medicare visit in the fall Of note, some information is being carried forward from prior records for informational purposes only and is being cited so that efficiency, safety and quality of the patient's care is not compromised This note was prepared using voice recognition software and direct typing Please excuse inadvertent fire and explosion investigator or typing errors, or uncorrected word substitutions Although every attempt has been made by the provider to proofread this document, occasional misspellings and typographical errors may still be present Due to the previous pandemic, and the use of personal protective equipment (PPE) This may decrease voice recognition accuracy Inadvertent fire and explosion investigator errors may occur 11/30/2023 Lumbar radiculopathy (ICD-10 - M54.16) [facility] Concerns/Problem List: 11/30/2023 Chronic conditions discussed. _update labs please Referral to [facility] MOLST/HCP Discussed and Filed Of note, some information is being carried forward from prior records for informational purposes only and is being cited so that efficiency, safety and quality of the patient's care is not compromised This note was prepared using voice recognition software and direct typing Please excuse inadvertent fire and explosion investigator or typing errors, or uncorrected word substitutions Although every attempt has been made by the provider to proofread this document, occasional misspellings and typographical errors may still be present Due to the previous pandemic, and the use of personal protective equipment (PPE) This may decrease voice recognition accuracy Inadvertent fire and explosion investigator errors may occur 03/28/2024 Dorsalgia, unspecified (ICD-10 - M54.9) Acute Concerns/Problem List: 03/28/2024 Chronic conditions discussed. [facility], Patient to follow-up Labs reviewed Of note, some information is being carried forward from prior records for informational purposes only and is being cited so that efficiency, safety and quality of the patient's care is not compromised This note was prepared using voice recognition software and direct typing Please excuse inadvertent fire and explosion investigator or typing errors, or uncorrected word substitutions Although every attempt has been made by the provider to proofread this document, occasional misspellings and typographical errors may still be present Due to the previous pandemic, and the use of personal protective equipment (PPE) This may decrease voice recognition accuracy Inadvertent fire and explosion investigator errors may occur 11/30/2023 Hip pain, right (ICD-10 - M25.551) Patient is here for [facility] Acute Concerns/Problem List: 11/30/2023 Chronic conditions discussed. _update labs please Referral to [facility] MOLST/HCP Discussed and Filed Of note, some information is being carried forward from prior records for informational purposes only and is being cited so that efficiency, safety and quality of the patient's care is not compromised This note was prepared using voice recognition software and direct typing Please excuse inadvertent fire and explosion investigator or typing errors, or uncorrected word substitutions Although every attempt has been made by the provider to proofread this document, occasional misspellings and typographical errors may still be present Due to the previous pandemic, and the use of personal protective equipment (PPE) This may decrease voice recognition accuracy Inadvertent fire and explosion investigator errors may occur 07/26/2024 Herniated intervertebral disc of lumbar spine (ICD-10 - M51.26) Acute Concerns/Problem List: 07/26/2024 Left shoulder films and orthopedics, I suspect OA or calcific tendinitis May benefit from steroid injections Lets request [facility] notes _update labs and Medicare visit in the fall Of note, some information is being carried forward from prior records for informational purposes only and is being cited so that efficiency, safety and quality of the patient's care is not compromised This note was prepared using voice recognition software and direct typing Please excuse inadvertent fire and explosion investigator or typing errors, or uncorrected word substitutions Although every attempt has been made by the provider to proofread this document, occasional misspellings and typographical errors may still be present Due to the previous pandemic, and the use of personal protective equipment (PPE) This may decrease voice recognition accuracy Inadvertent fire and explosion investigator errors may occur 03/28/2024 Herniated intervertebral disc of lumbar spine (ICD-10 - M51.26) Acute Concerns/Problem List: 03/28/2024 Chronic conditions discussed. I have given him [employer]ur[employer] samples Referral to [facility], Patient to follow-up Labs reviewed Of note, some information is being carried forward from prior records for informational purposes only and is being cited so that efficiency, safety and quality of the patient's care is not compromised This note was prepared using voice recognition software and direct typing Please excuse inadvertent fire and explosion investigator or typing errors, or uncorrected word substitutions Although every attempt has been made by the provider to proofread this document, occasional misspellings and typographical errors may still be present Due to the previous pandemic, and the use of personal protective equipment (PPE) This may decrease voice recognition accuracy Inadvertent fire and explosion investigator errors may occur 03/28/2024 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 [facility], Patient to follow-up Labs reviewed Of note, some information is being carried forward from prior records for informational purposes only and is being cited so that efficiency, safety and quality of the patient's care is not compromised This note was prepared using voice recognition software and direct typing Please excuse inadvertent fire and explosion investigator or typing errors, or uncorrected word substitutions Although every attempt has been made by the provider to proofread this document, occasional misspellings and typographical errors may still be present Due to the previous pandemic, and the use of personal protective equipment (PPE) This may decrease voice recognition accuracy Inadvertent fire and explosion investigator errors may occur 11/30/2023 Combined hyperlipidemia (ICD-10 - E78.2) Patient is here for [facility] Acute Concerns/Problem List: 11/30/2023 Chronic conditions discussed. _update labs please Referral to [facility] MOLST/HCP Discussed and Filed Of note, some information is being carried forward from prior records for informational purposes only and is being cited so that efficiency, safety and quality of the patient's care is not compromised This note was prepared using voice recognition software and direct typing Please excuse inadvertent fire and explosion investigator or typing errors, or uncorrected word substitutions Although every attempt has been made by the provider to proofread this document, occasional misspellings and typographical errors may still be present Due to the previous pandemic, and the use of personal protective equipment (PPE) This may decrease voice recognition accuracy Inadvertent fire and explosion investigator errors may occur 07/26/2024 Mild major depression (ICD-10 - F32.0) Acute Concerns/Problem List: 07/26/2024 Left shoulder films and orthopedics, I suspect OA or calcific tendinitis May benefit from steroid injections Lets request [facility] notes _update labs and Medicare visit in the fall Of note, some information is being carried forward from prior records for informational purposes only and is being cited so that efficiency, safety and quality of the patient's care is not compromised This note was prepared using voice recognition software and direct typing Please excuse inadvertent fire and explosion investigator or typing errors, or uncorrected word substitutions Although every attempt has been made by the provider to proofread this document, occasional misspellings and typographical errors may still be present Due to the previous pandemic, and the use of personal protective equipment (PPE) This may decrease voice recognition accuracy Inadvertent fire and explosion investigator errors may occur 07/26/2024 Other chronic pain (ICD-10 - G89.29) Acute Concerns/Problem List: 07/26/2024 Left shoulder films and orthopedics, I suspect OA or calcific tendinitis May benefit from steroid injections Lets request [facility] notes _update labs and Medicare visit in the fall Of note, some information is being carried forward from prior records for informational purposes only and is being cited so that efficiency, safety and quality of the patient's care is not compromised This note was prepared using voice recognition software and direct typing Please excuse inadvertent fire and explosion investigator or typing errors, or uncorrected word substitutions Although every attempt has been made by the provider to proofread this document, occasional misspellings and typographical errors may still be present Due to the previous pandemic, and the use of personal protective equipment (PPE) This may decrease voice recognition accuracy Inadvertent fire and explosion investigator errors may occur 11/30/2023 Dorsalgia, unspecified (ICD-10 - M54.9) Patient is here for [facility] Acute Concerns/Problem List: 11/30/2023 Chronic conditions discussed. _update labs please Referral to [facility] MOLST/HCP Discussed and Filed Of note, some information is being carried forward from prior records for informational purposes only and is being cited so that efficiency, safety and quality of the patient's care is not compromised This note was prepared using voice recognition software and direct typing Please excuse inadvertent fire and explosion investigator or typing errors, or uncorrected word substitutions Although every attempt has been made by the provider to proofread this document, occasional misspellings and typographical errors may still be present Due to the previous pandemic, and the use of personal protective equipment (PPE) This may decrease voice recognition accuracy Inadvertent fire and explosion investigator errors may occur 07/26/2024 Encounter for examination of blood pressure without abnormal findings (ICD-10 - Z01.30) Acute Concerns/Problem List: 07/26/2024 Left shoulder films and orthopedics, I suspect OA or calcific tendinitis May benefit from steroid injections Lets request [facility] notes _update labs and Medicare visit in the fall Of note, some information is being carried forward from prior records for informational purposes only and is being cited so that efficiency, safety and quality of the patient's care is not compromised This note was prepared using voice recognition software and direct typing Please excuse inadvertent fire and explosion investigator or typing errors, or uncorrected word substitutions Although every attempt has been made by the provider to proofread this document, occasional misspellings and typographical errors may still be present Due to the previous pandemic, and the use of personal protective equipment (PPE) This may decrease voice recognition accuracy Inadvertent fire and explosion investigator errors may occur 11/30/2023 Herniated intervertebral disc of lumbar spine (ICD-10 - M51.26) Patient is here for [facility] Acute Concerns/Problem List: 11/30/2023 Chronic conditions discussed. _update labs please Referral to [facility] MOLST/HCP Discussed and Filed Of note, some information is being carried forward from prior records for informational purposes only and is being cited so that efficiency, safety and quality of the patient's care is not compromised This note was prepared using voice recognition software and direct typing Please excuse inadvertent fire and explosion investigator or typing errors, or uncorrected word substitutions Although every attempt has been made by the provider to proofread this document, occasional misspellings and typographical errors may still be present Due to the previous pandemic, and the use of personal protective equipment (PPE) This may decrease voice recognition accuracy Inadvertent fire and explosion investigator errors may occur 11/30/2023 Mild major depression (ICD-10 - F32.0) Patient is here for [facility] Acute Concerns/Problem List: 11/30/2023 Chronic conditions discussed. _update labs please Referral to [facility] MOLST/HCP Discussed and Filed Of note, some information is being carried forward from prior records for informational purposes only and is being cited so that efficiency, safety and quality of the patient's care is not compromised This note was prepared using voice recognition software and direct typing Please excuse inadvertent fire and explosion investigator or typing errors, or uncorrected word substitutions Although every attempt has been made by the provider to proofread this document, occasional misspellings and typographical errors may still be present Due to the previous pandemic, and the use of personal protective equipment (PPE) This may decrease voice recognition accuracy Inadvertent fire and explosion investigator errors may occur 07/26/2024 Pain, joint, shoulder, left (ICD-10 - M25.512) Acute Concerns/Problem List: 07/26/2024 Left shoulder films and orthopedics, I suspect OA or calcific tendinitis May benefit from steroid injections Lets request [facility] notes _update labs and Medicare visit in the fall Of note, some information is being carried forward from prior records for informational purposes only and is being cited so that efficiency, safety and quality of the patient's care is not compromised This note was prepared using voice recognition software and direct typing Please excuse inadvertent fire and explosion investigator or typing errors, or uncorrected word substitutions Although every attempt has been made by the provider to proofread this document, occasional misspellings and typographical errors may still be present Due to the previous pandemic, and the use of personal protective equipment (PPE) This may decrease voice recognition accuracy Inadvertent fire and explosion investigator errors may occur Plan Of Treatment Pending [...] 11/21/2022 Next Appt Details Provider Name:NIRMAL NORRIS, 11/28/2024 09:00:00 AM, [address] [place] [address], [phone], Insurance Providers Payer Name Payer Address Payer Phone Subscriber Number Group Number Insured Name Patient Relationship to Insured Coverage Start Date Coverage End Date [employer] or Options [address] [place] [id number] ANTHONY LAND Self - patient is the insured Medical (General) History Medical History History ICD Code hypertension asthma seasonal allergies hemorrhoids thyroid disease Arthritis anxiety depression Surgical History Surgery Date(Month/Year) inguinal hernia repair
--- OUTSIDE RECORDS SUMMARY | 2024-09-29 08:52 | XMS_ITS | Clinical Summary ---
Author Organization [facility] Address [address] [place] [address] Phone Care Team Providers Care [employer] Name Role Phone Rishabh Margy Flores NP Primary Care Provider [phone] Allergies No known active allergies Medications albuterol HFA (PROAIR HFA ; PROVENTIL HFA ; VENTOLIN HFA) 90 mcg/actuation inhaler INHALE 1 PUFF BY MOUTH EVERY 4 HOURS NEEDED FOR SHORTNESS OF BREATH OR WHEEZING Active benztropine (COGENTIN) 1 mg tablet Take 1 tablet (1 mg total) by mouth 1 (one) time each day in the morning. Active cetirizine (ZyrTEC) 10 mg tablet Take 1 tablet (10 mg total) by mouth at bedtime. 5 Active cholecalciferol (VITAMIN D-3) 50 mcg (2,000 unit) capsule Take 1 capsule (2,000 Units total) by mouth 1 (one) time each day. Active diazePAM (VALIUM) 5 mg tablet Take 1 tablet (5 mg total) by mouth. at bedtime 5 Active DULoxetine (CYMBALTA) [address] capsule Take 1 capsule (60 mg total) by mouth 1 (one) time each day. for 90 days Active fluticasone-dolly meterol (ADVAIR DISKUS) 250-50 mcg/dose diskus inhaler Inhale 1 puff by mouth 2 (two) times a day. Active fluticasone propionate (FLONASE) 50 mcg/actuation nasal spray 2 SPRAYS EACH NOSTRILIN THE EVENING 5 Active fluticasone-ume clidinium-vilan terol (TRELEGY ELLIPTA) 200-62.5-25 mcg inhaler Inhale 1 puff (200 mcg total) by mouth 1 (one) time each day. 3 Active gabapentin (NEURONTIN) 300 mg capsule Take 1 capsule (300 mg total) by mouth. Active gabapentin (NEURONTIN) 100 mg capsule Take 1 capsule (100 mg total) by mouth. 5 Active hydroCHLOROthia zide (HYDRODIURIL) 25 mg tablet Take 1 tablet (25 mg total) by mouth 1 (one) time each day in the morning. Active levothyroxine (SYNTHROID, LEVOTHROID) 25 mcg tablet Take 1 tablet (25 mcg total) by mouth 1 (one) time each day before breakfast. 1 Active lisinopriL (PRINIVIL,ZESTR IL) 20 mg tablet Take 1 tablet (20 mg total) by mouth 1 (one) time each day. Active traZODone (DESYREL) 100 mg tablet Take 2 tablets (200 mg total) by mouth. Active risperiDONE (RisperDAL) 1 mg tablet Take 1 tablet (1 mg total) by mouth 1 (one) time each day in the morning. Active omeprazole (PriLOSEC) [address] capsule 1 (one) time each day at the same time. Active naproxen (NAPROSYN) 500 mg tablet Take 1 tablet (500 mg total) by mouth 2 (two) times a day. 60 each 5 09/30/19 25 Active Encounters Date Type Department Care Team Description 08/30/2024 2:00 PM EDT Consult Orthopedic Surgery - [place] [address] [facility] [address] [place] [id number] Estevan Hylton MD Arthritis of left acromioclavicular joint (Primary Dx); Pain in left shoulder; Rotator cuff tendinitis, left; Impingement of left shoulder 07/26/2024 9:55 AM EDT - 07/26/2024 11:59 PM EDT Hospital Encounter [facility] Xray [address] [place] [id number] Pain in left shoulder Discharge Disposition: Home [...] - Inhaled Oxygen Concentration - - Weight 72.6 kg (160 lb) 08/30/2024 2:04 PM EDT Height 167.6 cm (5' 6 ) 08/30/2024 2:04 PM EDT Body Mass Index 25.82 08/30/2024 2:04 PM EDT Plan of Treatment Upcoming Encounters Date Type Department Care Team (Late st Contact Info) Description 12/11/2024 8:30 AM EST Office Visit Pulmonolgy - [place] [address] [id number] Aiyana Gale MD [address] [address] Health Maintenance Due Date Last Done Comments Diabetes: Annual GFR (Glomerular Filtration Rate) 1968 Diabetes: Annual Foot Exam 1978 Diabetes: Annual Retina Eye Exam 1978 Hepatitis B Vaccines (1 of 3 - 19+ 3-dose series) 04/20/1987 Pneumococcal Vaccine: 50+ Years (1 of 2 - PCV) 04/20/1987 Zoster Vaccines (1 of 2) 2018 Cholesterol Screening (Lipid Panel) 01/17/2022 Colorectal Cancer Screening: Colonoscopy 01/17/2022 HIV Screening 01/17/2022 Hepatitis C Screening 01/17/2022 Social Influencers of Health Screening 01/17/2022 COVID-19 Vaccine ( season) 2023 10/15/2021, 12/13/2020, 05/18/2020, Additional history exists Depression Screening 02/09/2024 Hypertension/CHF/CAD Annual BMP Blood Test 05/16/2024 Diabetes: [...] 07/26/2024 10:10 AM EDT Normal examination. Code 47543 -------- FINAL REPORT -------- Dictated By: Ren Fontenot Dictated Date: 07/26/2024 10:10 ET Assigned Physician: Ren Fontenot Reviewed and Electronically Signed By: Ren Fontenot Signed Date: 07/26/2024 10:10 ET Workstation ID: [id number] Transcribed By: Self Edit Transcribed Date: 07/26/2024 [...] tissue abnormality isseen. IMPRESSION: Normal examination. Code 29697 -------- FINAL REPORT -------- Dictated By: Ren Fontenot Dictated Date: 07/26/2024 10:10 ET Assigned Physician: Ren Fontenot Reviewed and Electronically Signed By: Ren Fontenot Signed Date: 07/26/2024 10:10 ET Workstation ID: [id number] Transcribed By: Self Edit Transcribed Date: 07/26/2024 10:10 ET us Margy Keating [employer] IMG XR PROCEDURES Final Resul t from Last 3 Months Insurance [facility] Member Subscriber Plan / Payer (Ef fective 2018-Present) Name:DONAVON MELISSA Relation to Subscriber:Self Name:Donavon Sprague Payer ID:[id number] Group ID:[id number] Type:Not on file Address: [address] [place] [address] Care Teams [employer] Teacher Relationship Specialty Start Date End Date Margy Keating NP [address] [address] PCP - General Nurse Practitioner 08/30/24
== END 2024-09-29 09:13 | disposition home or self-care (01) ==
LOC: HO.HNS 08:37
PROVIDERS: Visit Provider Physician Assistant
DX: M54.16 Radiculopathy, lumbar region (principal)
CPT/HCPCS: 99024

== ENCOUNTER → 2024-09-29 08:37 | Outpatient (BNVA) | payer OTHER, SELFPAY | PROVIDERS: Visit Provider Physician Assistant | DX: M54.16 Radiculopathy, lumbar region (principal) | CPT/HCPCS: 99212 ==

== ENCOUNTER 2024-11-09 08:55 | Outpatient (AMB) | payer OTHER, SELFPAY ==
--- NOTE | 2024-11-09 08:58 | A.SPINEOV_ITS ---
Intake Visit Reasons: 2nd post op Intake Note: Mr. Fabian Schmitz is here today for his 2nd post op. Coding Support Specialist Required: Yes Coding Support Specialist Services: Coding Support Specialist Present Coding Support Specialist Name: Yadira Calloway LM Allergies No Known Allergies Allergy (Verified 09/29/24 08:43) Assessment & Plan Assessment & Plan (1) Right leg weakness: Code(s): R29.898 - Other symptoms and signs involving the musculoskeletal system Category: Medical Plan Operation: Right L4 Laminotomy, Partial facetectomy and foraminotomy Donavon is a pleasant 54-year-old male who comes in today for his 2nd postoperative visit after having a right-sided L4 foraminotomy completed by Dr. Yañez. To recap he was initially evaluated in clinic for right-sided leg pain. Today he reports overall good resolution of his preoperative pain, but does report some persistent feeling of weakness/low-grade dull pain in his right anterior thigh. We discussed how this may be related to deconditioning prior to surgery. He does not have shooting pains down this leg just dull pain in his thigh. We discussed the postoperative healing course, and he is amenable to going for a course of physical therapy. No new neurological deficits. The patient ambulates well and rises from a seated position without much difficulty. He does use a cane for support. I would like to follow up with Donavon again after he completes physical therapy. I think with proper PT he can overcome the muscular pain / deconditioning and will have resolution of symptoms as a result. Mejia Yañez MD,PhD [facility] Orders: Orders PT Evaluation and Treatment Today R29.898 - Other symptoms and signs involving the musculoskeletal system Coding Level of Care Code Global (79443) Diagnoses Right leg weakness R29.898
--- OUTSIDE RECORDS SUMMARY | 2024-11-09 09:32 | XMS_ITS | Patient Health Record ---
Author Organization [facility] [address] Address [address] [place] [address] Care Team Providers Care Waste/Materials Exchange Specialist Name Role Phone LENCHO FAITH Unavailable [phone] NIRMAL NORRIS Unavailable [phone] Allergies No Known Allergies Results Component Value Reference Range Notes FREE T4 CASCADE Reviewed date:12/06/2023 10:57:31 AM Interpretation: Performing Lab: Notes/Report: FREE T4 CASCADE 1.19 0.70-1.80 ng/dL Note [employer], [place] [address] [employer] - Nathaly Coe MD UA WITH CULTURE IF INDICATED Reviewed date:12/06/2023 10:28:07 AM Interpretation: Performing Lab: Notes/Report: Original Ordering Provider: NIRMAL NORRIS NP [employer] [address] [employer] - Nathaly Coe MD GLUCOSE, (UA) NEGATIVE [...] Notes/Report: Original Ordering Provider: NIRMAL NORRIS NP [employer] [address] [employer] - Nathaly Coe MD WBC 6.5 4.8-10.8 [...] Note Original Orderi ng Provider: NIRMAL NORRIS ARBORICULTURIST GLUCOSE 94 70-100 mg/dL Reference range applicable [...] date:12/07/2023 07:58:10 AM Interpretation: Performing Lab: Notes/Report: Original Ordering Provider: NIRMAL NORRIS NP [employer] [address] [employer] - Nathaly Coe MD GLYCATED HEMOGLOBIN A1C 5.4 <6.5 % ESTIMATED AVERAGE GLUCOSE 108 XR SHOULDER 2+ VIEWS LEFT Reviewed date:07/26/2024 10:59:17 AM Interpretation: Performing Lab: Notes/Report: Note See Note [facility], a member of [facility] Patient Name: ANTHONY REVELES Date of : 1970 Reason for Exam: OTHER Exam Date: 07/26/2024 [id number] EST Report Status: Final Ordering Provider: NIRMAL [...] abnormality is seen. IMPRESSION: Normal examination. Code 87820 -------- FINAL REPOR T -------- Dictated By: Ren Fontenot Dictated Date: 07/26/2024 10:10 ET Assigned Physician: Ren Fontenot Reviewed and Electronically Signed By: Ren Fontenot Signed Date: 025 10:10 ET Workstation ID: [id number] Transcribed By: Self Edit Transcribed Date: 07/26/2024 10:10 ET Reason For Referral Reason [facility] Diagnosis 1 Lumbar radiculopathy (M54.16) Referral Organization [facility] Referring Provider First Name LENCHO Referring Provider Last Name VIANNEY Referring Provider Speciality Internal edicine Referred Provider Specialty Pain Medicin e General Notes Alize Guzman 11/30/2023 10:30:37 AM > Referral with attachment faxed, pt given info to call and schedule visit. [facility]. p: [phone] f: [phone] Clinical Notes Helga Monroe 01:35:30 PM > Scheduled for 12/08 at 11 am. Pt is aware Referral Priority Routine Reason [facility] Diagnosis 1 Pain, joint, shoulde r, left (M25.512) Referral Organization [facility] Referring Provider First Name LENCHO Referring Provider Last Name VIANNEY Referring Provider Speciality Internal edicine Referred Provider Specialty Orthopedic S urgery General Notes Elsa Sheehan 08:39:21 AM > Pt given phone [phone] referral faxed to [phone] Referral Priority Routine Reason Enrollment in [employer] pr ogram Diagnosis 1 Memory loss (R41.3) Diagnosis 2 Physical decondition ing (R53.81) Referral Organization [facility] [address] Referring Provider First Name NIRMAL Referring Provider Last Name JR Referring Provider Speciality Internal edicine Referred Provider Specialty Multispecial ty Clinic or Group Practice General Notes [facility] Valdo roca , p: [phone], f: [phone] Referral Priority Routine Medications Medication SIG (Take, [...] 4 hrs; Duration: 30 days 11/24/2022 Active Jgiywrszjy-MGIN-Etsqnqhq 50-325-40 MG 1 capsule as needed Orally [...] Status W/U Status Risk Notes Problem Hypothyroidism (67673496) Other specified hypothyroidism (E03.8) Active confirmed Problem Diabetic retinopathy (7335925) 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) Active confirmed Problem Vitamin D deficiency (01968940) Vitamin D deficiency, unspecified (E55.9) Active confirmed Problem Carpal tunnel syndrome (15732884) Carpal tunnel syndrome, unspecified upper limb (G56.00) Active confirmed Problem Chronic pain (74715795) Other chronic pain (G89.29) Active confirmed Problem Adult health examination (948239516) Encounter for general adult medical examination without abnormal findings (Z00.00) Active confirmed Problem Memory loss (94802678) Memory loss (R41.3) Active confirmed Problem Depressive disorder (disorder) (92192350) Depression, unspecified depression type (F32.9) Active confirmed Problem Hypothyroidism (92657419) Hypothyroidism, unspecified type (E03.9) Active confirmed Problem Sore throat (727038752) Sore throat (J02.9) Active confirmed Problem Rectal pain (81525355) Rectal pain (K62.89) Active confirmed Problem Arthralgia of the upper arm (448275850) Left elbow pain (M25.522) Active confirmed Problem Arthralgia of the pelvic region and thigh (863661606) Hip pain, right (M25.551) Active confirmed Problem Exposure to tuberculosis (5135807204911) Exposure to TB (Z20.1) Active confirmed Problem Essential hypertension (62907514) Hypertension, unspecified type (I10) Active confirmed Problem Lumbar radiculopathy (793983879) Lumbar radiculopathy (M54.16) Active confirmed Problem Ataxia (13435390) Ataxia (R27.0) Active confirm ed Problem Displacement of lumbar intervertebral disc without myelopathy (01292960) Herniated intervertebral disc of lumbar spine (M51.26) Active confirmed Problem Mixed hyperlipidemia (609277458) Combined hyperlipidemia (E78.2) Active confirmed Problem Migraine aura without headache (727079933) 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) Active confirmed Problem Depressive disorder (disorder) (70846903) Depression, unspecified depression type (F32.A) Active confirmed Problem Avitaminosis D (66414362) Avitaminosis D (E55.9) Active confirmed Problem Mild major depression (23705141) 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) Active confirmed Vital Signs Heart Rate 79 /min 07/26/2024 Oximetry 99 % 07/26/2024 Blood pressure diastolic 84 mm Hg 07/26/2024 Height 66 in 07/26/2024 Blood pressure systolic 138 mm Hg 07/26/2024 Weight 164 lbs 07/26/2024 BMI 26.47 kg/m2 07/26/2024 Encounters Encounter Location Date Provider Diagnosis [facility] [address] [address] 11/30/2023 NIRMAL NORRIS Annual physical exam Z00.00 ; Encounter for screening for other disorder Z13.89 ; Encounter for screening for depression Z13.31 ; Hypertension, unspecified type I10 ; Lumbar radiculopathy M54.16 ; Hip pain, right M25.551 ; Combined hyperlipidemia E78.2 ; Dorsalgia, unspecified M54.9 ; Herniated intervertebral disc of lumbar spine M51.26 and Mild major depression F32.0 [facility] [address] [address] 03/28/2024 NIRMAL NORRIS Hypertension, unspec ified type I10 ; Lumbar radiculopathy M54.16 ; Hip pain, right M25.551 ; Combined hyperlipidemia E78.2 ; Dorsalgia, unspecified M54.9 ; Herniated intervertebral disc of lumbar spine M51.26 and Mild major depression F32.0 [facility] [address] [address] 07/26/2024 NIRMAL NORRIS Hypertension, unspec ified type [...] shoulder, left M25.512 [facility] [address] [address] 11/30/2023 LENCHO FAITH [facility] [address] [address] 03/06/2024 NIRMAL BUFFYHOT [facility] [address] [address] 03/07/[address] [facility] [address] [place] [address] 07/25/2024 NIRMAL BORHOT [facility] [address] [address] 07/26/2024 LENCHO FAITH [facility] [address] [address] 09/13/2024 NIRMAL BAERHOT [facility] [address] [address] 09/14/2024 NIRMAL JONEST Assessments Encounter Date Diagnosis (ICD Code) Assessment Notes Treatment Notes Treatment Clinical Notes Section Notes 03/28/2024 Hypertension, unspecified type (ICD-10 - I10) Acute Concerns/Problem List: 03/28/2024 Chronic conditions discussed. I have given him Nurtec samples Referral to [place] [facility], Patient to follow-up Labs reviewed Of note, some information is being carried forward from prior records for informational purposes only and is being cited so that efficiency, safety and quality of the patient's care is not compromised This note was prepared using voice recognition software and direct typing Please excuse inadvertent lead designer or typing errors, or uncorrected word substitutions Although every attempt has been made by the provider to proofread this document, occasional misspellings and typographical errors may still be present Due to the previous pandemic, and the use of personal protective equipment (PPE) This may decrease voice recognition accuracy Inadvertent lead designer errors may occur 07/26/2024 Hypertension, unspecified type (ICD-10 - I10) Acute Concerns/Problem List: 07/26/2024 Left shoulder films and orthopedics, I suspect OA or calcific tendinitis May benefit from steroid injections Lets request [place] [facility] notes _update labs and Medicare visit in the fall Of note, some information is being carried forward from prior records for informational purposes only and is being cited so that efficiency, safety and quality of the patient's care is not compromised This note was prepared using voice recognition software and direct typing Please excuse inadvertent lead designer or typing errors, or uncorrected word substitutions Although every attempt has been made by the provider to proofread this document, occasional misspellings and typographical errors may still be present Due to the previous pandemic, and the use of personal protective equipment (PPE) This may decrease voice recognition accuracy Inadvertent lead designer errors may occur 11/30/2023 Annual physical exam (ICD-10 - Z00.00) Patient is here for [facility] Acute Concerns/Problem List: 11/30/2023 Chronic conditions discussed. _update labs please Referral to [place] [facility] MOLST/HCP Discussed and Filed Of note, some information is being carried forward from prior records for informational purposes only and is being cited so that efficiency, safety and quality of the patient's care is not compromised This note was prepared using voice recognition software and direct typing Please excuse inadvertent lead designer or typing errors, or uncorrected word substitutions Although every attempt has been made by the provider to proofread this document, occasional misspellings and typographical errors may still be present Due to the previous pandemic, and the use of personal protective equipment (PPE) This may decrease voice recognition accuracy Inadvertent lead designer errors may occur 11/30/2023 Encounter for screening for other disorder (ICD-10 - Z13.89) Patient is here for [facility] Acute Concerns/Problem List: 11/30/2023 Chronic conditions discussed. _update labs please Referral to [place] [facility] MOLST/HCP Discussed and Filed Of note, some information is being carried forward from prior records for informational purposes only and is being cited so that efficiency, safety and quality of the patient's care is not compromised This note was prepared using voice recognition software and direct typing Please excuse inadvertent lead designer or typing errors, or uncorrected word substitutions Although every attempt has been made by the provider to proofread this document, occasional misspellings and typographical errors may still be present Due to the previous pandemic, and the use of personal protective equipment (PPE) This may decrease voice recognition accuracy Inadvertent lead designer errors may occur 07/26/2024 Lumbar radiculopathy (ICD-10 - M54.16) Acute Concerns/Problem List: 07/26/2024 Left shoulder films and orthopedics, I suspect OA or calcific tendinitis May benefit from steroid injections Lets request [place] [facility] notes _update labs and Medicare visit in the fall Of note, some information is being carried forward from prior records for informational purposes only and is being cited so that efficiency, safety and quality of the patient's care is not compromised This note was prepared using voice recognition software and direct typing Please excuse inadvertent lead designer or typing errors, or uncorrected word substitutions Although every attempt has been made by the provider to proofread this document, occasional misspellings and typographical errors may still be present Due to the previous pandemic, and the use of personal protective equipment (PPE) This may decrease voice recognition accuracy Inadvertent lead designer errors may occur 03/28/2024 Lumbar radiculopathy (ICD-10 - M54.16) Acute Concerns/Problem List: 03/28/2024 Chronic conditions discussed. I have given him Nurtec samples Referral to [place] [facility], Patient to follow-up Labs reviewed Of note, some information is being carried forward from prior records for informational purposes only and is being cited so that efficiency, safety and quality of the patient's care is not compromised This note was prepared using voice recognition software and direct typing Please excuse inadvertent lead designer or typing errors, or uncorrected word substitutions Although every attempt has been made by the provider to proofread this document, occasional misspellings and typographical errors may still be present Due to the previous pandemic, and the use of personal protective equipment (PPE) This may decrease voice recognition accuracy Inadvertent lead designer errors may occur 03/28/2024 Hip pain, right (ICD-10 - M25.551) Acute Concerns/Problem List: 03/28/2024 Chronic conditions discussed. I have given him Nurtec samples Referral to [place] [facility], Patient to follow-up Labs reviewed Of note, some information is being carried forward from prior records for informational purposes only and is being cited so that efficiency, safety and quality of the patient's care is not compromised This note was prepared using voice recognition software and direct typing Please excuse inadvertent lead designer or typing errors, or uncorrected word substitutions Although every attempt has been made by the provider to proofread this document, occasional misspellings and typographical errors may still be present Due to the previous pandemic, and the use of personal protective equipment (PPE) This may decrease voice recognition accuracy Inadvertent lead designer errors may occur 07/26/2024 Hip pain, right (ICD-10 - M25.551) Acute Concerns/Problem List: 07/26/2024 Left shoulder films and orthopedics, I suspect OA or calcific tendinitis May benefit from steroid injections Lets request [place] [facility] notes _update labs and Medicare visit in the fall Of note, some information is being carried forward from prior records for informational purposes only and is being cited so that efficiency, safety and quality of the patient's care is not compromised This note was prepared using voice recognition software and direct typing Please excuse inadvertent lead designer or typing errors, or uncorrected word substitutions Although every attempt has been made by the provider to proofread this document, occasional misspellings and typographical errors may still be present Due to the previous pandemic, and the use of personal protective equipment (PPE) This may decrease voice recognition accuracy Inadvertent lead designer errors may occur 11/30/2023 Encounter for screening for depression (ICD-10 - Z13.31) Patient is here for [facility] Acute Concerns/Problem List: 11/30/2023 Chronic conditions discussed. _update labs please Referral to [place] [facility] MOLST/HCP Discussed and Filed Of note, some information is being carried forward from prior records for informational purposes only and is being cited so that efficiency, safety and quality of the patient's care is not compromised This note was prepared using voice recognition software and direct typing Please excuse inadvertent lead designer or typing errors, or uncorrected word substitutions Although every attempt has been made by the provider to proofread this document, occasional misspellings and typographical errors may still be present Due to the previous pandemic, and the use of personal protective equipment (PPE) This may decrease voice recognition accuracy Inadvertent lead designer errors may occur 11/30/2023 Hypertension, unspecified type (ICD-10 - I10) Patient is here for [facility] Acute Concerns/Problem List: 11/30/2023 Chronic conditions discussed. _update labs please Referral to [place] [facility] MOLST/HCP Discussed and Filed Of note, some information is being carried forward from prior records for informational purposes only and is being cited so that efficiency, safety and quality of the patient's care is not compromised This note was prepared using voice recognition software and direct typing Please excuse inadvertent lead designer or typing errors, or uncorrected word substitutions Although every attempt has been made by the provider to proofread this document, occasional misspellings and typographical errors may still be present Due to the previous pandemic, and the use of personal protective equipment (PPE) This may decrease voice recognition accuracy Inadvertent lead designer errors may occur 07/26/2024 Combined hyperlipidemia (ICD-10 - E78.2) Acute Concerns/Problem List: 07/26/2024 Left shoulder films and orthopedics, I suspect OA or calcific tendinitis May benefit from steroid injections Lets request [place] [facility] notes _update labs and Medicare visit in the fall Of note, some information is being carried forward from prior records for informational purposes only and is being cited so that efficiency, safety and quality of the patient's care is not compromised This note was prepared using voice recognition software and direct typing Please excuse inadvertent lead designer or typing errors, or uncorrected word substitutions Although every attempt has been made by the provider to proofread this document, occasional misspellings and typographical errors may still be present Due to the previous pandemic, and the use of personal protective equipment (PPE) This may decrease voice recognition accuracy Inadvertent lead designer errors may occur 03/28/2024 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 I have given him Nurtec samples Referral to [place] [facility], Patient to follow-up Labs reviewed Of note, some information is being carried forward from prior records for informational purposes only and is being cited so that efficiency, safety and quality of the patient's care is not compromised This note was prepared using voice recognition software and direct typing Please excuse inadvertent lead designer or typing errors, or uncorrected word substitutions Although every attempt has been made by the provider to proofread this document, occasional misspellings and typographical errors may still be present Due to the previous pandemic, and the use of personal protective equipment (PPE) This may decrease voice recognition accuracy Inadvertent lead designer errors may occur 03/28/2024 Dorsalgia, unspecified (ICD-10 - M54.9) Acute Concerns/Problem List: 03/28/2024 Chronic conditions discussed. I have given him Nurtec samples Referral to [place] [facility], Patient to follow-up Labs reviewed Of note, some information is being carried forward from prior records for informational purposes only and is being cited so that efficiency, safety and quality of the patient's care is not compromised This note was prepared using voice recognition software and direct typing Please excuse inadvertent lead designer or typing errors, or uncorrected word substitutions Although every attempt has been made by the provider to proofread this document, occasional misspellings and typographical errors may still be present Due to the previous pandemic, and the use of personal protective equipment (PPE) This may decrease voice recognition accuracy Inadvertent lead designer errors may occur 07/26/2024 Dorsalgia, unspecified (ICD-10 - M54.9) Acute Concerns/Problem List: 07/26/2024 Left shoulder films and orthopedics, I suspect OA or calcific tendinitis May benefit from steroid injections Lets request [place] [facility] notes _update labs and Medicare visit in the fall Of note, some information is being carried forward from prior records for informational purposes only and is being cited so that efficiency, safety and quality of the patient's care is not compromised This note was prepared using voice recognition software and direct typing Please excuse inadvertent lead designer or typing errors, or uncorrected word substitutions Although every attempt has been made by the provider to proofread this document, occasional misspellings and typographical errors may still be present Due to the previous pandemic, and the use of personal protective equipment (PPE) This may decrease voice recognition accuracy Inadvertent lead designer errors may occur 11/30/2023 Lumbar radiculopathy (ICD-10 - M54.16) Patient is here for [facility] Acute Concerns/Problem List: 11/30/2023 Chronic conditions discussed. _update labs please Referral to [place] [facility] MOLST/HCP Discussed and Filed Of note, some information is being carried forward from prior records for informational purposes only and is being cited so that efficiency, safety and quality of the patient's care is not compromised This note was prepared using voice recognition software and direct typing Please excuse inadvertent lead designer or typing errors, or uncorrected word substitutions Although every attempt has been made by the provider to proofread this document, occasional misspellings and typographical errors may still be present Due to the previous pandemic, and the use of personal protective equipment (PPE) This may decrease voice recognition accuracy Inadvertent lead designer errors may occur 07/26/2024 Herniated intervertebral disc of lumbar spine (ICD-10 - M51.26) Acute Concerns/Problem List: 07/26/2024 Left shoulder films and orthopedics, I suspect OA or calcific tendinitis May benefit from steroid injections Lets request [place] [facility] notes _update labs and Medicare visit in the fall Of note, some information is being carried forward from prior records for informational purposes only and is being cited so that efficiency, safety and quality of the patient's care is not compromised This note was prepared using voice recognition software and direct typing Please excuse inadvertent lead designer or typing errors, or uncorrected word substitutions Although every attempt has been made by the provider to proofread this document, occasional misspellings and typographical errors may still be present Due to the previous pandemic, and the use of personal protective equipment (PPE) This may decrease voice recognition accuracy Inadvertent lead designer errors may occur 11/30/2023 Hip pain, right (ICD-10 - M25.551) Patient is [facility] for [facility] Acute Concerns/Problem List: 11/30/2023 Chronic conditions discussed. _update labs please Referral to [place] [facility] MOLST/HCP Discussed and Filed Of note, some information is being carried forward from prior records for informational purposes only and is being cited so that efficiency, safety and quality of the patient's care is not compromised This note was prepared using voice recognition software and direct typing Please excuse inadvertent lead designer or typing errors, or uncorrected word substitutions Although every attempt has been made by the provider to proofread this document, occasional misspellings and typographical errors may still be present Due to the previous pandemic, and the use of personal protective equipment (PPE) This may decrease voice recognition accuracy Inadvertent lead designer errors may occur 03/28/2024 Herniated intervertebral disc of lumbar spine (ICD-10 - M51.26) Acute Concerns/Problem List: 03/28/2024 Chronic conditions discussed. I have given him Nurtec samples Referral to [facility], Patient to follow-up Labs reviewed Of note, some information is being carried forward from prior records for informational purposes only and is being cited so that efficiency, safety and quality of the patient's care is not compromised This note was prepared using voice recognition software and direct typing Please excuse inadvertent lead designer or typing errors, or uncorrected word substitutions Although every attempt has been made by the provider to proofread this document, occasional misspellings and typographical errors may still be present Due to the previous pandemic, and the use of personal protective equipment (PPE) This may decrease voice recognition accuracy Inadvertent lead designer errors may occur 03/28/2024 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 I have given him Nurte samples Referral to [facility], Patient to follow-up Labs reviewed Of note, some information is being carried forward from prior records for informational purposes only and is being cited so that efficiency, safety and quality of the patient's care is not compromised This note was prepared using voice recognition software and direct typing Please excuse inadvertent lead designer or typing errors, or uncorrected word substitutions Although every attempt has been made by the provider to proofread this document, occasional misspellings and typographical errors may still be present Due to the previous pandemic, and the use of personal protective equipment (PPE) This may decrease voice recognition accuracy Inadvertent lead designer errors may occur 07/26/2024 Mild major depression (ICD-10 - F32.0) Acute Concerns/Problem List: 07/26/2024 Left shoulder films and orthopedics, I suspect OA or calcific tendinitis May benefit from steroid injections Lets request [facility] notes _update labs and Medicare visit in the fall Of note, some information is being carried forward from prior records for informational purposes only and is being cited so that efficiency, safety and quality of the patient's care is not compromised This note was prepared using voice recognition software and direct typing Please excuse inadvertent lead designer or typing errors, or uncorrected word substitutions Although every attempt has been made by the provider to proofread this document, occasional misspellings and typographical errors may still be present Due to the previous pandemic, and the use of personal protective equipment (PPE) This may decrease voice recognition accuracy Inadvertent lead designer errors may occur 11/30/2023 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 _update labs please Referral to [facility] MOLST/HCP Discussed and Filed Of note, some information is being carried forward from prior records for informational purposes only and is being cited so that efficiency, safety and quality of the patient's care is not compromised This note was prepared using voice recognition software and direct typing Please excuse inadvertent lead designer or typing errors, or uncorrected word substitutions Although every attempt has been made by the provider to proofread this document, occasional misspellings and typographical errors may still be present Due to the previous pandemic, and the use of personal protective equipment (PPE) This may decrease voice recognition accuracy Inadvertent lead designer errors may occur 11/30/2023 Dorsalgia, unspecified (ICD-10 - M54.9) Patient is here for [facility] Acute Concerns/Problem List: 11/30/2023 Chronic conditions discussed. _update labs please Referral to [facility] MOLST/HCP Discussed and Filed Of note, some information is being carried forward from prior records for informational purposes only and is being cited so that efficiency, safety and quality of the patient's care is not compromised This note was prepared using voice recognition software and direct typing Please excuse inadvertent lead designer or typing errors, or uncorrected word substitutions Although every attempt has been made by the provider to proofread this document, occasional misspellings and typographical errors may still be present Due to the previous pandemic, and the use of personal protective equipment (PPE) This may decrease voice recognition accuracy Inadvertent lead designer errors may occur 07/26/2024 Other chronic pain (ICD-10 - G89.29) Acute Concerns/Problem List: 07/26/2024 Left shoulder films and orthopedics, I suspect OA or calcific tendinitis May benefit from steroid injections Lets request [facility] notes _update labs and Medicare visit in the fall Of note, some information is being carried forward from prior records for informational purposes only and is being cited so that efficiency, safety and quality of the patient's care is not compromised This note was prepared using voice recognition software and direct typing Please excuse inadvertent lead designer or typing errors, or uncorrected word substitutions Although every attempt has been made by the provider to proofread this document, occasional misspellings and typographical errors may still be present Due to the previous pandemic, and the use of personal protective equipment (PPE) This may decrease voice recognition accuracy Inadvertent lead designer errors may occur 07/26/2024 Encounter for examination of blood pressure without abnormal findings (ICD-10 - Z01.30) Acute Concerns/Problem List: 07/26/2024 Left shoulder films and orthopedics, I suspect OA or calcific tendinitis May benefit from steroid injections Lets request [facility] notes _update labs and Medicare visit in the fall Of note, some information is being carried forward from prior records for informational purposes only and is being cited so that efficiency, safety and quality of the patient's care is not compromised This note was prepared using voice recognition software and direct typing Please excuse inadvertent lead designer or typing errors, or uncorrected word substitutions Although every attempt has been made by the provider to proofread this document, occasional misspellings and typographical errors may still be present Due to the previous pandemic, and the use of personal protective equipment (PPE) This may decrease voice recognition accuracy Inadvertent lead designer errors may occur 11/30/2023 Herniated intervertebral disc of lumbar spine (ICD-10 - M51.26) Patient is here for [facility] Acute Concerns/Problem List: 11/30/2023 Chronic conditions discussed. _update labs please Referral to [facility] MOLST/HCP Discussed and Filed Of note, some information is being carried forward from prior records for informational purposes only and is being cited so that efficiency, safety and quality of the patient's care is not compromised This note was prepared using voice recognition software and direct typing Please excuse inadvertent lead designer or typing errors, or uncorrected word substitutions Although every attempt has been made by the provider to proofread this document, occasional misspellings and typographical errors may still be present Due to the previous pandemic, and the use of personal protective equipment (PPE) This may decrease voice recognition accuracy Inadvertent lead designer errors may occur 11/30/2023 Mild major depression (ICD-10 - F32.0) Patient is here for [facility] Acute Concerns/Problem List: 11/30/2023 Chronic conditions discussed. _update labs please Referral to [facility] MOLST/HCP Discussed and Filed Of note, some information is being carried forward from prior records for informational purposes only and is being cited so that efficiency, safety and quality of the patient's care is not compromised This note was prepared using voice recognition software and direct typing Please excuse inadvertent lead designer or typing errors, or uncorrected word substitutions Although every attempt has been made by the provider to proofread this document, occasional misspellings and typographical errors may still be present Due to the previous pandemic, and the use of personal protective equipment (PPE) This may decrease voice recognition accuracy Inadvertent lead designer errors may occur 07/26/2024 Pain, joint, shoulder, left (ICD-10 - M25.512) Acute Concerns/Problem List: 07/26/2024 Left shoulder films and orthopedics, I suspect OA or calcific tendinitis May benefit from steroid injections Lets request [facility] notes _update labs and Medicare visit in the fall Of note, some information is being carried forward from prior records for informational purposes only and is being cited so that efficiency, safety and quality of the patient's care is not compromised This note was prepared using voice recognition software and direct typing Please excuse inadvertent lead designer or typing errors, or uncorrected word substitutions Although every attempt has been made by the provider to proofread this document, occasional misspellings and typographical errors may still be present Due to the previous pandemic, and the use of personal protective equipment (PPE) This may decrease voice recognition accuracy Inadvertent lead designer errors may occur Plan Of Treatment Pending [...] A1C 06/21/2023 LIPID PANEL 06/21/2023 LIPID PANEL 07/15/2021 LIPID PANEL 05/07/2020 PSA, SCREEN 07/15/2021 TSH 07/15/2021 TSH WITH [...] PLUS 07/15/2021 THROAT CULTURE 12/18/2021 COMPLETE URINALYSIS 07/15/2021 COMPLETE URINALYSIS 05/07/2020 SARS CoV 2 RNA(COVID 19), QUALITATIVE NA AT 12/18/2021 Future Test Test Name Order Date 25OH VITAMIN D 11/21/2022 CBC (COMPLETE BLOOD COUNT) WITH DIFF COMPREHENSIVE METABOLIC PANEL 11/21/2022 HEMOGLOBIN A1C 11/21/2022 LIPID PANEL 11/21/2022 PSA, SCREEN 11/21/2022 T4, TOTAL 11/21/2022 TSH 11/21/2022 URINALYSIS W/REFLEX CULTURE 11/21/2022 Next Appt Details Provider Name:NIRMAL NORRIS, 11/28/2024 09:00:00 AM, [address] [place] [address], [phone], Insurance Providers Payer Name Payer Address Payer Phone Subscriber Number Group Number Insured Name Patient Relationship to Insured Coverage Start Date Coverage End Date [employer] or Options [address] [place] [id number] [phone] [id number] ANTHONY LAND Self - patient is the insured Medical (General) History Medical History History ICD Code hypertension asthma seasonal allergies hemorrhoids thyroid disease Arthritis anxiety depression Surgical History Surgery Date(Month/Year) inguinal hernia repair
--- OUTSIDE RECORDS SUMMARY | 2024-11-09 09:32 | XMS_ITS | Clinical Summary ---
Author Organization [facility] Address [address] [place] [address] Care Team Providers Care Policy Change Clerks Supervisor Name Role Phone Awilda Maldonado DO Primary Care Provider [phone] Social History Tobacco Use Types Packs/Day Years [...] age to complete this topic Care Teams Policy Change Clerks Supervisor Relationship Specialty Start Date End Date Awilda Maldonado DO [address] [address] PCP - General Family Medicine 07/21/19
--- OUTSIDE RECORDS SUMMARY | 2024-11-09 09:33 | XMS_ITS | Clinical Summary ---
Author Organization [facility] Address [address] [place] [address] Phone Care Team Providers Care Maple Syrup Maker Name Role Phone Rishabh Margy Flores NP Primary Care Provider [phone] Allergies No known active allergies Medications albuterol [...] each day at the same time. Active fluticasone-dolly meterol (Wixela Inhub) 250-50 mcg/dose diskus inhaler Inhale 1 puff by mouth 2 (two) times a day. Rinse mouth with water after use to reduce aftertaste and incidence of candidiasis. Do not swallow. 3 each 5 01/11/20 25 Active albuterol HFA (Ventolin HFA) 90 mcg/actuation inhaler Inhale 2 puffs by mouth every 6 (six) hours if needed for wheezing. 3 each 5 10/13/19 26 Active Encounters Date Type Department Care Team Description 10/10/2024 Telephone Pulmonology - [address] [place] [address] Aiyana Gale MD 08/30/2024 2:00 PM EDT Consult Orthopedic Surgery - [place] [address] [facility] [address] [place] [id number] Estevan Hylton MD Arthritis of left acromioclavicular joint (Primary Dx); Pain in left shoulder; Rotator cuff tendinitis, left; Impingement of left shoulder from Last 3 Months Medical History Medical [...] Description 12/11/2024 8:30 AM EST Office Visit Pulmonology - [address] [place] [id number] Aiyana Gale MD [address] [facility] [address] [place] [address] Health Maintenance Due Date Last Done Comments Colorectal Cancer Screening: Colonoscopy 1968 Diabetes: Annual GFR (Glomerular Filtration Rate) 1968 Diabetes: Annual Foot Exam 1978 Diabetes: Annual Retina Eye Exam 1978 Hepatitis B Vaccines (1 of 3 - 19+ 3-dose series) 04/20/1987 Pneumococcal Vaccine: 50+ Years (1 of 2 - PCV) 04/20/1987 Zoster Vaccines (1 of 2) 2018 Cholesterol Screening (Lipid Panel) 01/17/2022 HIV Screening 01/17/2022 Hepatitis C Screening 01/17/2022 Social Influencers of Health Screening 01/17/2022 Depression Screening 02/09/2024 Hypertension/CHF/CAD Annual BMP Blood Test 05/16/2024 Diabetes: Annual Urine Albumin-Creatinine Ratio (uACR) 07/13/2024 Diabetes: Blood Sugar Control Test (HGBA1C) 07/13/2024 COVID-19 Vaccine ( season) 2024 10/15/2021, 12/13/2020, 05/18/2020, Additional history exists Influenza Vaccine (#1) 2024 , 11/20/2020, 03/11/2020 DTaP,Tdap,and Td Vaccines (2 - Td or Tdap) 12/21/2032 12/21/2022 RSV Immunization Adult Patients (1 - 1-dose 75+ series) 04/20/2043 HIB Vaccines Aged Out No longer eligi [...] age to complete this topic Insurance [facility] Member Subscriber Plan / Payer (Ef fective 2018-Present) Name:DONAVON MELISSA Relation to Subscriber:Self Name:Donavon Sprague Payer ID:[id number] Group ID:[id number] Type:Not on file Address: [facility] [address] [place] [address] Care Teams Maple Syrup Maker Relationship Specialty Start Date End Date Margy Keating NP [address] [address] PCP - General Nurse Practitioner 08/30/24
== END 2024-11-09 09:32 | disposition home or self-care (01) ==
LOC: HO.HNS 08:56
PROVIDERS: Visit Provider Physician Assistant
DX: R29.898 Other symptoms and signs involving the musculoskeletal system (principal)
CPT/HCPCS: 99024

== ENCOUNTER → 2024-11-09 08:55 | Outpatient (BNVA) | payer OTHER, SELFPAY | PROVIDERS: Visit Provider Physician Assistant | DX: R53.1 Weakness (principal); R29.898 Other symptoms and signs involving the musculoskeletal system; Z98.890 Other specified postprocedural states | CPT/HCPCS: 99212 ==